=== PATIENT | female | born 1995 | race Caucasian/White ===

== ENCOUNTER 2024-04-12 11:44 | Observation (INO) | payer OTHER, SELFPAY ==
[2024-04-12 12:14] VITALS: BP 117/65; PULSE 80
[2024-04-12 12:32] VITALS: TEMP 36.6
[2024-04-12 13:05] VITALS: TEMP 36.2
[2024-04-12 13:08] LABS: Bilirubin Urine NEGATIVE (NEGATIVE); Blood Urine NEGATIVE (NEGATIVE); Clarity Urine SL CLOUDY (CLEAR); Color Urine YELLOW (YELLOW); Glucose Urine UA NEGATIVE (NEGATIVE); Ketones Urine NEGATIVE (NEGATIVE); Leukocyte Esterase Urine NEGATIVE (NEGATIVE); Nitrite Urine NEGATIVE (NEGATIVE); Protein Urine TRACE mg/dL (NEG/TRACE); Specific Gravity Urine 1.015 (1.005-1.025); Urobilinogen Urine >=8.0 EU/dL (0.2-1.0)
[2024-04-12 13:26] LABS: Urine Microscopic Indicated NO
== END 2024-04-12 14:30 | disposition home or self-care (01) ==
PROVIDERS: Admitting Provider Obstetrics & Gynecology Gynecology; Visit Provider Obstetrics & Gynecology Gynecology
DX: O36.8190 Decreased fetal movements, unspecified trimester, not applicable or unspecified (principal); Z3A.00 Weeks of gestation of pregnancy not specified; O99.891 Other specified diseases and conditions complicating pregnancy; R10.9 Unspecified abdominal pain
CPT/HCPCS: 59025; 81003; G0378; G0379

== ENCOUNTER 2024-04-16 00:46 | Emergency (ER) | payer OTHER, SELFPAY ==
[2024-04-16 00:50] VITALS: BP 104/69; PULSE 85; TEMP 37; O2SAT 99; BMI 30.9
--- OUTSIDE RECORDS SUMMARY | 2024-04-16 00:54 | XMS_ITS | CCD ---
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 medical benefits to weight loss. We can offer counselling, referral, and/or medical support in addressing this problem. Visit ChooseMyPlate.gov for useful information to help make better choices when eating. Your BMI and weight management will be followed at subsequent visits. 5. Over weight (E66.3: Overweight) See #4. 6. Smoker (F17.200: Nicotine dependence, unspecified, uncomplicated) Continue to work on smoking cessation. Follow-up With When Contact Information Ana Bynum CNP Only if needed Additional Instructions: Patient Education Tobacco Use Disorder BMI for Adults Migraine Headache Gastroesophageal Reflux Disease, Adult, Gogj-ds-[place] Managing Bipolar Disorder Problem List/Past Medical History Ongoing Acute low back pain Bipolar disorder BMI 29.0-29.9,adult Dizziness GERD (gastroesophageal reflux disease) Left hip pain Migraine without aura Over weight Smoker Historical Persistent headaches Medications Albuterol (Eqv-ProAir HFA) 90 mcg/inh inhalation aerosol, 2 puff(s), Inhalation, q4hr, PRN, Not taking aripiprazole 2 mg Tab clindamycin 300 mg oral cap, 300 mg= 1 cap(s), Oral, BID, Not taking Dulcolax Stool Softener escitalopram 5 mg oral tablet hydrOXYzine pamoate 25 mg Cap Naprosyn 500 mg Tab, 500 mg= 1 tab(s), Oral, BID, PRN, Not taking naproxen 500 mg Tab, 500 mg= 1 tab(s), Oral, BID, Not taking nicotine 14 mg/24 hr Transderm ER Film, 1 patch(es), Topical, Daily, Not taking omeprazole 40 mg Cap-DR, 40 mg= 1 cap(s), Oral, Daily, 2 refills Pepcid 20 mg Tab, 20 mg= 1 tab(s), Oral, Daily, Not taking Multivitamins, 1 tab(s), Oral, Daily, Not taking Zofran 4 mg Tab, 4 mg= 1 tab(s), Oral, q8hr, PRN, Not taking Zofran ODT 4 mg Tab-Dis, 4 mg= 1 tab(s), Oral, q6hr, Not taking Allergies Chantix Starter Pack (Hallucinations) SUMAtriptan (Numbness) penicillins (Rash) Social History Alcohol - Denies Alcohol Use, 08/07/2019 Employment/School - Not employed or in school, 08/07/2019 Substance Abuse - Denies Substance Abuse, 08/07/2019 Tobacco - High Risk, 08/07/2019 10 or more cigarettes (1/2 pack or more)/day in last 30 days Tobacco Use:. Never Smokeless Tobacco Use:. Cigarettes, Yes, 03/24/2022 Family History Diabetes mellitus type 2: Mother and Father. Primary malignant neoplasm of colon: Uncle. Immunizations Vaccine Date Status Comments influen (more content not included)... [facility] Comment on above: Result Comment: Elec tronically Signed By: Ana Bynum [email or web address]\Date and Time Signed: 03/24/22 12:08 EST Patient Educationon 03-24-19 Patient Education Gastroenterology Gastroesophageal Reflux Disease, Adult Gastroesophageal reflux (JO) happens when acid from the stomach flows up into the tube that connects the mouth and the stomach (esophagus). Normally, food travels down the esophagus and stays in the stomach to be digested. With JO, food and stomach acid sometimes move back up into the esophagus. You may have a disease called gastroesophageal reflux disease (GERD) if the reflux: ? Happens often. ? Causes frequent or very bad symptoms. ? Causes problems such as damage to the esophagus. When this happens, the esophagus becomes sore and swollen (inflamed). Over time, GERD can make small holes (ulcers) in the lining of the esophagus. What are the causes? This condition is caused by a problem with the muscle between the esophagus and the stomach. When this muscle is weak or not normal, it does not close properly to keep food and acid from coming back up from the stomach. The muscle can be weak because of: ? Tobacco use. ? . ? Having a certain type of hernia (hiatal hernia). ? Alcohol use. ? Certain foods and drinks, such as coffee, chocolate, onions, and peppermint. What increases the risk? You are more likely to develop this condition if you: ? Are overweight. ? Have a disease that affects your connective tissue. ? Use NSAID medicines. What are the signs or symptoms? Symptoms of this condition include: ? Heartburn. ? Difficult or painful swallowing. ? The feeling of having a lump in the throat. ? A bitter taste in the mouth. ? Bad breath. ? Having a lot of saliva. ? Having an upset or bloated stomach. ? Belching. ? Chest pain. Different conditions can cause chest pain. Make sure you see your doctor if you have chest pain. ? Shortness of breath or noisy breathing (wheezing). ? Ongoing (chronic) cough or a cough at night. ? Wearing away of the surface of teeth (tooth enamel). ? Weight loss. How is this treated? Treatment will depend on how bad your symptoms are. Your doctor may suggest: ? Changes to your diet. ? Medicine. ? Surgery. Follow these instructions at home: Eating and drinking ? Follow a diet as told by your doctor. You may need to avoid foods and drinks such as: ? Coffee and tea (with or without caffeine). ? Drinks that contain alcohol. ? Energy drinks and sports drinks. ? Bubbly (carbonated) drinks or sodas. ? Chocolate and cocoa. ? Peppermint and mint flavorings. ? Garlic and onions. ? Horseradish. ? Spicy and acidic foods. These include peppers, chili powder, winkler powder, vinegar, hot sauces, and BBQ sauce. ? [place] fruit juices and citrus fruits, such as oranges, keren, and limes. ? Tomato-based foods. These include red sauce, chili, salsa, and pizza with red sauce. ? Fried and fatty foods. These include donuts, martiniquais fries, potato chips, and high-fat dressings. ? High-fat meats. These include hot dogs, rib eye steak, sausage, ham, and cha. ? High-fat dairy items, such as whole milk, butter, and cream cheese. ? Eat small meals often. Avoid eating large meals. ? Avoid drinking large amounts of liquid with your meals. ? Avoid eating meals during the 2?3 hours before bedtime. ? Avoid lying down right after you eat. ? Do not exercise right after you eat. Lifestyle ? Do not use any products that contain nicotine or tobacco. These include cigarettes, e-cigarettes, and chewing tobacco. If you need help quitting, ask your doctor. ? Try to lower your stress. If you need help doing this, ask your doctor. ? If you are overweight, lose an amount of weight that is healthy for you. Ask your doctor about a safe weight loss goal. General instructions ? Pay attention to any changes in your symptoms. ? Take xdgl-bpl-wabnjev and prescription medicines only as told by your doctor. Do not take aspirin, ibuprofen, or other NSAIDs unless your doctor says it is okay. ? Wear loose clothes. Do not wear anything tight around your waist. ? Raise (elevate) the head of your bed about 6 inches (15 cm). ? Avoid bending over if this makes your symptoms worse. ? Keep all follow-up visits as told by your doctor. This is important. Contact a doctor if: ? You have new symptoms. ? You lose weight and you do not know why. ? You have trouble swallowing or it hurts to swallow. ? You have wheezing or a cough that keeps happening. ? Your symptoms do not get better with treatment. ? You have a hoarse voice. Get help right away if: ? You have pain in your arms, neck, jaw, teeth, or back. ? You feel sweaty, dizzy, or light-headed. ? You have chest pain or shortness of breath. ? You throw up (vomit) and your throw-up looks like blood or coffee grounds. ? You pass out (faint). ? Your poop (stool) is bloody or black. ? You cannot swallow, drink, or eat. Summary ? If a person has gastroesophag (more content not included)... [facility] Ambulatory Visit Summaryon 1 03-23-2021 Ambulatory Visit Summary JENI JANE :1995 Visit Date:01/20/2022 Ambulatory Visit Instructions Your Diagnosis GERD (gastroesophageal reflux disease) Dizziness Smoker BMI 29.0-29.9,adult Over weight Left hip pain Migraine without aura Your Care Team Attending Physician - Ana Bynum CNP Primary Care Physician - Ana Bynum CNP This Is Your Medications List sumatriptan (SUMAtriptan 100 mg Tab) Contact prescribing physician if questions or concerns albuterol (Albuterol (Eqv-ProAir HFA) 90 mcg/inh inhalation aerosol) clindamycin (clindamycin 300 mg oral cap) docusate (Dulcolax Stool Softener) famotidine (Pepcid 20 mg Tab) multivitamin, ( Multivitamins) naproxen (Naprosyn 500 mg Tab) naproxen (naproxen 500 mg Tab) nicotine (nicotine 14 mg/24 hr Transderm ER Film) omeprazole (omeprazole 40 mg Cap-DR) ondansetron (Zofran 4 mg Tab) ondansetron (Zofran ODT 4 mg Tab-Dis) Discharge Vitals Temperature (Oral) 36.7 ?C Heart Rate (Peripheral) 49 Blood Pressure 122/60 Height 162 cm Height 64 in Weight 77.2 kg Weight 169.84 lb BMI 29.42 What to do next You Need to Complete the Following XR Hip 2-3 Views Left, 01/20/22, Routine, Order for future visit, Transport Mode: Ambulatory, Reason: Hip pain, No, Left hip pain, pp_set_radiology_subspecialty , [facility] [place] XR Spine Scoliosis 1 view, 01/20/22, Routine, Order for future visit, Transport Mode: Ambulatory, Reason: Scoliosis, No, Scoliosis, pp_set_radiology_subspecialty , [facility] [place] Medications What How Much When Why Instructions New sumatriptan (SUMAtriptan 100 mg Tab) 1 Tablets By Mouth As Directed as needed for Migraine headache Migraine without aura may repeat dose in 2 hours if needed, max dose 2 tablets per day Pickup at [facility] Unchanged albuterol (Albuterol (Eqv-ProAir HFA) 90 mcg/ inh inhalation aerosol) 2 Puffs Inhalation Every 4 hours as needed for Cough and Congestion Contact prescribing physician if questions or concerns Unchanged clindamycin (clindamycin 300 mg oral cap) 1 Capsules By Mouth 2 times a day Contact prescribing physician if questions or concerns Unchanged docusate (Dulcolax Stool Softener) Contact prescribing physician if questions or concerns Unchanged famotidine (Pepcid 20 mg Tab) 1 Tablets By Mouth Every day Contact prescribing physician if questions or concerns Unchanged multivitamin, ( Multivitamins) 1 Tablets By Mouth Every day Contact prescribing physician if questions or concerns Unchanged naproxen (Naprosyn 500 mg Tab) 1 Tablets By Mouth 2 times a day as needed for for pain Contact prescribing physician if questions or concerns Unchanged naproxen (naproxen 500 mg Tab) 1 Tablets By Mouth 2 times a day with food Contact prescribing physician if questions or concerns Unchanged nicotine (nicotine 14 mg/ 24 hr Transderm ER Film) 1 Patches Topical Every day Smoker Step 2- apply daily for 2 weeks, then step down to 7 mg/ d. Contact prescribing physician if questions or concerns Unchanged omeprazole (omeprazole 40 mg Cap-DR) 1 Capsules By Mouth Every day GERD (gastroesophageal reflux disease) Contact prescribing physician if questions or concerns Unchanged ondansetron (Zofran 4 mg Tab) 1 Tablets By Mouth Every 8 hours as needed for Nausea/Vomiting Contact prescribing physician if questions or concerns Unchanged ondansetron (Zofran ODT 4 mg Tab-Dis) 1 Tablets By Mouth Every 6 hours Contact prescribing physician if questions or concerns Pharmacy Information [facility]: [address] [place], [place] [id number] [phone] Allergies penicillins (Rash) Problems Ongoing - Any problem that you are currently receiving treatment for. Acute low back pain BMI 29.0-29.9,adult Dizziness GERD (gastroesophageal reflux disease) Left hip pain Migraine without aura Over weight Persistent headaches Smoker Historical - Any problem that you are no longer receiving treatment for. [facility] Family Medicine Office/Clini c Noteon 01-20-2022 Family Medicine Office/Clinic Note Chief Complaint pt here for 1 month f/u. wants to go over labs. wants to talk about left hip, was told she had something wrong with it as a child. History of Present Illness Pt presents today for 1 month f/u. GERD- was started on Omeprazole 40 mg QD at last visit. Symptoms are gone. Laid off spicy foods and red sauce. Denies nausea or abd pain now. Dizziness- still has dizzy spells, when she stands up too fast. Not as often now. Associated with headaches. Headaches since she was in middle school- gets them almost daily. No auras. Frontal. Takes Tylenol for them. Cut Ibuprofen out because she was needing it more and more. Was taking 4 of them daily. Tylenol does help but still gets them daily. Leads to dizziness. Worse around her period. Smoker- was given nicotine patches last month. Tried using them for a few days, kept falling off. Was going through them quickly. Tried gum and did not like the taste of it. When she was little, she had a disease of her left hip, does not remember the name. Eroded the ball of her hip. Was told by a specialist it yunior have to grow back eventually. Has not had it checked up on. Hip bothers her on occ, when she is on her feet for too long. pops a lot as well. Denies paresthesia. Left hip pain radiates down into her ant thigh. Pain now 2/10. No limping. Always has lower back pain. No knee pain. When she sits crossed legged, her left hip only goes to far. Review of Systems PHQ Score Initial Depression Screen Score: 0 Constitutional: no fever, no chills, no sweats, no weakness, no fatigue, no body aches. Skin: no rash, no skin lesions, no petechiae. Eyes: no eye irritation, no eye drainage, no blurry vision, no double vision, no loss of vision, no foreign body sensation. Throat: no pain, no difficulty swallowing, no laryngitis, no hoarseness. Respiratory: no shortness of breath, no cough, no wheezing. Cardiovascular: no chest pain, no palpitations, no edema. Gastrointestinal: no nausea, no vomiting, no diarrhea, no bleeding, no abdominal pain. Genitourinary: no dysuria, no hematuria, no frequency, no urgency, no hesitancy. Musculoskeletal: reports low back pain, no neck pain, no shoulder pain, + left hip and thigh pain, no knee pain, no trauma/injury, no joint pain, no joint swelling, no muscle aches, no change in ROM. Neurovascular: no numbness, no tingling, reports headaches, no dizziness. Psychological: see depression screen. Physical Exam Vitals & Measurements T: 36.7 ?C(Oral) HR: 49(Peripheral) BP: 122/60 SpO2: 99% HT: 64 in HT: 162 cm WT: 77.2 kg WT: 169.84 lb BMI: 29.42 General: well developed, well groomed, well nourished, in no acute distress. Eyes: pupils equal, round, reactive to light. Conjunctivae normal and sclera clear. Extraocular movement not intact. Ears: bilateral external canals intact , no discharge. Hearing grossly normal to conversational speech. Neck: supple, no masses palpable. Trachea midline. Lungs: normal respiratory effort. Lungs clear and equal to auscultation throughout all nascimento anterior and posterior. Cardiovascular: S1 and S2 present, with regular rate and rhythm. No murmur. No peripheral edema. Abdomen: soft, non-distended, non-tender. Bowel sounds active throughout. Musculoskeletal: scoliosis noted. decreased range of motion with left hip. Point tenderness noted to left anterior upper thigh. Joints normal. No erythema, edema, effusion, crepitus, or ecchymosis. Gait steady without assistance. Neg trendelenberg. Neurologic: Cranial nerves II-XII grossly intact. Skin: [place], warm and dry. No rashes, ulcerations, or suspicious lesions noted on visible/exposed skin. Mental status: alert and oriented x 3. Normal mood and affect, normal behavior for age. Assessment/Plan 1. GERD (gastroesophageal reflux disease) (K21.9: Gastro-esophageal reflux disease without esophagitis) Stable, improved on PPI. Will continue for 8 weeks total. Work on lifestyle changes. 2. Dizziness (R42: Dizziness and giddiness) Need to improve headaches. 3. Smoker, (F17.200: Nicotine dependence, unspecified, uncomplicated) Will trial Chantix. Reviewed dosing. Smoker Ordered: varenicline, See Instructions, Step 1: Take 1 tablet daily for 3 days. then 1 tablet twice daily for 4 days. Start 1 week before planned quit date. Stop smoking 8-35 days after starting medicine if quit date unplanned., # 11 tab(s), Refills(s) 0, Pharmacy:... varenicline, 1 mg = 1 tab(s), Oral, BID, Start on day 8. Take 1 tablet twice daily. Take with food. If not quit date planned, stop smoking 8-35 days after starting drug is quit date unplanned. May continue additional 12 weeks if not successful., # 154 tab(s), Ref... 4. BMI 29.0-29.9,adult (Z68.29: Body mass index [BMI] 29.0-29.9, adult) The standard range for ages 18 and older is >=18.5 and < 25 kg/m2. Your BMI today was above this range, this falls in the overweight category and there are medical benefits to weight loss. We can offer counselling, re (more content not included)... [facility] Comment on above: Result Comment: Elec tronically Signed By: Ana Bynum CNP.memo\Date and Time Signed: 01/20/22 11:29 EST Patient Educationon 01-21-20 Patient Education Gastroenterology Gastroesophageal Reflux Disease, Adult Gastroesophageal reflux (JO) happens when acid from the stomach flows up into the tube that connects the mouth and the stomach (esophagus). Normally, food travels down the esophagus and stays in the stomach to be digested. However, when a person has JO, food and stomach acid sometimes move back up into the esophagus. If this becomes a more serious problem, the person may be diagnosed with a disease called gastroesophageal reflux disease (GERD). GERD occurs when the reflux: ? Happens often. ? Causes frequent or severe symptoms. ? Causes problems such as damage to the esophagus. When stomach acid comes in contact with the esophagus, the acid may cause soreness (inflammation) in the esophagus. Over time, GERD may create small holes (ulcers) in the lining of the esophagus. What are the causes? This condition is caused by a problem with the muscle between the esophagus and the stomach (lower esophageal sphincter, or LES). Normally, the LES muscle closes after food passes through the esophagus to the stomach. When the LES is weakened or abnormal, it does not close properly, and that allows food and stomach acid to go back up into the esophagus. The LES can be weakened by certain dietary substances, medicines, and medical conditions, including: ? Tobacco use. ? . ? Having a hiatal hernia. ? Alcohol use. ? Certain foods and beverages, such as coffee, chocolate, onions, and peppermint. What increases the risk? You are more likely to develop this condition if you: ? Have an increased body weight. ? Have a connective tissue disorder. ? Use NSAID medicines. What are the signs or symptoms? Symptoms of this condition include: ? Heartburn. ? Difficult or painful swallowing. ? The feeling of having a lump in the throat. ? A?bitter taste in the mouth. ? Bad breath. ? Having a large amount of saliva. ? Having an upset or bloated stomach. ? Belching. ? Chest pain. Different conditions can cause chest pain. Make sure you see your health care provider if you experience chest pain. ? Shortness of breath or wheezing. ? Ongoing (chronic) cough or a night-time cough. ? Wearing away of tooth enamel. ? Weight loss. How is this diagnosed? Your health care provider will take a medical history and perform a physical exam. To determine if you have mild or severe GERD, your health care provider may also monitor how you respond to treatment. You may also have tests, including: ? A test to examine your stomach and esophagus with a small camera (endoscopy). ? A test that?measures the acidity level in your esophagus. ? A test that?measures how much pressure is on your esophagus. ? A barium swallow or modified barium swallow test to show the shape, size, and functioning of your esophagus. How is this treated? The goal of treatment is to help relieve your symptoms and to prevent complications. Treatment for this condition may vary depending on how severe your symptoms are. Your health care provider may recommend: ? Changes to your diet. ? Medicine. ? Surgery. Follow these instructions at home: Eating and drinking ? Follow a diet as recommended by your health care provider. This may involve avoiding foods and drinks such as: ? Coffee and tea (with or without caffeine). ? Drinks that contain?alcohol. ? Energy drinks and sports drinks. ? Carbonated drinks or sodas. ? Chocolate and cocoa. ? Peppermint and mint flavorings. ? Garlic and onions. ? Horseradish. ? Spicy and acidic foods, including peppers, chili powder, winkler powder, vinegar, hot sauces, and barbecue sauce. ? [place] fruit juices and citrus fruits, such as oranges, keren, and limes. ? Tomato-based foods, such as red sauce, chili, salsa, and pizza with red sauce. ? Fried and fatty foods, such as donuts, martiniquais fries, potato chips, and high-fat dressings. ? High-fat meats, such as hot dogs and fatty cuts of red and white meats, such as rib eye steak, sausage, ham, and cha. ? High-fat dairy items, such as whole milk, butter, and cream cheese. ? Eat small, frequent meals instead of large meals. ? Avoid drinking large amounts of liquid with your meals. ? Avoid eating meals during the 2?3 hours before bedtime. ? Avoid lying down right after you eat. ? Do not exercise right after you eat. Lifestyle ? Do not use any products that contain nicotine or tobacco, such as cigarettes, e-cigarettes, and chewing tobacco. If you need help quitting, ask your health care provider. ? Try to reduce your stress by using methods such as yoga or meditation. If you need help reducing stress, ask your health care provider. ? If you are overweight, reduce your weight to an amount that is healthy for you. Ask your health care provider for guidance about a safe weight loss goal. General instruct (more content not included)... [facility] Coding Summary.on 01-04-2022 Coding Summary. CD:[id number]:[id number] Gh0bWw+PG hlYWQ+CF2KPIThD02ymVBbpY2KA1c GGQ0QROPXKNKAMX0IPL7qcKF9DXvb Q0PqazGv QykfzGGdAS23ZAh4HZU8kNeyWFofk H0xnTJxN0u3OiLhIU47zX30UPkqXG UpNeV6DdBetlazvZUl C8rgKvJrnRPqTkz+PHRhYmxlIHdpZ JQtWOarTRMlHbItaJfkWO7dAi7tTI VyLWNvbGxhcHNlOiBj k6ivFCLhEOjjUJ3cfDvsL6TzrQK2B BRei5m1Yp21uBP+VXTfUSD3qTldHG srd946ByOas3wuHBW5 zUCtTXnvHAO7H08kt5M6QFSoUMJzI BD5zOR2fO2knJjpizfhY5DxtZMoOl M1MPH5nYGnwR3jzWgf khnziZ4hTeq+E37QFA7JCCREWA5OK pu6L4BzFyaibMG+RH79KIIzEO18eE ZteIPsh0hjxSy2FuEk PGHnLOY5lWwcUTxdv8OpOYYbC43hg JUuv9W1BVJgbXkepCFnNpBqhTJ9zP 8wGLthuitmv1ijceql Vkhnz7fqnx10oM26Y42uNGmiTYKsT SJ8CXNsGHOreHntoa8snZ3oLd9+ID eiw7ltu2oqkYc1RvIk LVYqnkQafFgsHBE2s9XiYr16I0Wpw Zrsb5DdHot0oj87lEEce1J1iSJ3RD glTYBjdY1uRFchCeS8 KQDcHoAioS25pWByMExkXb1jsAssv MsgSN1wSQOvbjdvHLSowV8aKTUnfI CxwKifJL8yQIXtacjy c416BrOpJGO3JPCsxAUjD6NvwY3yN oCyFQLbRIZoF9EsqTUeNYxuC862ZN jrPaB6OQDgbsXpE8Wg NFDdsKqzXvL6p2U5Fe5Tj4QqojyuV JM9XAhpGXZqGkX4RqOcZcM2T1UrPh k6PIVstWdfPH3zR2Mq OIHfscaknmmtpYH2KAZnWJDrzX39f KMgUOpfQj7de3A2l281SGJrZFLrxA 92Vs7vpHwmMBMpcMBJ dM6ovwinw0rejsehCnZxICShQGs4R Il9XQWcfPrgDrTaRGI7QsL7VGM6aK GgfV2bvLrdpehsiD5n Oyc+N68qnT9iQGC1TTZ2mkpfQBAqt qVpOP28ZG45K4SvNitorNSrdCA+PG EbdlWfjFmkLF7yMoHw w6ciq0BaHZdvA3CoYECgDZrjVai9N KAtBIP1dVS5mL8cYRAiOZwfv1N6xP Y7M3DubpKsuo0vl0iz BYUyMWbyW78xvWZtx5M5BTXrvUJ7C NZpoZiaYqVjnL89Hhu+PGNvbGdyb3 OoYmynh0uuc9zhtNz6 TmSxYVTpkkSyjQzlRFJ3x0AtSp06E 29sIHdpZHRoPSIxNSUiIHZhbGlnbj 5yrV7wQk8+PGNvbCB3 dGG6rL5iJTWvMqJ4SIlvS783JpTha GTnEjdqg9lvs3chvSi6IxLjFFQhxb BvjPrdLUK3f5JhMh27 T50kJIekRHPlDWMaVHSgAMQxoMrlk n8kiY9hUj3+QQ1lw1xlgb72qF86lV I+OAHdFYP7dSgwYFtr UOBkfN8qSAzwXvJ2UDBuDeUswO69f PEyAQsxGx5feTtodBvnZX3yVTRhtc pxa593QnKko8jwEYIx dJIdNLteKWG2T36if2M7OZYlLCCmU EI0fYH1tI8lmFaqpsfhySDuqRelfd IrbNpqPRntBSdeP177 JFFikCxkZtLfzOnldzRrJxAeNZe3N 8ZtUrh7NRJtnCojYS8xgDChSFppEv 0xrQnxgFvtQM5nAEXb koqkt650TtSyz0qrWZChsVRkJVumT IQ3I68th5Z3QDZmDOJpBCD7xJC6zA 1hbGlnbjogbGVmdDsg ujQwyBztZOwqHNemD821YGFdrVexV gMcwvUrDQJpePF8GS31WN71kROwb7 H5lDA7G1RyEIIyffdi elydlSB2QCXnCATrfO24Qr9qvHqeN f4nTVXbDXF6FSXmyJZsF5AfiE0dNt GsFYMzMRUfS2YzuCBl FLcqI634BXmcNsX3HDEtiqFtD6DkF NUinOnwWiM8x5H9Fh3XX2A2QE54WR 56tKSew0C2uHJ1S6Ms LDMiauiobschcTV6RKSaVPWoaS42I l3ksShoNg5oXCVjAYF7YRKbwENbE5 GvyG7lPbUhWFQwQBVt T6YhqZOmYIbqT152CPrmCsJ2PSEgf rLeW9ItYYCwiObqGiD3d5F8Ly8HTP d5KY54MZ56rTXvl1Z3 oTA3J8RnUBKahmvfrmnekHV9XWPyG FSdcR82Xh1wwRybAw6nCTKvVLI0AU EhlGCiI1AebS3lUnAw VCHyKAAbF6EtrEEvTWceQ237HAknK kZ1OQKtgxOlH7ToGHQotYcgPuO0t6 Z8Vr3DQXRkDF05NLW7 uQU6YC46FJ33C5AoCcxzxYIjjUZ+P HRhYmxlIHdpZHRoPScxMDAlJyBzdH cyWU0zPv0lJGZeDRRd rWwwiUCnUoEka3fcBBXaGVhsWH9or GspV1XrfCO5HLPpi3c3Rf90W76vX1 JvdXA+LWMkzRW1fHM8 nW5cLbUsYgF6LZtxS013YsHheFUvH ormz3vwh2rpnOh8MhN7AVZmsqJofS hvKMH4u9DfYr77U26e DBtaDKTqICGbLZDfEBRfqDmgih6vw G9wIi8+PLSmvHF3gLI0nS1tWyLgHr T4BClpR107WmKfxOUf Xkswn9qvu4wuhDe8GwByZDDhgmXuo FllYLM8j1NsGd45H5RitKnku1JwWe u8rx22yPRuf4K3eGL7 P0ElSBGytzspsZJuaXudKX3zMRImi aeyLJYzpD6iEOFuR9w8YbCgLmS1XJ elU0SjamD4UOGmyIIi ZSlrKDK8U41xj6O5ASXiBSAcYYO7t LB7mY7jeHypeugccXStsBhifiQapK weOHomUOakN392PNCb oOspODPscQ8sAOLnpXUgqElmLD7aQ TBpbjsnPkFDUkVFLCBKRVdFTEwgUj wvdGQ+JVQhSLN3uGnt KHmvUYGjhC3rKTRaH1p8AuFpIqQ3P ItqT6TaCVJwfwstGo23vU9iWaRpDt A8HMufI4SfabR6DORr pJTnROaaMMO6D16ki6E0WKQvQDIvS XY0iMF0bP9njElptbmguHEvqYlvrb TgrAqzAOqnVEvzI298 LTSztCeqHpQfHgXdMmR3RBc3X2MmZ pp9PEOxgCebQZ2waKIvOAdkQp0mdF ggvPhiDH3hKRRpxmon GMKirN5bBEModUEhuZdyWU0zJHXsh qxpa643PjJwJZA4AQTclATeJ0ZqzT 3eRdIjPLVyPZTaX6So yFCsTHdrD247IPqbZoJ0TRPxysNdJ 2YrYBXbsKlzXxB5e2E1Vy5sNURHNC FyczwvdGQ+PHRkIHN0 zGryTNweDYCfmP4yJNHfL6e6JpAkJ zI4OIpiV7RuKPEvhkuaPl04xN8pOd TiJoX9GMieH8NovmF3 JHFjtHElSWxeJDH7M25gd8E8KJYzZ MKxXWB3wUD6wY2rrNoiruvqfQIagW sgdmVydGljYWwtYWxp W334REEpqMdnJiAxbHVnLDlrsMU+P YRiSDT7kDcrMYrfOZRgeJ0uGEWzY6 o7PoCkYoO9GLspB2Oi HOMjzlxyEs55bR6qUjXwIdO6EXjdZ 6QmllH2EBHvbZRkSGluJQI4I16zv4 J1SISkZRCtSNH2zRQ7 bU1euJrlgnrpmLRdwSpcwvYraAhgN BsnVYrzZ592CIKteEkzDt43xWAedZ pfbkK3D8UaAnmahKQ+ CU30RGUyWF00bFLghBLqh4rvjUe8M wAiSTDzZSE3fBgqJUitf4UdMORmP0 7ukKNww0X6YVUqoNwr kOSiVaOzlVZ5kW2aWSkiskcjk7eld aniKcbtj5xvrh63kR47M17lHZdvHE RoPSIzMCUiIHZhbGln kt2buY1jPv8+VACofSX5kVO9gA1vW qOuHzA6ZWeeX203XlYgwTGjFygou3 lzg0ptoPs0TsJnORYo oqAqtUqpSPF6k3TmSz01S07xCErzX WWvIDOlUIYiHYIfuSwrpw4mkM2nEu 8+VR5gw4nydo14sG40 dHI+JXDeDEH8tTtuOSswUREyxY2gP ScpEdJ1RXMjJzAdmI89mANtTBluTj 5zzBvntLjrRL6yBKUw qlkhh049IeQiz0jxUVBmzTMqLHsnJ CE1O44uq6Z5HRUjCJNrXAZ8kUW1nR 1hbGlnbjogbGVmdDsg eeCmzQbrYErbXZaiG777YHBgyWtzM mSjfTNqZ0ygnzSVNK1uWlelaAE+PH EtFDI1tIqtIBobFMTd mN1gPNTwI0d0UsCoBeR7YHhyA9Azt zI8RFKtuXDnGFUhbIOJiB1wptqbh7 xvcjogIzAwMDAwMDt0 NNy0EXXfrWquIfKcHAK7SdU3TPD4y YClcO6xpCejezbrnA4hZio+RklOOj wvdGQ+WNTyAAU4cPzn WTorEZOecE7pPIMnB4s4TxZuChZ1I NspA2ZeilC2KPBmiOKbRJPpkXBFqF 9nowpqe6dcqiyzHvJn OLPkUFp0FZd1OULgtRofJvLuIAY9G vP9WTQ2tVJbwT2znWpjkmnueU7oDs c+TVJOOjwvdGQ+PHRk HCJ7sVbxLXqvLSYriE4kTZVzH8p0B bJpKkP9HUjgY6HqlhD4RGBisNRrIK RvoDHMsI5mnoalg0ey frocMaIxVOBgECl3YVt9SPHzgYtzG iElUOB1VcI6JZI2xWLlxP2cdMndzn lkcI6oHxf+FWD7MTQ7 KR17MO45L7DjDeemlEMbtWG+PHRhY mxlIHdpZHRoPScxMDAlJyBzdHlsZT 3kWe2tUAEvHFSxbTpx cHNl (more content not included)... Normal [facility] Auto Diffon 12-29-2021 Basophils/100 WBC (Bld) 0.9 % Normal 0.0-2.0 [facility] Comment on above: Order Comment: Order Added by Discern Expert. Performed By: #### 1 [id number], 1560318, 2130855, 13070105, 6801834, 8235437 ####[address] [address] Basophils/Leukocyte s Auto (Bld) [Pure # fraction] 0.1 E9/L Normal 0.0-0.2 [facility] Comment on above: Order Comment: Order Added by Discern Expert. Performed By: #### 1 6269536, 2177956, 0204849, 71718031, 7729544, 1512869 ####[address] [place] [address] Eosinophils/100 WBC (Bld) 1.3 % Normal 0.0-8.0 [facility] Comment on above: Order Comment: Order Added by Discern Expert. Performed By: #### 1 9194625, 0709364, 6677971, 78050471, 9817754, 6300283 ####[facility] [address] [place] [address] Eosinophils/Leukocy shady Auto (Bld) [Pure # fraction] 0.2 E9/L Normal 0.0-0.5 [facility] Comment on above: Order Comment: Order Added by Discern Expert. Performed By: #### 1 3304830, 8911827, 9386365, 81789616, 4962165, 1922708 ####[facility] [address] [place] [address] Lymphocytes/100 WBC (Bld) 16.7 % Normal 14.0-50.0 [facility] Comment on above: Order Comment: Order Added by Discern Expert. Performed By: #### 1 6983618, 2895543, 0000679, 13810325, 5694270, 8366254 ####[address] [address] Lymphocytes/Leukocy shady Auto (Bld) [Pure # fraction] 2.1 E9/L Normal 1.0-4.0 [facility] Comment on above: Order Comment: Order Added by Discern Expert. Performed By: #### 1 7755578, 3948213, 7591974, 06192557, 5690650, 4824778 ####[address] [address] Monocytes/100 WBC (Bld) 6.7 % Normal 4.0-14.0 [facility] Comment on above: Order Comment: Order Added by Discern Expert. Performed By: #### 1 9546139, 1407470, 3189348, 03003103, 1379630, 3427748 ####[address] [address] Monocytes/Leukocyte s Auto (Bld) [Pure # fraction] 0.8 E9/L Normal 0.2-1.0 [facility] Comment on above: Order Comment: Order Added by Discern Expert. Performed By: #### 1 6414179, 9089191, 3894436, 03080415, 0170826, 1895779 ####[address] [address] Neutrophils/100 WBC (Bld) 74.4 % Normal 36.0-75.0 [facility] Comment on above: Order Comment: Order Added by Discern Expert. Performed By: #### 1 7542471, 0670399, 3182869, 82175128, 7950986, 5113814 ####[address] [address] Neutrophils/Leukocy shady Auto (Bld) [Pure # fraction] 9.3 E9/L High 2.0-7.5 [facility] Comment on above: Order Comment: Order Added by Discern Expert. Performed By: #### 1 6865298, 3432479, 7668194, 34279001, 4859747, 0382059 ####[facility] [address] [place] [address] CBC w/ Auto Diffon Erythrocyte distribution width (RBC) [Ratio] 12.9 % Normal 10.9-14.2 [facility] Comment on above: Performed By: #### 1 6934361, 2715133, 1710241, 61739988, 7235927, 2079131 ####[address] [place] [address] Hematocrit (Bld) [Volume fraction] 41.8 % Normal 34.0-46.0 [facility] Comment on above: Performed By: #### 1 1944595, 2880333, 7008643, 14116461, 9211763, 1645060 ####[facility] [address] [place] [address] Hemoglobin (Bld) [Mass/Vol] 14.5 g/dL Normal 12.0-16.0 [facility] Comment on above: Performed By: #### 1 9527919, 2313973, 6438687, 88048370, 8290497, 0752459 ####[address] [place] [address] MCH (RBC) [Entitic mass] 29.5 pg Normal 27.0-34.0 [facility] Comment on above: Performed By: #### 1 2762886, 9041282, 3688894, 07225151, 3863613, 6927555 ####[address] [place] [address] MCHC (RBC) [Mass/Vol] 34.7 g/dL Normal 31.4-36.0 [facility] Comment on above: Performed By: #### 1 8157751, 5956347, 3269804, 59015807, 5562092, 5811938 ####[facility] [address] [place] [address] MCV (RBC) [Entitic vol] 85.3 fL Normal 80.0-100.0 [facility] Comment on above: Performed By: #### 1 3735062, 3461660, 9930879, 41148422, 3837225, 3982045 ####[facility] [address] [place] [address] Platelet mean volume (Bld) [Entitic vol] 8.6 fL Normal 6.4-10.8 [facility] Comment on above: Performed By: #### 1 0904754, 8987557, 4638785, 34945415, 6256329, 0158414 ####[address] [place] [address] Platelets (Bld) [#/Vol] 342.0 E9/L Normal 150.0-500.0 [facility] Comment on above: Performed By: #### 1 3681966, 4553500, 0668320, 80722813, 8395839, 3679888 ####[address] [place] [address] RBC (Bld) [#/Vol] 4.9 E12/L Normal 4.3-5.9 [facility] Comment on above: Performed By: #### 1 1938242, 5676110, 0500116, 13232194, 1700548, 3466087 ####[facility] [address] [place] [address] WBC corrected for nucl RBC Auto (Bld) [#/Vol] 12.5 E9/L High 4.0-11.0 [facility] Comment on above: Result Comment: Slid e reviewed by ts. Performed By: #### 1 4558862, 3577103, 4204150, 42053948, 4225901, 6419538 ####[address] [place] [address] CMPon 12-29-2021 Albumin [Mass/Vol] 4.3 g/dL Normal 3.3-5.0 [facility] Comment on above: Performed By: #### 1 3468627, 9039868, 6807709, 29155599, 3969427, 8474304 ####[facility] [address] [place] [address] Albumin/Globulin (S) [Mass conc ratio] 1.0 Low 1.1-2.2 [facility] Comment on above: Performed By: #### 1 5956151, 4824220, 3310726, 93721666, 7037427, 4091459 ####[facility] [address] [place] [address] ALP [Catalytic activity/Vol] 76 Int._Unit/L Normal 21-98 [facility] Comment on above: Performed By: #### 1 6054224, 9438606, 7036092, 52948420, 8554219, 3131543 ####[facility] [address] [place] [address] ALT No additional P-5'-P [Catalytic activity/Vol] 13 Int._Unit/L Normal 6-46 [facility] Comment on above: Performed By: #### 1 6761492, 2145378, 0796186, 50657020, 9539235, 1294045 ####[facility] [address] [place] [address] Anion gap [Moles/Vol] 13 mmol/L Normal 6-16 [facility] Comment on above: Performed By: #### 1 6378891, 5763258, 2072381, 75856998, 1058394, 9382471 ####[facility] [address] [place] [address] AST [Catalytic activity/Vol] 15 Int._Unit/L Normal 5-43 [facility] Comment on above: Performed By: #### 1 4116436, 0075354, 2346379, 75339636, 1068965, 8247581 ####[facility] [address] [place] [address] Bilirubin [Mass/Vol] 0.6 mg/dL Normal 0.0-1.1 [facility] Comment on above: Performed By: #### 1 6822603, 5427779, 6565089, 60015068, 4961338, 9690882 ####[facility] [address] [place] [address] Calcium [Mass/Vol] 9.7 mg/dL Normal 8.9-11.1 [facility] Comment on above: Performed By: #### 1 5041982, 4956297, 8074899, 35485119, 8510670, 7466533 ####[facility] [address] [place] [address] Chloride [Moles/Vol] 105 mmol/L Normal 101-111 [facility] Comment on above: Performed By: #### 1 0222028, 6246805, 2189457, 77450530, 7066208, 0098116 ####[facility] [address] [place] [address] CO2 [Moles/Vol] 24 mmol/L Normal 21-31 [facility] Comment on above: Performed By: #### 1 1964366, 8943192, 3927668, 25941953, 5535237, 6376383 ####[facility] [address] [place] [address] Creatinine [Mass/Vol] 0.8 mg/dL Normal 0.5-1.3 [facility] Comment on above: Performed By: #### 1 7668436, 7134529, 3843710, 08647800, 7116399, 3113505 ####[facility] [address] [place] [address] Globulin (S) [Mass/Vol] 4.1 g/dL High 1.4-4.0 [facility] Comment on above: Performed By: #### 1 1168163, 9454963, 9046600, 91484339, 4801783, 8495608 ####[facility] [address] [place] [address] Glucose [Mass/Vol] 99 mg/dL Normal 55-199 [facility] Comment on above: Result Comment: If t his glucose result represents a fasting glucose, interpretation should refer to the following reference range: 55-99 mg/dL Performed By: #### 1 2292874, 5831770, 0942101, 76738554, 6360913, 6267077 ####[facility] [address] [place] [address] Potassium [Moles/Vol] 3.9 mmol/L Normal 3.5-5.3 [facility] Comment on above: Performed By: #### 1 7429941, 4313673, 8854443, 66085061, 3323623, 6831571 ####[facility] [address] [place] [address] Protein [Mass/Vol] 8.4 g/dL High 6.0-7.8 [facility] Comment on above: Performed By: #### 1 1394017, 7762006, 3717569, 27571402, 9754278, 0763427 ####[facility] [address] [place] [address] Sodium [Moles/Vol] 138 mmol/L Normal 135-145 [facility] Comment on above: Performed By: #### 1 7566953, 1479138, 2392461, 96007788, 4917574, 1574152 ####[facility] [address] [place] [address] Urea nitrogen [Mass/Vol] 9 mg/dL Normal 5-21 [facility] Comment on above: Performed By: #### 1 1762290, 4439443, 1033473, 99885623, 3030218, 9935474 ####[facility] [address] [place] [address] Urea nitrogen/Creatinine [Mass ratio] 11 No Units Normal 10-20 [facility] Comment on above: Performed By: #### 1 4121478, 4217222, 8506137, 66316590, 9468132, 3645843 ####[facility] [address] [place] [address] Consent for Treatmenton 11-0 Consent for Treatment [id number]:127 Normal [facility] Ferritinon 12-29-2021 Ferritin [Mass/Vol] 38 ng/mL Normal 11-307 [facility] Comment on above: Result Comment: NORM ALS MEN <30 YRS 16-132 ng/mL MEN >30 YRS 8-338 ng/mL WOMEN (PREMEN) 6-104 ng/mL WOMEN (POSTMEN) 12-210 ng/mL Performed By: #### 1 3352696, 4244763, 0469990, 96684452, 0764279, 3026785 ####[facility] [address] [place] [address] TSH With T4fr Reflexon 12-29 TSH Qn 1.59 m[IU]/L Normal 0.34-5.60 [facility] Comment on above: Performed By: #### 1 9753640, 3664723, 2244212, 34063535, 3479656, 2765197 ####[facility] [address] [place] [address] eGFRon 12-29-2021 GFR/1.73 sq M.predicted among blacks MDRD (S/P/Bld) [Vol rate/Area] mL/min/{1.73_m2} Normal >=59 [facility] Comment on above: Order Comment: Order added by Discern Expert. Result Comment: eGFR is race adjusted. AA=. Performed By: #### 1 5099078, 7740611, 8027997, 39888142, 3702454, 6375548 ####[facility] [address] [place] [address] GFR/1.73 sq M.predicted among non-blacks MDRD (S/P/Bld) [Vol rate/Area] mL/min/{1.73_m2} Normal >=59 [facility] Comment on above: Order Comment: Order added by Discern Expert. Result Comment: Instructional Design Manager ken kidney disease could be indicated at eGFR's of less than 60 mL/min/1.73m2. Kidney failure is indicated at less than 15 mL/min/1.73m2. Performed By: #### 1 5009388, 6997889, 8585108, 84818053, 2148534, 7906342 ####[facility] [address] [place] [address] Ambulatory Visit Summaryon 1 02-22-2021 Ambulatory Visit Summary JENI JANE :1995 Visit Date:12/23/2021 Ambulatory Visit Instructions Your Diagnosis GERD (gastroesophageal reflux disease) Dizziness Persistent headaches BMI 29.0-29.9,adult Over weight Smoker Your Care Team Attending Physician - Ana Bynum CNP Primary Care Physician - Ana Bynum CNP This Is Your Medications List albuterol (Albuterol (Eqv-ProAir HFA) 90 mcg/inh inhalation aerosol) clindamycin (clindamycin 300 mg oral cap) docusate (Dulcolax Stool Softener) famotidine (Pepcid 20 mg Tab) multivitamin, ( Multivitamins) naproxen (Naprosyn 500 mg Tab) naproxen (naproxen 500 mg Tab) omeprazole (omeprazole 40 mg Cap-DR) ondansetron (Zofran 4 mg Tab) ondansetron (Zofran ODT 4 mg Tab-Dis) Discharge Vitals Temperature (Oral) 36.6 ?C Heart Rate (Peripheral) 78 Blood Pressure 124/62 Height 162 cm Height 64 in Weight 76.6 kg Weight 168.52 lb BMI 29.19 What to do next You Need to Complete the Following CBC w/ Auto Diff, Blood, Routine collect, 12/23/21, Order for future visit, Lab Collect, Dizziness Invalid Interpretation Code Persistent headaches, Print Label By Order Location\.b r\ TSH With T4fr Reflex, Blood, Routine collect, 12/23/21, Order for future visit, Lab Collect, Dizziness [facility] Family Medicine Office/Clini c Noteon 12-23-2021 Family Medicine Office/Clinic Note Chief Complaint pt here to est care. concerns of stoamch pain, onset years. wants to talk about usgar levels. History of Present Illness Pt presents today to est care. Medical history includes: Abdominal issues- every Am she is really nauseous. Has issues eating breakfast, drinking coffee. Stomach is very upset. Has had issues with this since she was a teen. Never had any scopes done. She always just dealt with it. Has tried Zofran in the past which helps sometimes. Sometimes she will vomit. Hx constipation, takes stool softeners with relief. Is supposed to also be taking fiber but ran out. Has taken OTC Famotidine with some relief but never took it regularly. Alcohol on occasion. Smokes almost 1 ppd x 6 yrs. Used to use THC, but no longer dose. Used to eat a lot of spicy foods but cannot stomach it anymore. Can do red sauce is she puts sugar in it. Denies chocolate. She feels dizzy and lightheaded when she stands up; started a few months ago. Óscar down does not. The other day she had to grab her knees and close her eyes. She tried checking her blood sugar on her moms meter and her BS read 91. Headaches since she was in middle school- gets them almost daily. No auras. Frontal. Takes Tylenol for them. Cut Ibuprofen out because she was needing it more and more. Was taking 4 of them daily. Tylenol does help. Review of Systems PHQ Score Initial Depression Screen Score: 0 Constitutional: no fever, no chills, no body aches. Skin: no rash, no lesions, no excessive bruising. Ears: no ear pain, no itching, no tinnitus, no muffled hearing. Eyes: no eye pain, changes in vision, spots before the eyes. Nose: no bloody noses, no nasal congestion, no rhinorrhea. Mouth/Throat: no sore throat, no difficulty chewing, no difficulty swallowing. Respiratory: no shortness of breath, no cough, no wheezing. Cardiovascular: no chest pain, no palpitations, no edema. Gastrointestinal: + nausea, no vomiting, no diarrhea, + constipation, no blood in the stools. Genitourinary: no dysuria, no hematuria, no frequency. Neurologic: + headache, + dizziness, no numbness, no weakness. Psychiatric: see depression screen. Heme/Lymph: no bleeding tendency, no bruising tendency, no swelling. MSK: no painful joints, no swelling of joints. Physical Exam Vitals & Measurements T: 36.6 ?C(Oral) HR: 78(Peripheral) BP: 124/62 SpO2: 97% HT: 64 in HT: 162 cm WT: 76.6 kg WT: 168.52 lb BMI: 29.19 General: well developed, well groomed, well nourished, in no acute distress. Eyes: pupils equal, round, reactive to light. Conjunctivae normal and sclera clear. Ears: bilateral external canals intact , no discharge. Bilateral tympanic membrane pearly ramirez and intact, light reflex present. No pain with manipulation of tragus and pinna bilaterally. Hearing grossly normal to conversational speech. Nose: no congestion, no erythema; pink & moist turbinates; no rhinorrhea. Mouth: mucous membranes pink, moist and intact. Union posterior oropharynx, no palatal inflammation, uvula midline, no cobble-stoning. Neck: supple, no masses palpable. Trachea midline. No palpable cervical adenopathy. Thyroid without nodules/masses. Lungs: normal respiratory effort. Lungs clear and equal to auscultation throughout all nascimetno anterior and posterior. Cardiovascular: S1 and S2 present, with regular rate and rhythm. No murmur. Abdomen: soft, non-distended, non-tender. No organomegaly. No guarding or rigidity. Bowel sounds active throughout. Musculoskeletal: Joints normal. No erythema, edema, effusion, crepitus, or ecchymosis. Gait steady without assistance. Neurologic: Cranial nerves II-XII grossly intact. Skin: Union, warm and dry. No rashes, ulcerations, or suspicious lesions noted on visible/exposed skin. Mental status: alert and oriented x 3. Normal mood and affect, normal behavior for age. Assessment/Plan 1. GERD (gastroesophageal reflux disease) (K21.9: Gastro-esophageal reflux disease without esophagitis) Will start on Omeprazole 40 mg Qd. Will trial on this for about 8 weeks then wean down to H2 madalyn. Encouraged to avoid large/late meals, hot/spicy foods, tight fitting clothing, excessive caffeine consumption and use of tobacco products. Weight reduction may also be beneficial. Reviewed potential side effects of long-term use of PPIs including electrolyte imbalances, osteoporosis and C. difficile. If not improved on PPI, will refer to GI. Ordered: omeprazole, 40 mg = 1 cap(s), Oral, Daily, # 30 cap(s), Refills(s) 2, Pharmacy: [facility], 162, cm, 12/23/21 13:01:00 EDT, Height/Length Dosing, 76.6, kg, 12/23/21 13:01:00 EDT, Weight Dosing 2. Dizziness (R42: Dizziness and giddiness) Labs ordered. Will call with results. Stay hydrated. Ordered: CBC w/ Auto Diff Comprehensive Metabolic Panel Ferritin TSH With T4fr Reflex 3. Persistent headaches (R51.9: Headache, unspecified) See #2. Avoid known triggers. Will continue to monitor headaches and trial on Imitrex (more content not included)... [facility] Comment on above: Result Comment: Elec tronically Signed By: Fletcher DALE, Ana Hdz\.memo\Date and Time Signed: 12/23/21 13:36 EDT [facility] 12-23-2021 Forms [id number] [facility] Patient Educationon 12-24-19 Patient Education Gastroenterology Gastroesophageal Reflux Disease, Adult Gastroesophageal reflux (JO) happens when acid from the stomach flows up into the tube that connects the mouth and the stomach (esophagus). Normally, food travels down the esophagus and stays in the stomach to be digested. However, when a person has JO, food and stomach acid sometimes move back up into the esophagus. If this becomes a more serious problem, the person may be diagnosed with a disease called gastroesophageal reflux disease (GERD). GERD occurs when the reflux: ? Happens often. ? Causes frequent or severe symptoms. ? Causes problems such as damage to the esophagus. When stomach acid comes in contact with the esophagus, the acid may cause soreness (inflammation) in the esophagus. Over time, GERD may create small holes (ulcers) in the lining of the esophagus. What are the causes? This condition is caused by a problem with the muscle between the esophagus and the stomach (lower esophageal sphincter, or LES). Normally, the LES muscle closes after food passes through the esophagus to the stomach. When the LES is weakened or abnormal, it does not close properly, and that allows food and stomach acid to go back up into the esophagus. The LES can be weakened by certain dietary substances, medicines, and medical conditions, including: ? Tobacco use. ? . ? Having a hiatal hernia. ? Alcohol use. ? Certain foods and beverages, such as coffee, chocolate, onions, and peppermint. What increases the risk? You are more likely to develop this condition if you: ? Have an increased body weight. ? Have a connective tissue disorder. ? Use NSAID medicines. What are the signs or symptoms? Symptoms of this condition include: ? Heartburn. ? Difficult or painful swallowing. ? The feeling of having a lump in the throat. ? A?bitter taste in the mouth. ? Bad breath. ? Having a large amount of saliva. ? Having an upset or bloated stomach. ? Belching. ? Chest pain. Different conditions can cause chest pain. Make sure you see your health care provider if you experience chest pain. ? Shortness of breath or wheezing. ? Ongoing (chronic) cough or a night-time cough. ? Wearing away of tooth enamel. ? Weight loss. How is this diagnosed? Your health care provider will take a medical history and perform a physical exam. To determine if you have mild or severe GERD, your health care provider may also monitor how you respond to treatment. You may also have tests, including: ? A test to examine your stomach and esophagus with a small camera (endoscopy). ? A test that?measures the acidity level in your esophagus. ? A test that?measures how much pressure is on your esophagus. ? A barium swallow or modified barium swallow test to show the shape, size, and functioning of your esophagus. How is this treated? The goal of treatment is to help relieve your symptoms and to prevent complications. Treatment for this condition may vary depending on how severe your symptoms are. Your health care provider may recommend: ? Changes to your diet. ? Medicine. ? Surgery. Follow these instructions at home: Eating and drinking ? Follow a diet as recommended by your health care provider. This may involve avoiding foods and drinks such as: ? Coffee and tea (with or without caffeine). ? Drinks that contain?alcohol. ? Energy drinks and sports drinks. ? Carbonated drinks or sodas. ? Chocolate and cocoa. ? Peppermint and mint flavorings. ? Garlic and onions. ? Horseradish. ? Spicy and acidic foods, including peppers, chili powder, winkler powder, vinegar, hot sauces, and barbecue sauce. ? [place] fruit juices and citrus fruits, such as oranges, keren, and limes. ? Tomato-based foods, such as red sauce, chili, salsa, and pizza with red sauce. ? Fried and fatty foods, such as donuts, martiniquais fries, potato chips, and high-fat dressings. ? High-fat meats, such as hot dogs and fatty cuts of red and white meats, such as rib eye steak, sausage, ham, and cha. ? High-fat dairy items, such as whole milk, butter, and cream cheese. ? Eat small, frequent meals instead of large meals. ? Avoid drinking large amounts of liquid with your meals. ? Avoid eating meals during the 2?3 hours before bedtime. ? Avoid lying down right after you eat. ? Do not exercise right after you eat. Lifestyle ? Do not use any products that contain nicotine or tobacco, such as cigarettes, e-cigarettes, and chewing tobacco. If you need help quitting, ask your health care provider. ? Try to reduce your stress by using methods such as yoga or meditation. If you need help reducing stress, ask your health care provider. ? If you are overweight, reduce your weight to an amount that is healthy for you. Ask your health care provider for guidance about a safe weight loss goal. General instruct (more content not included)... [facility] Coding Summary.on 10-26-2021 Coding Summary. [id number] Gh0bWw+PG hlYWQ+OC3TFLIfA67dbWJxvS7QF2v YQR5UMYPUFYXLFJ8KQD4woVG2VVmq Y1JsopFt OuoujZTtXW79GGb2AHW2yBnbTVruu X2voVVcU8i6UvXhIF83nQ55TYlzJC ZvLhJ4PpPjsumhgJMe Y1mvWmHvqRIkKsh+PHRhYmxlIHdpZ CToHKepGNSmSeJiyGwtQC5gRg3gKA VyLWNvbGxhcHNlOiBj l0dzCOOdMGmfKS9rtIbsM9KiwDY7V NBlp1n4Xu69aYK+TRFiIQU7jDitIE gsa773GbUry2prEID4 qZAtCUqdWLP6L99ms3I5IQQuAZYkQ QX2oTJ2lY9mqHpjxuhuT4XkxBLhYi F9RBD8zZTrpR3taEao cjnftF7yOxm+X22TXZ2AQAPCJU9KE ln0G0RnHyzmaIR+QH96RQXtHP83hF WklCYwb0ousSq9KiWp MBXpPPQ2iHntOYaee4RmKRCrK66xn PIio3O1RABqrVerfRUuWdHhcWY4pB 0hRRfjyjbji5fqqqco Gzjgb3xrcb19uT69L98oBDylVVMoC UN4KOKmRAKncWwkvc0kyT9oXj0+ID ffm1ghq7kadLa9LpSj SPUcgjWntGcfLZU4l0IuPu81L6Kzj Qcdg6BrTty1nn96iIXtw2H8tXU5CQ hiXWQfvC3jJQoaSfC7 DYJqIdOhbN47pJOlJYakTr8doAnft DxhSC7pHAKblglxMFEkuA0uGLRiwU TxpGtsAD4lKPKwgnnh m443XsBuIUO0PGTpeKHmQ4IcwG7sS vVjYEJcUUCkH3YfvBKoBSpdV404GI snRbB0PXUsbhSpH0Ct QQNswRtkAyX0k4K9Rz8Pw9YvwkveD GM2FGctCOD1ZaQ6FwLxBlT5J8YgGi e1HQIzoJbjFS6uA8Jx DJWsmsjywdwqbMB2STWvZXZhbP80p XOkDLkyTs4nr5O8s244MLJcETRfnV 20Bu1lrFtiLAElbHSU hT6qbzroa3primenQmQbQXRpBDk7J Mr9FWWcqXwtYjOaOYV5NfF8TNX5pV PrqR4fgOyoxcwdwM8v Oyc+U31clV8sMOA1XOM2sidcHFApp eBdLT37CV69K8WjRiftaYGdoVI+PG RvcbXanPwqNK8cCeWa e3lhn7BmKFddB9LnIPGjLCtmRji7C DPuFWY7vWY5vP0dNXCnXUfag3L9xH B4P0RdiiJjid6uw7yl YBOfLTotG57ehOOsu6V8MKZeeXQ4J NHdvEqbHtQkhD85Gez+PGNvbGdyb3 GmBollu1yug5rmtQs3 XoLiPEPbyyCaqThkNFF2m2BzNa83I 29sIHdpZHRoPSIxNSUiIHZhbGlnbj 3ciO0tGt8+PGNvbCB3 kXS0tD6yHUEaNqE2YDmxW999TgFbo FRjMyaxm7glq0mniWc9NdHoHCOgru QxnPecXPM0w7WfYp95 Q35zIEspCYGiBIKrFNGhEGUduZjnr x2naF7yYh9+MB7ka2extl08qP31hJ I+GANrPCW3sOhxIKnp IGRjxL5pJLrbMcU3ZGHtIuXyqN29p RYcZGyrMq3trExfyElxBJ1cBTXovh zrp809YwPdq0grHLUr lURyDAtlPOY6V04mj4Z0RMQfAQXaL TT0aXZ7eN2qqLndrtkjsGEmrBzedq CjwXraJYryDRegC552 FFXfxMrtEsGofZztyoFyUmKiYVu6D 7XdSjb6IZColHjfTW8rqUMmKItnZn 5kxAvtvTdbJI3aMOHq fjwyt767EvNog2yxQAAibBMpTXxdX HA3H45fj3G2SEHwXOCxFVW5fRS4tU 1hbGlnbjogbGVmdDsg nnDbdUlyIVwyOThhI759TGIwkQhsN yUvdvYqUFRqaGW0IK46TD78rLOtk2 N6xDX4N6EvWNJptuev nvllxXH7JZSrNSGcqZ27Vh9keKwgU f7lGOHvIYP7BIAvoOVkK8XjqP7iUt JeFOErFZQfV4DjnNIl AWliP104IZnwRqA2QLBstuCsD0HwE JDasUhzUsL5g3N1Yp9SQ6C2DV39ZA 78yXFxb8L3tBM5W2Uv IZMleuxngnnzkZM7BDQgFBQrdO38T e0ntElbIw3bWFMbQUR8MSWkpOApH1 LmgJ5dXgDnPAQyIXBz K5EziUHhECdiB842FXxlXgR1QLWcr pTfQ5CcSOIusZaqXuH4l4L9Uk0JIW l3TL72SI65zGZlx6N6 jEI5B3StYERwvifgkyrurJQ3ESAcH EFziM43Yp2ryQyzGc7hKNGfDFM3CH PlsOYsX5RsxL3rSvNp ELFnJZJoL4MuxAQhAMczO116YBphS cY8QEAxueUlA3GvDZYhuItpQlD2z4 J0Xi4KROCqVJ24PDZ4 cIE4HH59NU22U1GfFvlgyWTeeMA+P HRhYmxlIHdpZHRoPScxMDAlJyBzdH jxUS7ePt1oZSVyWLFl iSwtcKYyVvNva5kqOZXnUKduZD3pa PhzD7WzvNC2YLBul7y2Mt62V69tE8 JvdXA+KSRvcIS2lNY0 uO0kIrUcYtW5KEfvQ726DxDdwISiT eavh4ypn6lpqWv8KkR4SNJkvoEpvZ rbCPG1a0ZuPj16Q60w YAwnDQFpUQWtSHKwMRPhyTcgmn2oc G9wIi8+UPLauWD4eHE2uG8bAhWmVv I1DHueV356GvTktEJc Momvm0dft1pehDz6JmFkSDIqqoKmt ZtqPOY1o7EkKj52H2DyuKtvl6SkGo c4ut85bDDfp5I8bGQ3 M7CrDOMmtahrqBYlpSqbTJ7yTGTmn mtiOBMtnA0kYTZzS9p6ReUtAwZ3CY svA7WujkK2XBEhlDVt QEpbQTB8P01ln6F8YTGsUQJnDUU9v FZ2tW8fbGwgkxnogOXtsFirwbAkvH nyBOevSTclG204CZEy wNgoRFTwnZ4bWKQwkBGmxUsyKE4xO TBpbjsnPkFDUkVFLCBKRVdFTEwgUj wvdGQ+SEJtVGN6uJeh FTxbAYNcoS6zVNRoX1x9BkJyCaB3Z SzsF3WhMAGvobscHd52bO2xXoEzEd W6HGvlY8FgilO6DVUn qIUgEEyqUMA0Z37jq2Y5VDVsNKJoX YG0aYP0dG3hoTxswlgsqMXijVdsnw NbmHqxXWzoELjnL052 WPRntUpoCjQmNlWjTjF3OMq4D2ZhK gb4SKOqmUhiEG9wdFHdZDuuRg8lxP zyiLuvTB4lFLNmlsdk URRrcK5mVXRooVJldLmzYT5lVCZsj nujc546AzOoCEW1WBZirXBhY7RmwN 9rBrEcKMKdRBYwL7Lt tAIfQZyyB939BCyoGlF0SCUdzfLaS 2JrFJHjjWbdLaG9u3U9Vi2jVSLDNM FyczwvdGQ+PHRkIHN0 rYzmFRnqNFBkbK6iINDpB2q5YhMqR aM0SXhpO9QxFSNcyegiBu72qY7tTb TgAbJ0CLsxW1KwrsR2 HTFibTJzOCbzSDP4S77jx9V6JHAqW HTlWFU5sRF1wH2crMpbiexpxDMtlB sgdmVydGljYWwtYWxp P852ZBFmzOrcMlGzlYSwLBvidQM+P GLzGQQ5uWhqGZqeDFZnqW1fBXIlX9 s2AgNhWgS2KFbqJ3Wi QDJsvunjMf41cT3jCcXkYbB8OUeqT 6ZchmM3NFHayESmHXfrIZW0T52oi3 V0DENvTNGhKXQ8hEY7 cY4apJqoxonxjAKqfKamcaXdfOgtY QnjOXtnN768DZFpcCmoQtWqFYQhUO 5jeTwvdGQ+PL29bw76 C9RsCuwwZeq1HKSpCNV6xSL0qI9gD WLtNTnnr4Y4bIS0Z6CihjWnqz5ny9 mmCGNgZZdnH80cvEUz z0K0VRKfxXL1QOOzgYkbZhUojH21Q yc+RAIlyXaxg4QhEodwm3ops2urfP a1FiLuAAChxgThvAvd LNY4z3CaOu28T61kTKjkFZJuOFCgZ OTjKHUkqItesw1nlG2qLp4+PGNvbC G7yKQ1cN6vWxBxHjG3 ZRqgW854TdLooFXkXkebd9xuz1ahv Wi1QyYhBBMxxcTvqJtsSWT7r8MnMp 77D0XbnLqpt3GyBzx0 dr86qZWde0B0oIJ1P5KwEGFsvznbw DLtpCbkMC2nILVgjmvbRDPgxK2eUQ YyV2v9AjTnMqH7KRxd T9GhwcR9VKYmkBNnFEAleIVAkZ6av yigm3ofprxoTmSyAEAwQKm9HEt9FK XngUxuZaIlAYN9TeW9 BUA2yLTfaH3fnCvshyakzK7jCqt+U Se8n9mcsQFbPK7mfFD9UH86GD87mX Mhi2K8aNI1K3SxMIZa fxljjboiiEZ2DNAkWOCehX38Uq8mq UnoEh5pZONcAEU6YUMkyAMpV9KbeB 9dZaOpYMPfWDFeS9Iu hOChNCgkE740ELuyZeW7SAQzluRwX 0CwNPZxrXkuJhX5j5V8Fn3FHM27ZX 43LV69iYDjm3M8dJH2 Y2GwEFXqmbiacousjQR2KHXeIEZtw F69Jd8reAdmWy1oPAAvBHG9JRBzoS VyN8HyuL7iRjDlBSKk KUHgH9DwdSWzQStdA921DCdfTeM7V FWxwvFcU9MeHWDulQxaJwR3q1B0Rf 0AIj91IK87LA23mVZl e8J1fKT6O4JeTCRvkimayvujjXQ2V UKjGKGpiF58Wa9elYfjFs1aGAYsVH L4FESrbBZhF9EyfH0m HkYfTBHzVPEmO5YzpCNvWVtbV104J EydIeI9ZWTjhaFgN2OgGBGaqVrkXo M1q0H8Cj3XGYhzjof6 C7LsPpwktNC+VT41UGBcSV47rOMou TXtg6erwKv5YsAiFVAgJWA4nFyjNJ uvs5AlGLMbY84veDEe c2U6 (more content not included)... [facility] Consent for Treatmenton Consent for Treatment [id number]:127 [facility] Discharge Instructionson Discharge Instructions [id number]:127 [facility] ED Clinical Summaryon 2021 ED Clinical Summary (Inserted Image. Gena ble to display) [address] [address] ED Clinical Summary Person Information Name: JENI JANE[place] Age: 25 Years : 1995 Sex: Female Language: Ukrainian PCP: Bella Wise MD Marital Status: Phone: [phone] Visit Id: Visit Reason: Allergic reaction - minor; Rash; ALLERGIC REACTION TO PEN. Speciality: Acuity: 4 Enc Type: Emergency Med Service: Emergency Arrival: 10/24/2021 11:55:48 Discharge: 10/24/2021 12:37:20 LOS: 000 00:42 Checkin: 10/24/2021 11:55:48 Checkout: 10/24/2021 12:37:20 Dispo Type: Home (Routine DC) EVENTS: Event Name Event Status Request Date/Time Start Date/Time Complete Date/Time Arrive Complete 10/24/2021 11:55:48 10/24/2021 11:55:48 10/24/2021 11:55:48 Document Home Meds Request 10/24/2021 11:55:48 Triage Complete 10/24/2021 11:55:48 10/24/2021 12:00:03 10/24/2021 12:00:03 No Visitors Request 10/24/2021 11:56:57 Bed Assign Complete 10/24/2021 11:57:29 10/24/2021 11:57:29 10/24/2021 11:57:29 Dr Exam Complete 10/24/2021 11:57:29 10/24/2021 11:59:13 10/24/2021 11:59:13 RN Exam Complete 10/24/2021 11:57:29 10/24/2021 12:01:12 10/24/2021 12:01:12 Registration Complete 10/24/2021 11:59:13 10/24/2021 11:59:19 10/24/2021 11:59:19 Reg Complete Request 10/24/2021 11:59:19 Reg Bed Request Complete 10/24/2021 11:59:19 10/24/2021 11:59:19 10/24/2021 11:59:19 Dr Exam Complete 10/24/2021 12:04:02 10/24/2021 12:04:02 10/24/2021 12:04:02 Registration Request 10/24/2021 12:04:02 Discharge Complete 10/24/2021 12:34:46 10/24/2021 12:37:25 10/24/2021 12:37:25 Transfer Complete 10/24/2021 12:37:25 10/24/2021 12:37:25 10/24/2021 12:37:25 ADDRESS: [address] [place] [phone] PHYS DOC NOTES: MEDICAL INFORMATION: Prescriptions Given: New Medications [facility] 1985, [address] [place], [place] [id number], [phone] clindamycin (clindamycin 300 mg oral cap) 1 Capsules By Mouth 2 times a day. Refills: 0. Medications to Continue with No Changes Other Medications albuterol (Albuterol (Eqv-ProAir HFA) 90 mcg/inh inhalation aerosol) 2 Puffs Inhalation every 4 hours as needed Cough and Congestion. Refills: 0. famotidine (Pepcid 20 mg Tab) 1 Tablets By Mouth every day. Refills: 0. multivitamin, ( Multivitamins) 1 Tablets By Mouth every day. naproxen (Naprosyn 500 mg Tab) 1 Tablets By Mouth 2 times a day as needed for pain. Refills: 0. naproxen (naproxen 500 mg Tab) 1 Tablets By Mouth 2 times a day. with food. Refills: 0. ondansetron (Zofran 4 mg Tab) 1 Tablets By Mouth every 8 hours as needed Nausea/Vomiting. Refills: 0. ondansetron (Zofran ODT 4 mg Tab-Dis) 1 Tablets By Mouth every 6 hours. Refills: 0. PATIENT EDUCATION INFORMATION: Instructions: Drug Allergy, Mdev-dw-Alpv Follow up: With: Address: When: Dental: [facility] [phone] In 3 days 10/27/2021 With: Address: When: Dental: [employer] [phone] In 3 days 10/27/2021 With: Address: When: Dental: [facility] [phone] In 3 days 10/27/2021 With: Address: When: [facility] Dept: [phone] In 3 days 10/27/2021 With: Address: When: [place] [address] Business (1) In 3 days DIAGNOSIS: 1:Adverse drug reaction [facility] ED Note-Physicianon 10-25-19 ED Note-Physician Basic Information Time Seen: Helen Chance PA-C 10/24/2021 11:59 Chief Complaint pt reports rash after taking pcn. denies taking any benadryl History of Present Illness This patient presents emergency department chief complaint of concern for allergy to penicillin. The patient states she has been on penicillin a few days. The day after she started it, she had a lot of GI complaints. She came here to the emergency department and they gave her medications for that. She states now over the last 24 hours she has developed a rash over her entire body that is itching. The patient is on antibiotics due to a dental infection. Review of Systems Constitutional: Denies weight loss, fevers, chills, sweats, malaise Eyes: Denies visual changes, eye pain, double vision, scotomas, floaters ENT: Denies runny nose, epistaxis, sinus pain, ear pain, ringing in ears, tooth ache, sore throat, pain with swallowing Cardiovascular: Denies chest pain, shortness of breath, orthopnea, edema, palpitations, loss of consciousness, claudication Respiratory: Denies cough, sputum production, wheezing, hemoptysis, shortness of breath, dyspnea on exertion Gastrointestinal: Denies abdominal pain, unintentional weight loss, difficulty swallowing, indigestion, bloating, cramping, loss of appetite, nausea, vomiting, diarrhea, constipation, hematochezia, melena Genitourinary: Denies any incontinence of urine, dysuria, hematuria, nocturia, polyuria, hesitancy, frequency, urgency, burning Musculoskeletal: Denies joint pain, morning stiffness, joint swelling, decreased range of motion, crepitus Integumentary: Denies any pruritus, lesions, wounds, petechiae. + Itchy rash on arms, legs, anterior and posterior thorax Neurologic: Denies any changes in sight, smell, hearing, taste, seizures, headache, paresthesia, numbness, weakness, balance disturbance Psychiatric denies any depression, change in sleep patterns, anxiety, difficulty concentrating, paranoia, anhedonia, lack of energy, federico Hematologic/lymphatic: Denies any purpura, petechiae, excessive bleeding, bruising Physical Exam Vitals & Measurements T: 36.7 ?C(Oral) HR: 104(Peripheral) RR: 18 BP: 134/82 SpO2: 100% HT: 162.0 cm HT: 162 cm WT: 80.0 kg WT: 80 kg BMI: 30.48 Vital Signs reviewed and noted. General: Alert, no acute distress, patient resting comfortably Skin: warm, intact, no pallor noted . + Urticaria noted on the extremities, anterior and posterior thorax Head: Normocephalic, atraumatic Eye: Normal conjunctiva Cardiac: Normal peripheral perfusion Respiratory: No acute distress Musculoskeletal: No deformity, full ROM. Neurological: alert and oriented, normal sensory and motor observed. Psychiatric: Cooperative Medical Decision Making Acute allergic reaction secondary to penicillin Assessment/Plan 1. Adverse drug reaction (T50.905A: Adverse effect of unspecified drugs, medicaments and biological substances, initial encounter) Orders: clindamycin, 300 mg = 1 cap(s), Oral, BID, # 20 cap(s), Refills(s) 0, Pharmacy: [facility] 1984, 162, cm, 10/24/21 12:00:00 EDT, Height/Length Dosing, 80, kg, 10/24/21 12:00:00 EDT, Weight Dosing Patient was interviewed and examined. I discussed the discharge diagnosis, plan of care, and for her to discontinue the penicillin and discard the remainder of the prescription. I did discuss with the patient that we will replace that with clindamycin. The patient states that she can control her symptoms of the reaction with the use of calamine lotion and Benadryl. Patient will be discharged home in stable condition. She is to follow-up with a dentist and primary care provider. She is to return to the emergency department for any further problems or concerns. Disposition Plan Patient Discharge Condition Stable Discharge Disposition Home Discharge Prescription List Prescriptions clindamycin 300 mg oral cap, 300 mg= 1 cap(s), Oral, BID Follow-up With When Contact Information Dental: [facility] [phone] In 3 days 10/27/2021 EDT Additional Instructions: Dental: [facility] [phone] In 3 days 10/27/2021 EDT Additional Instructions: Dental: [facility] [phone] In 3 days 10/27/2021 EDT [phone] 10/27/2021 EDT Additional Instructions: Bella Wise In 3 days [address] [place] [id number] [place] (1) Additional Instructions: Patient Education Drug Allergy, Brko-cn-Isio Problem List/Past Medical History Ongoing Acute low back pain BMI 31.0-31.9,adult Obesity due to excess calories Smoker Tobacco user Historical Medications Inpatient No active inpatient medications Home Albuterol (Eqv-ProAir HFA) 90 mcg/inh inhalation aerosol, 2 puff(s), Inhalation, q4hr, PRN clindamycin 300 mg oral cap, 300 mg= 1 cap(s), Oral, BID Naprosyn 500 mg Tab, 500 mg= 1 tab(s), Oral, BID, PRN napro (more content not included)... [facility] Comment on above: Result Comment: Elec tronically Signed By: Helen Chance PA-C\.br\Date and Time Signed: 10/24/21 16:06 EDT\.br\Electronically Co-Signed By: Richard Rosas DO\.br\Date and Time Co-Signed: 10/24/21 21:41 EDT ED Patient Education Noteon 10-24-2021 ED Patient Education Note Pharmacology Drug Allergy A drug allergy is when your body reacts in a bad way to a medicine. The reaction may be mild or very bad. In some cases, it can be life-threatening. If you have an allergic reaction, get help right away. You should get help even if the reaction seems mild. What are the causes? This condition is caused by a reaction in your body's defense system (immune system). The system sees a medicine as being harmful when it is not. What are the signs or symptoms? Symptoms of a mild reaction ? A stuffy nose (nasal congestion). ? Tingling in your mouth. ? An itchy, red rash. Symptoms of a very bad reaction ? Swelling of your eyes, lips, face, or tongue. ? Swelling of the back of your mouth and your throat. ? Breathing loudly (wheezing). ? A hoarse voice. ? Itchy, red, swollen areas of skin (hives). ? Feeling dizzy or light-headed. ? Passing out (fainting). ? Feeling worried or nervous (anxiety). ? Feeling mixed up (confused). ? Pain in your belly (abdomen). ? Trouble with breathing, talking, or swallowing. ? A tight feeling in your chest. ? Fast or uneven heartbeats (palpitations). ? Throwing up (vomiting). ? Watery poop (diarrhea). How is this treated? There is no cure for allergies. An allergic reaction can be treated with: ? Medicines to help your symptoms. ? Medicines that you breathe into your lungs (respiratory inhalers). ? An allergy shot (epinephrine injection). For a very bad reaction, you may need to stay in the hospital. Your doctor may teach you how to use an allergy kit (anaphylaxis kit) and how to give yourself an allergy shot. You can give yourself an allergy shot with what is called an auto-injector pen. Follow these instructions at home: If you have a very bad allergy: ? Always keep an auto-injector pen or your allergy kit with you. These could save your life. Use them as told by your doctor. ? Make sure that you, the people who live with you, and your employer know: ? How to use your allergy kit. ? How to use an auto-injector pen to give you an allergy shot. ? If you used your auto-injector pen: ? Get more medicine for it right away. This is important in case you have another reaction. ? Get help right away. ? Wear a medical alert bracelet or necklace that says you have an allergy, if your doctor tells you to do this. General instructions ? Avoid medicines that you are allergic to. ? Take gdkk-oii-widxsqz and prescription medicines only as told by your doctor. ? Do not drive until your doctor says it is safe. ? If you have itchy, red, swollen areas of skin or a rash: ? Use an vjjk-aud-msxxnps medicine (antihistamine) as told by your doctor. ? Put cold, wet cloths (cold compresses) on your skin. ? Take baths or showers in cool water. Avoid hot water. ? If you had tests done, it is up to you to get your test results. Ask your doctor when your results will be ready. ? Tell any doctors who care for you that you have a drug allergy. ? Keep all follow-up visits as told by your doctor. This is important. Contact a doctor if: ? You think that you are having a mild allergic reaction. ? You have symptoms that last more than 2 days after your reaction. ? Your symptoms get worse. ? You get new symptoms. Get help right away if: ? You had to use your auto-injector pen. You must go to the emergency room, even if the medicine seems to be working. ? You have symptoms of a very bad allergic reaction. These symptoms may be an emergency. Do not wait to see if the symptoms will go away. Use your auto-injector pen or allergy kit as you have been told. Get medical help right away. Call your local emergency services (911 in the [place] Do not drive yourself to the hospital. Summary ? A drug allergy is when your body reacts in a bad way to a medicine. ? Take medicines only as told by your doctor. ? Tell any doctors who care for you that you have a drug allergy. ? Always keep an auto-injector pen or your allergy kit with you if you have a very bad allergy. This information is not intended to replace advice given to you by your health care provider. Make sure you discuss any questions you have with your health care provider. Document Released: 03/16/2005 Document Revised: 08/22/2018 Document Reviewed: 08/22/2018 Elsevier Patient Education ? 2019 [id number] [facility] ED Patient Summaryon 022 ED Patient Summary (Inserted Image. Gena ble to display) [place] [id number] Patient Discharge Instructions Person Information Name: JENI JANE Age: 25 Years Arrival Date: 10/24/2021 11:55:48 Discharge Diagnosis: 1:Adverse drug reaction Primary Care Physician: Bella Wise MD Provider Information Primary Provider: Richard Rosas DO Advanced Equipment Service Engineer:None The exam and treatment you received in the Emergency Department were for an urgent problem and are not intended as complete care. It is important that you follow up with a doctor, nurse practitioner, or physician?s baking assistant for ongoing care. If your symptoms become worse or you do not improve as expected and you are unable to reach your usual health care provider, you should return to the Emergency Department. We are available 24 hours a day. JENI JANE has been given the following list of patient education materials, prescriptions and follow-up instructions: Follow-up Instructions: With: Address: When: Dental: [facility] [phone] In 3 days 10/27/2021 With: Address: [facility]: [facility] [phone] In 3 days 10/27/2021 With: Address: When: Dental: [facility] [phone] In 3 days 10/27/2021 With: Address: When: [facility] Dept: [phone] In 3 days 10/27/2021 With: Address: When: Bella Wise [address] [place] [id number] Business (1) In 3 days In the event that this physician does not participate in your insurance network, please consult with your insurance company to find a nearby participating provider. Patient Education Materials: Drug Allergy, [id number] A MESSAGE TO ALL PATIENTS REGARDING OPIOIDS PRESCRIPTION OPIOIDS: WHAT YOU NEED TO KNOW Prescription opioids can be used to help relieve [id number] pain and are often prescribed following a surgery or injury, or for certain health conditions. These medications can be an important part of the treatment but also come with serious risks. It is important to work with your healthcare provider to make sure you are getting the safest, most effective care. WHAT ARE THE RISKS AND SIDE EFFECTS OF OPIOID USE? Prescription opioids carry serious risks of addiction and overdose, especially with prolonged use. An opioid overdose, often marked by slowed breathing, can cause sudden . The use of prescription opioids can have a number of side effects as well, even when taken as directed: ? Tolerance?meaning you might need to take more of the medication for the same pain relief ? Physical dependence?meaning you have symptoms of withdrawal when a medication is stopped ? Increased sensitivity to pain ? Constipation ? Nausea, vomiting, and dry mouth ? Sleepiness and dizziness ? Confusion ? Depression ? Low levels of testosterone that can result in lower sex drive, energy, and strength ? Itching and sweating RISKS ARE GREATER WITH: ? History of drug misuse, substance use disorder, or overdose ? Mental health conditions (such as depression or anxiety) ? Sleep apnea ? Older age (65 years and older) ? Avoid alcohol while taking prescription opioids. Also, unless specifically advised by your health care provider, medications to avoid include: ? Benzodiazepines (such as Xanax or Valium) ? Muscle relaxants (such as Soma or Flexeril) ? Hypnotics (such as Ambien or Lunesta) ? Other prescription opioids KNOW YOUR OPTIONS Talk to your health care provider about ways to manage your pain that don?t involve prescription opioids. Some of these options may actually work better and have fewer risks and side effects. Options may include: ? Pain relievers such as acetaminophen, ibuprofen, and naproxen ? Some medication that are also used for depression or seizures ? Physical therapy and exercise ? Cognitive behavioral therapy, a psychological, goal-directed approach, in which patients learn how to modify physical, behavioral, and emotional triggers of pain and stress. IF YOU ARE PRESCRIBED OPIOIDS FOR PAIN: ? Never take opioids in greater amounts or more often than prescribed. ? Follow up with your primary health care provider. o Work together to create a plan on how to manage your pain. o Talk about ways to help manage your pain that don?t involve prescription opioids. o Talk about any and all concerns and side effects. ? Help prevent misuse and abuse o Never sell or share prescription opioids. o Never use another person?s prescription opioids. ? Store prescription opioids in a secure place and out of reach of others (this may include visitors, children, friends, and family). ? Safely dispose of unused prescription opioids: Find your community drug take-back program or your pharmacy mail-back program, or flush them down the toilet, following guidance from the Food and Drug Administration (w (more content not included)... Normal [facility] Auto Diffon 10-22-2021 Basophils/100 WBC (Bld) 0.6 % Normal 0.0-2.0 [facility] Comment on above: Order Comment: Order Added by Discern Expert. Performed By: #### 2 616267, 4467576, 7208425, 39556683, 2131699, 3949520 ####[address] [place] [address] Basophils/Leukocyte s Auto (Bld) [Pure # fraction] 0.1 E9/L Normal 0.0-0.2 [facility] Comment on above: Order Comment: Order Added by Discern Expert. Performed By: #### 2 579452, 4349613, 2106837, 66762543, 9275776, 3929404 ####[address] [address] Eosinophils/100 WBC (Bld) 1.2 % Normal 0.0-8.0 [facility] Comment on above: Order Comment: Order Added by Discern Expert. Performed By: #### 2 728913, 1793070, 9917854, 76209066, 4315790, 5625201 ####[address] [address] Eosinophils/Leukocy shady Auto (Bld) [Pure # fraction] 0.1 E9/L Normal 0.0-0.5 [facility] Comment on above: Order Comment: Order Added by Discern Expert. Performed By: #### 2 707556, 6935080, 7685126, 78639656, 9336905, 0892896 ####[address] [place] [address] Lymphocytes/100 WBC (Bld) 28.7 % Normal 14.0-50.0 [facility] Comment on above: Order Comment: Order Added by Discern Expert. Performed By: #### 2 575627, 0740674, 5021482, 62814321, 0314131, 7487624 ####[address] [address] Lymphocytes/Leukocy shady Auto (Bld) [Pure # fraction] 3.4 E9/L Normal 1.0-4.0 [facility] Comment on above: Order Comment: Order Added by Discern Expert. Performed By: #### 2 595404, 9825592, 7195798, 03512639, 2942289, 1721827 ####[facility] [address] [place] [address] Monocytes/100 WBC (Bld) 7.9 % Normal 4.0-14.0 [facility] Comment on above: Order Comment: Order Added by Discern Expert. Performed By: #### 2 225847, 1967553, 6234793, 69496564, 6212140, 7954470 ####[facility] [address] [place] [address] Monocytes/Leukocyte s Auto (Bld) [Pure # fraction] 0.9 E9/L Normal 0.2-1.0 [facility] Comment on above: Order Comment: Order Added by Fatoumata Expert. Performed By: #### 2 911765, 8251697, 1781578, 56996353, 1252061, 6633787 ####[facility] [address] [place] [address] Neutrophils/100 WBC (Bld) 61.6 % Normal 36.0-75.0 [facility] Comment on above: Order Comment: Order Added by Discern Expert. Performed By: #### 2 720715, 7240175, 8767018, 59226653, 5682887, 4574262 ####[facility] [address] [place] [address] Neutrophils/Leukocy shady Auto (Bld) [Pure # fraction] 7.3 E9/L Normal 2.0-7.5 [facility] Comment on above: Order Comment: Order Added by Fatoumata Expert. Performed By: #### 2 652542, 7627440, 3994318, 24146416, 8933438, 2593419 ####[facility] [address] [place] [address] BMPon 10-22-2021 Creatinine [Mass/Vol] 0.5 mg/dL Normal 0.5-1.3 [facility] Comment on above: Performed By: #### 2 385251, 0221785, 7307365, 07764151, 1523992, 4831759 ####[facility] [address] [place] [address] Urea nitrogen [Mass/Vol] 18 mg/dL Normal 5-21 [facility] Comment on above: Performed By: #### 2 399557, 4528037, 8261037, 66239097, 8304763, 2982062 ####[facility] [address] [place] [address] Urea nitrogen/Creatinine [Mass ratio] 36 No Units High 10-20 [facility] Comment on above: Performed By: #### 2 888958, 9595650, 8723494, 05682987, 6080529, 8009130 ####[facility] [address] [place] [address] Anion gap [Moles/Vol] 9 mmol/L Normal 6-16 [facility] Comment on above: Performed By: #### 2 264313, 8371122, 5166940, 98533906, 0020061, 4892532 ####[facility] [address] [place] [address] Calcium [Mass/Vol] 9.9 mg/dL Normal 8.9-11.1 [facility] Comment on above: Performed By: #### 2 509755, 1239648, 8868107, 18398075, 1752231, 1915170 ####[facility] [address] [place] [address] Chloride [Moles/Vol] 107 mmol/L Normal 101-111 [facility] Comment on above: Performed By: #### 2 411392, 2001101, 0171278, 76717013, 7526076, 3642080 ####[facility] [address] [place] [address] CO2 [Moles/Vol] 20 mmol/L Low 21-31 [facility] Comment on above: Performed By: #### 2 350150, 9735455, 5325959, 90259357, 6687526, 6434884 ####[facility] [address] [place] [address] Glucose [Mass/Vol] 92 mg/dL Normal 55-199 [facility] Comment on above: Result Comment: If t his glucose result represents a fasting glucose, interpretation should refer to the following reference range: 55-99 mg/dL Performed By: #### 2 426715, 5107546, 6840197, 94217742, 9743429, 6283899 ####[facility] [address] [place] [address] Potassium [Moles/Vol] 3.9 mmol/L Normal 3.5-5.3 [facility] Comment on above: Performed By: #### 2 283288, 2901854, 7602767, 06478824, 9002682, 9993878 ####[facility] [address] [place] [address] Sodium [Moles/Vol] 132 mmol/L Low 135-145 [facility] Comment on above: Performed By: #### 2 474955, 5734917, 1763519, 76955337, 6565514, 0711365 ####[facility] [address] [place] [address] BhCG Quanton 10-22-2021 HCG.beta subunit Qn m[IU]/mL Normal 1-3 [facility] Comment on above: Result Comment: GEST ATIONAL AGE HCG RANGE (mIU/mL) NON- <1-3 0.2-1 WEEKS 5-50 1-2 WEEKS 50-500 2-3 WEEKS 100-5,000 3-4 WEEKS 500-10,000 4-5 WEEKS 1,000-50,000 5-6 WEEKS 10,000-100,000 6-8 WEEKS 15,000-200,000 8-12 WEEKS 10,000-100,000 Performed By: #### 2 304365 ####[facility] [address] [place] [address] CBC w/ Auto Diffon Erythrocyte distribution width (RBC) [Ratio] 13.5 % Normal 10.9-14.2 [facility] Comment on above: Performed By: #### 2 585672, 7667348, 9791270, 44609311, 5701699, 6970744 ####[address] [place] [address] Hematocrit (Bld) [Volume fraction] 39.3 % Normal 34.0-46.0 [facility] Comment on above: Performed By: #### 2 712822, 3292242, 8905439, 52516743, 7536506, 4987116 ####[address] [place] [address] Hemoglobin (Bld) [Mass/Vol] 13.3 g/dL Normal 12.0-16.0 [facility] Comment on above: Performed By: #### 2 237620, 2494212, 0542285, 56140040, 8491785, 3790558 ####[address] [address] MCH (RBC) [Entitic mass] 29.2 pg Normal 27.0-34.0 [facility] Comment on above: Performed By: #### 2 901804, 0184234, 7782102, 43946071, 6944732, 4644500 ####[address] [address] MCHC (RBC) [Mass/Vol] 33.7 g/dL Normal 31.4-36.0 [facility] Comment on above: Performed By: #### 2 281256, 6946793, 4490336, 33870020, 7226338, 7818352 ####[address] [address] MCV (RBC) [Entitic vol] 86.5 fL Normal 80.0-100.0 [facility] Comment on above: Performed By: #### 2 325866, 8310308, 9864480, 30239833, 6888726, 7637623 ####[address] [place] [address] Platelet mean volume (Bld) [Entitic vol] 9.3 fL Normal 6.4-10.8 [facility] Comment on above: Performed By: #### 2 475111, 3514919, 9386967, 37216152, 1969143, 9129673 ####[address] [address] Platelets (Bld) [#/Vol] 280.0 E9/L Normal 150.0-500.0 [facility] Comment on above: Performed By: #### 2 403498, 8104052, 5929216, 19780767, 5723374, 8406625 ####[address] [address] RBC (Bld) [#/Vol] 4.5 E12/L Normal 4.3-5.9 [facility] Comment on above: Performed By: #### 2 661236, 6283158, 5630370, 27797634, 3176867, 8343347 ####[address] [address] WBC corrected for nucl RBC Auto (Bld) [#/Vol] 11.8 E9/L High 4.0-11.0 [facility] Comment on above: Performed By: #### 2 186792, 9174393, 5924391, 94083068, 6340593, 0864875 ####[address] [address] Coding Summary.on 10-22-2021 Coding Summary. CD:[id number] Gh0bWw+PG hlYWQ+PL5EFUNjR64kvVOqvA8FA1e ISJ8JLNKTTEGLGL8SYG3doOF1ZYhv J2StumTm VdecmHIjSX86SGa9LOQ6nKceQXcec L7sgUCiD8m3CyUuRO70nH66BZbrOI IkCtM9OrZubplmdKYp N6hbReTeqOLlFbt+PHRhYmxlIHdpZ XCeZZibBYVdTnTrfWiyNG1gDv2pJI VyLWNvbGxhcHNlOiBj a0meWHXgFAshXJ6goFbmB1EhpHR4R GDls0m3Rf38oNM+CBYvXBB3qVupCY kvu617RmSnl2egFVG9 uABrLGzzGAF5K94cr9K8EOTtFMSdI KL1kUH7rY0zqXmdhhzuZ8VuzNIhTv O1BTV5fOEhrH5tkClg xykxfV2aDlc+E70BDO2XPEGTJW3DM pt2A4WvKlhloSG+BI35ZJGqJF41dA EavGUrc3aagNa7HqLw CWSdAVS7xMpnXSjxi3OdDOCzR57sw OWmu5W6CXYznIqhgTZhZoYiaYS9fV 8hHVfasvblz1mmjxwx Ffymk5rjel35dN04T05cZKohDIGsD LP7OBHiVQLofMzzpy5phL3pKc0+ID wks0knf5sgeFz9AeEr SLMfmlIioIabTOJ2d4XgGx15L7Ute Snkp3EkNiu3qq73uVUjc2B7sLT6TG jyJOEwmG1xKGujEhM4 NMRqSmImoA44iJBcLZdlLp2uqJvyu WdlAX6sTJSyrlvkKHYksE0gWHMgdI QhySqxGP8xXBApewfw d389ItJuVAP0OELfzLYoV6CroD4bL pAsXUQeOQPmF9HusZAsAKqwH674AW rrLsI9DWGahsGsB7Rm YLDbgYgsAzN4g4A1Xq3Mu1BpnrapE KL1OUioLWM1GfNfMmZuUxH7I1TtEl o9LYZywRehFD6fK4Yp TEMuwfciftkfmRB1MJXoVYGifN65f KWnEBuvZt8eg4J2g824MUPgPBItnE 74Nl1psYlnTJVbbNAF fS2cglcra8huowbiJzGoNVCtHWq3F Ly2MAYakMweUvCeIND5ErM5NOI4hL CpjG4ebEypqbpfdQ8j Oyc+H30lnK5tZHG6DDI6qjulEMPyw nZiCE18EM46D8JzGlycpJXcwTW+PG GsjmUngRrcMO0mCaLq d9ikm0ZaCKvsN7OlXMCnXEjlLkc7J NXdURL6vIB8mB8sQJShOPcds9N6xO G0V9KqoyTows0ja0bg RHCvOXlfW30qeOAih4T0ODMabHU1P UThpXjhVoPecT97Dre+PGNvbGdyb3 DeOgvxd4zsu6urrSf5 IuGcMDDrznSxzMdvCPS5l5JiGn08F 29sIHdpZHRoPSIxNSUiIHZhbGlnbj 7otT1kQa3+PGNvbCB3 hSU8oG7nTFWaEyD0CPuhV179UoUcb CHvCzovf0qjh7hmmAy9YaEnFTToxi NjtIsqEZA5r5TlWc46 B37pHBhbYJLgKCEvUDNmGSZiiYjoc u3tnU1pBc3+GU7wh3scck81jR42bR I+CAMrOAX3iVdcGJiu HSUdgZ7cFLevFgC8ASBcNbPstE35t AXzZHfgBf5pvRdxtCnqJQ6jVIUfiu stc903UbRxy0raNUVa gHOeWWoaVBO2F42qq4H0IGQvTPRhL RT7xOF5lO6pbPuwrsshhZCdaJbveb IitEwkJYxaQQrhI088 TSVjjDtvOqRsyZoxdhAiZvZvXKm7L 9HfKat3CEEegXtmBJ6pvGOqHUtxSs 1wgZhbmLjtMY4kNAHg idylb954OaMja1wxMRUpcGRlLAosY DB2T83gj0O0DWWdJVDaTWE7uGM4bL 1hbGlnbjogbGVmdDsg peDooNuxWGrfDNmmM851ZACsmAycA uFgmoUgBICwpFE6IO98OV09cTOnx5 S5dJY4S4IuOAAzeusg dfnljPN4OPFqMVRztA54Mr5siKxvV u5tPNNwZWL9ZERwrRXqF5FpoY7cLf UxHZJhHVKmB1MvtTKd CZzcZ582UEdaTxD1WUKrvgRdD1ZcP WFdaQxuTbR0i6P5Tb1ZG7P0CE92FK 71nGMoq7Q7aHP9X0Mr RNLkrgsjpyhwxUE1SCEfFYIsdA87R i9yaUzcHk3aIQMmWJT0AMFjpSZoG9 LufY4tAtHaAHMyQYBe S6VufFCsGJssX710JIuvSoX1ZSUll yInM0FvGSOxkGzvYrH1t9O4Lk1ONH d9WP92CM28qUGbf5D0 jIP1O0GzMZLjvpibslxqaMF8KGIiX XUccH73Or0vlXldIf9jWTFtKKY4WD IikVQeK1DeeN9wEqFu XVMuDXWbW7RixUJyHIfwW496GCkeF jS6RPDsgnHvN4AaZJSmmJlmSmA2r7 Y9Kn3UVODbHS88HVQ5 dKT5RB07LX57R9IcMetayZKhuMU+P HRhYmxlIHdpZHRoPScxMDAlJyBzdH dlHA4hCw2yZDXlYJWn xEldtVQbFlHey2sfBWVxFHkcIZ0vh HveD7JvqBH7SMMim4b4Gi94N70jL6 JvdXA+BTYbgJK3cSM0 iY8jQgGiUcJ9MCbcE506QkTfyVRsX wvan2eeq4gyaNh8GtD6PSJuvdMpzA voNHK8l9PsCp06D81u FKunDYYsVIHsUNXpHYJqcLlqha4ux G9wIi8+LNOmtXC4mDA8kN9sUgJwKf S3UGfzD044BnJcpNBg Hwwhd2baz7cnxXp4NpUwPCDeatXyt ZwrKZR4e6IpYk28K8SxdZpnf0AeAi f9qf36vEYya0Z2jXF2 Z1JoMPVpstfwvQYpzZdgWF1tUXAfl cqjKASilS0xWGDrD4v9IiKzFcP4YW peZ4BelnR8UGGhhFVk VCkbNCX5J05ag1G5IQJyPLMtIBC4r CW6wB5ocVsvkjoxqEKihGheooGecR xyETrdJZzhU070OHZd dRqnYJBikZ9bODKtcHPoiEehTO0fW TBpbjsnPkFDUkVFLCBKRVdFTEwgUj wvdGQ+ULPrXZB4gYba KLdiBMJzfE4gAXRlX5b5LeOkWlK8M QuwD1TeVQGevsvqBe24nX4bTgMkAk V7NYlxT5TtmfL2GKNd qIWrVHlyKEY6N48rq4F5EOEeKWSaI YE5vNK2tO4cqQovdwgeoQKslMvdpw KsnVlfLXegNAjoK841 DFPjqTojBuIgMiQsWuT7GFf1D9WkI vc9NGFybSynTK9jgPJnOObrDc7czM agiWjqPW4pXZRmiqto VSCdzW3iXQWlfEVgzUoaBZ4qMOXco aqyg158GnOhWNG8SIVmuTTbW4FtcJ 1zKcTjEWNqZRDrO6Xc yPMxKUfpE072BDgeShU3LJQortNzT 6HmJKNjyXcpSrK4z6Z3Xg9mOXENBI FyczwvdGQ+PHRkIHN0 qNfxJMsaTOMlvG8kTWQyF4b9IrWtC rZ7VGtyI2VkDDZsxtakVi55qG0dSk UnYmX1XZlfA3CvvzV5 BEGliQWuSWiyEOS8W70kl9D1RJVjQ KGqBHH0yDG9cN0wwUgbuydrlEOypS sgdmVydGljYWwtYWxp K381JXOtpZvjIkIvjSRcPDokpLL+P IIaWIK5iGfySEqaYULisG1cKQOjS1 e2MmPbWuV5BUkhV3Tu STTyqfgqZv66zY9jSrMdRiG8JQdjB 1CgjtK0OZSryZFwIAneHTF2S47bx0 S9KQKkIVSxQBP0cQD1 aQ1yxMmdozzfyDMsuOhuxhNreLpmR ZnmTMweM874XIBysAwaPqLaUVCyMM 5jeTwvdGQ+GD28hi20 I7ZkOdhbIpw3HVGiDNK9xVV8fR1bR ZBzWIpkw0E2rHK8B8LqlmRlfw2mu9 owGQQdMPmkU60nsRCb u9J1MAVsjYT2MGMpaZabKrMftR79S yc+QNZekGbjs7KwFiefa5qlo1tatK h8PqZlOOEncxPjiGro KRP3q5HeKe08G42sYLeiIEDsMKDoT KBkNPYlhAbmba1aiG6qRc4+PGNvbC D1eSJ9fJ4yKnBjHtT0 JEopO146XyEqyXLkVvgug0jwu5xxl Mu9YcSaOGFrqlFjhPajSBU1j9UbWg 04C5ZikBkju4WmVri6 vy24xGIrm1P3eEY3Z0IsLMGukyvfq PMikSyqML9jIEHwzpwrTBHwqP5bYV KeD4y5KoQjKvZ1CYmy M9MypwO4QJEwfLCbCTYznRBGoF9aw pamp8mllcaePyJyKFJgCUg6IOr6OJ SneRpvIoFhICX3GgL5 KKU7wHLslA4gxCslpggopD0eTog+U Gv4f6ikvCQtUF4zmIB6BI22ON62wN Czy1J7sOF1E8HfODFh tihdywcwpBU6IFZpDMIupW29Gv7ae FtpSx1qFBPjLKG6RSHptVOcM8ReqO 6vSeXeKRWhPEWgA2Pe uPEmJFkfO153NIcaFwO9BTJowlZfZ 8IsZOUutYgtUkD7h7S9Fv3JRL41PP 42OC30sFMuo7I3bLM3 P4NhVWRguhsixydvvOS0ENAtIBCfw D64Zx5syNliMw5cBSKtPJE6EKJzlZ GbB5ApsV1kVfOfFBQc NWLtS8NacWLwZUzuT942WLqiTtE1C BXuflPrS3DqPTCefXkkPrE3j2I6Xg 6XKk50JA50RU02gHQy o7H4tXF8L7AxYTTvfxydeghqvIG0I VAbMZAnmH72Ln2vnIvlCv5kKRHmPT V2IRYtqQVdU1AlhZ5o SzSyHSCrVDYqB3GjbDTyIFouS714W QefIaV0RDKpsqNbN8YeISKvmKscNb V4g2G4Sf2ONBwgupz0 T9ReEvvxmQP+KP25ONLtMW94mMAxb FWmp7leuFq3QtXgLASzKDB8vCueCV qkm0OeTFRgO45yfSEw c2U6 (more content not included)... Normal [facility] Discharge Instructionson Discharge Instructions [id number] Normal [facility] ED Clinical Summaryon 2021 ED Clinical Summary (Inserted Image. Gena ble to display) [address] [address] ED Clinical Summary Person Information Name: JENI JANE/[place] Age: 25 Years : 1995 Sex: Female Language: Ukrainian PCP: Vania SIEGEL MD Marital Status: Phone: [phone] Visit Id: Visit Reason: Vomiting; Nausea; Abdominal pain; N/ABD PAIN W/ HEARTBURN Speciality: Acuity: 3 Enc Type: Emergency Med Service: Emergency Arrival: 10/21/2021 21:49:41 Discharge: 10/21/2021 23:55:10 LOS: 000 02:06 Checkin: 10/21/2021 21:49:41 Checkout: 10/21/2021 23:55:10 Dispo Type: Home (Routine DC) EVENTS: Event Name Event Status Request Date/Time Start Date/Time Complete Date/Time Arrive Complete 10/21/2021 21:49:41 10/21/2021 21:49:41 10/21/2021 21:49:41 Document Home Meds Request 10/21/2021 21:49:41 Triage Complete 10/21/2021 21:49:41 10/21/2021 22:00:54 10/21/2021 22:00:54 Bed Assign Complete 10/21/2021 22:03:20 10/21/2021 22:03:20 10/21/2021 22:03:20 Dr Exam Complete 10/21/2021 22:03:20 10/21/2021 22:03:55 10/21/2021 22:03:55 RN Exam Complete 10/21/2021 22:03:20 10/21/2021 22:45:44 10/21/2021 22:45:44 Registration Complete 10/21/2021 22:03:55 10/21/2021 22:21:41 10/21/2021 22:21:41 Meds Admin Complete 10/21/2021 22:15:40 10/21/2021 22:38:40 Pending Labs Complete 10/21/2021 22:15:40 10/21/2021 22:55:29 10/21/2021 23:06:12 Lab Complete 10/21/2021 22:15:40 10/21/2021 22:55:29 10/21/2021 23:06:12 Urine Collect Complete 10/21/2021 22:15:40 10/21/2021 23:05:07 Reg Complete Request 10/21/2021 22:21:41 Reg Bed Request Complete 10/21/2021 22:21:41 10/21/2021 22:21:41 10/21/2021 22:21:41 Pending Labs Complete 10/21/2021 22:38:33 10/21/2021 22:38:33 10/21/2021 22:58:58 Lab Complete 10/21/2021 22:38:33 10/21/2021 22:38:33 10/21/2021 22:58:58 Pending Labs Complete 10/21/2021 22:46:59 10/21/2021 22:46:59 10/21/2021 22:47:07 Lab Complete 10/21/2021 22:46:59 10/21/2021 22:46:59 10/21/2021 22:47:07 Discharge Complete 10/21/2021 23:25:14 10/21/2021 23:55:18 10/21/2021 23:55:18 Transfer Complete 10/21/2021 23:55:18 10/21/2021 23:55:18 10/21/2021 23:55:18 ADDRESS: [address] [place] [phone] PHYS DOC NOTES: MEDICAL INFORMATION: Prescriptions Given: New Medications Printed Prescriptions famotidine (Pepcid 20 mg Tab) 1 Tablets By Mouth every day. Refills: 0. Medications to Continue Taking That Have Changed Printed Prescriptions START: ondansetron (Zofran 4 mg Tab) 1 Tablets By Mouth every 8 hours as needed Nausea/Vomiting. Refills: 0. Other Medications START: ondansetron (Zofran ODT 4 mg Tab-Dis) 1 Tablets By Mouth every 6 hours. Refills: 0. Medications to Continue with No Changes Other Medications albuterol (Albuterol (Eqv-ProAir HFA) 90 mcg/inh inhalation aerosol) 2 Puffs Inhalation every 4 hours as needed Cough and Congestion. Refills: 0. multivitamin, ( Multivitamins) 1 Tablets By Mouth every day. naproxen (Naprosyn 500 mg Tab) 1 Tablets By Mouth 2 times a day as needed for pain. Refills: 0. naproxen (naproxen 500 mg Tab) 1 Tablets By Mouth 2 times a day. with food. Refills: 0. penicillin V potassium (penicillin V potassium 500 mg Tab) 1 Tablets By Mouth 3 times a day for 10 Days. Take one tab by mouth 3 times a day. # 30. Refills: 0. PATIENT EDUCATION INFORMATION: Instructions: Nausea and Vomiting, Adult, Tpmc-qd-Ztrn; Gastritis, Adult, Ckhw-gk-Ivus Follow up: With: Address: When: Vania SIEGEL [address] [place], [place] [id number] [facility] (1) In 3 days 10/24/2021 Comments: Take the Pepcid once a day for the next 2 weeks, you can use the Zofran every 6 hours as needed for nausea and vomiting. Please follow-up with your primary care doctor in the next 2 to 3 days. Please return the ED for any new or worsening symptoms. DIAGNOSIS: Acute gastritis; N&V (nausea and vomiting) Normal [facility] ED Note-Physicianon 10-23-19 ED Note-Physician Basic Information Time Seen: Jannie Mendez DO 10/21/2021 22:03 Chief Complaint Pt states abdominal pain on LLQ and states nausea and vomiting on and off since Monday. Took a test, but negative, but thinks could be early. History of Present Illness Patient is a 25-year-old female with no past medical history presenting to the ED for evaluation of epigastric pain in addition to nausea and vomiting. Patient states she had these symptoms on Monday, they resolved and started again today. Multiple episodes of vomiting. Patient states pain is predominantly in the epigastrium however is not having intermittent left lower quadrant pain is unsure if she is , took a test at home which was negative. Denies any fevers or chills. Review of Systems General: Denied fever, chills, weight loss HEENT: Denied Congestion, rhinorrhea, sore throat Cardiac: Denied Chest pain, palpitations, dizziness/lightheadedness Respiratory: Denied Dyspnea, cough Abdominal: +abdominal pain, nausea, vomiting, denied diarrhea, constipation : Denied dysuria, hematuria Extremities: Denied leg swelling, leg pain, calf tenderness Neuro: Denied Focal neurologic deficits, vision changes, difficulty with speech Integumentary: Denied rashes or lesions Physical Exam Vitals & Measurements T: 36.9 ?C(Oral) HR: 72(Peripheral) RR: 16 BP: 109/66 SpO2: 100% HT: 162.0 cm HT: 162 cm WT: 80.0 kg WT: 80 kg BMI: 30.48 General: Well developed, non toxic appearing, no acute distress HEENT: Head atraumatic, Mucosa moist, hearing grossly normal Neck: No JVD, tracheal deviation Cardiac: Regular rate, rhythm, no murmurs, or gallops, 2+ radial pulses Respiratory: Lungs clear to auscultation B/L, normal respiratory effort Abdomen: Soft, palpation in the epigastrium, mild left lower quadrant tenderness, no rebound or guarding, no rebound or guarding, no peritoneal signs Extremities: No edema noted in the LE B/L, no tenderness to palpation Neurologic: Alert and oriented, speech clear Skin: No rashes or lesions Psych: Appropriate mood and behavior Medical Decision Making Patient is a 25-year-old female presenting to the ED for evaluation of abdominal pain, nausea vomiting. Patient has tenderness palpation in the epigastrium but is otherwise unremarkable. Laboratory evaluation is obtained shows mild leukocytosis and sodium is low at 132 but is otherwise negative. Patient is given GI cocktail, Pepcid, IV fluids with improvement of her symptoms. She is discharged home prescription for Pepcid, Zofran. She is to follow-up with her primary care doctor in the next 2 to 3 days. She is to return to the ED for any new or worsening symptoms. Assessment/Plan Acute gastritis (K29.00: Acute gastritis without bleeding) N&V (nausea and vomiting) (R11.2: Nausea with vomiting, unspecified) Orders: Al hydroxide/Mg hydroxide/simethicone, 30 mL, Susp-Oral, Oral, Once, Stop date 10/21/21 22:15:00 EDT, STAT, Start date 10/21/21 22:15:00 EDT atropine/hyoscyamine/PB/scopo jr, 10 mL, Elixir, Oral, Once, Stop date 10/21/21 22:15:00 EDT, STAT, Start date 10/21/21 22:15:00 EDT famotidine, 20 mg = 2 mL, Soln-IV, IV Push, Once, Stop date 10/21/21 22:15:00 EDT, STAT, Start date 10/21/21 22:15:00 EDT, 10/21/21 22:15:00 EDT famotidine, 20 mg = 1 tab(s), Oral, Daily, # 14 tab(s), Refills(s) 0 lidocaine topical, 200 mg, 10 mL, Soln-Oral, Oral, Once, Stop date 10/21/21 22:15:00 EDT, STAT, Start date 10/21/21 22:15:00 EDT ondansetron, 4 mg = 1 tab(s), Oral, q8hr, PRN Nausea/Vomiting, # 12 tab(s), Refills(s) 0 ondansetron, 4 mg = 2 mL, Injection, IV Push, Once, Stop date 10/21/21 22:15:00 EDT, STAT, Start date 10/21/21 22:15:00 EDT, 10/21/21 22:15:00 EDT Sodium Chloride 0.9% intravenous solution, Soln-IV, Misc, Once, Stop date 10/21/21 22:33:04 EDT, Physician Stop, 10/21/21 22:33:04 EDT Sodium Chloride 0.9% intravenous solution, 1,000 mL, Soln-IV, IV, Once, Stop date 10/21/21 22:15:00 EDT, STAT, Start date 10/21/21 22:15:00 EDT, Infuse over 61, minute(s) Automated Diff Basic Metabolic Panel Beta hCG Quantitative CBC w/ Auto Diff eGFR Hepatic Function Panel Lipase Level UA With Cult Reflex Medications Administered Given Al hydroxide/Mg hydroxide/simethicone 200 mg-200 mg-20 mg/5 mL oral suspension, 30 mL, Oral Elixir, 10 mL, Oral famotidine 10 mg/mL IV Blanca, 20 mg, IV Push lidocaine Viscous Top 2% Blanca 15 mL, 200 mg, Oral NS 1000 ml Bolus, 1000 mL, IV ondansetron 4 mg/2 mL Inj, 4 mg, IV Push Disposition Plan Discharge Prescription List Prescriptions Pepcid 20 mg Tab, 20 mg= 1 tab(s), Oral, Daily Zofran 4 mg Tab, 4 mg= 1 tab(s), Oral, q8hr, PRN Follow-up With When Contact Information Vaniacarlos SIEGEL In 3 days 10/24/[address] [place] [address] Business (1) Additional Instructions: Take the Pepcid once a day for the next 2 weeks, you can use the Zofran every 6 hours as nee (more content not included)... Normal [facility] Comment on above: Result Comment: Elec tronically Signed By: Jannie Mendez DO\.br\Date and Time Signed: 10/21/21 23:32 EDT ED Patient Education Noteon 10-22-2021 ED Patient Education Note Gastroenterology Nausea and Vomiting, Adult Nausea is feeling sick to your stomach or feeling that you are about to throw up (vomit). Vomiting is when food in your stomach is thrown up and out of the mouth. Throwing up can make you feel weak. It can also make you lose too much water in your body (get dehydrated). If you lose too much water in your body, you may: ? Feel tired. ? Feel thirsty. ? Have a dry mouth. ? Have cracked lips. ? Go pee (urinate) less often. Older adults and people with other diseases or a weak body defense system (immune system) are at higher risk for losing too much water in the body. If you feel sick to your stomach and you throw up, it is important to follow instructions from your doctor about how to take care of yourself. Follow these instructions at home: Watch your symptoms for any changes. Tell your doctor about them. Follow these instructions to care for yourself at home. Eating and drinking ? Take an ORS (oral rehydration solution). This is a drink that is sold at pharmacies and stores. ? Drink clear fluids in small amounts as you are able, such as: ? Water. ? Ice chips. ? Fruit juice that has water added (diluted fruit juice). ? Low-calorie sports drinks. ? Eat bland, pamc-ea-ltzfzq foods in small amounts as you are able, such as: ? Bananas. ? Applesauce. ? Rice. ? Low-fat (lean) meats. ? [place]. ? Crackers. ? Avoid drinking fluids that have a lot of sugar or caffeine in them. This includes energy drinks, sports drinks, and soda. ? Avoid alcohol. ? Avoid spicy or fatty foods. General instructions ? Take whyj-uod-pqddufk and prescription medicines only as told by your doctor. ? Drink enough fluid to keep your pee (urine) pale yellow. ? Wash your hands often with soap and water. If you cannot use soap and water, use hand rn hospice. ? Make sure that all people in your home wash their hands well and often. ? Rest at home while you get better. ? Watch your condition for any changes. ? Take slow and deep breaths when you feel sick to your stomach. ? Keep all follow-up visits as told by your doctor. This is important. Contact a doctor if: ? Your symptoms get worse. ? You have new symptoms. ? You have a fever. ? You cannot drink fluids without throwing up. ? You feel sick to your stomach for more than 2 days. ? You feel light-headed or dizzy. ? You have a headache. ? You have muscle cramps. ? You have a rash. ? You have pain while peeing. Get help right away if: ? You have pain in your chest, neck, arm, or jaw. ? You feel very weak or you pass out (faint). ? You throw up again and again. ? You have throw up that is bright red or looks like black coffee grounds. ? You have bloody or black poop (stools) or poop that looks like tar. ? You have a very bad headache, a stiff neck, or both. ? You have very bad pain, cramping, or bloating in your belly (abdomen). ? You have trouble breathing. ? You are breathing very quickly. ? Your heart is beating very quickly. ? Your skin feels cold and clammy. ? You feel confused. ? You have signs of losing too much water in your body, such as: ? Dark pee, very little pee, or no pee. ? Cracked lips. ? Dry mouth. ? Sunken eyes. ? Sleepiness. ? Weakness. These symptoms may be an emergency. Do not wait to see if the symptoms will go away. Get medical help right away. Call your local emergency services (911 in the [place] Do not drive yourself to the hospital. Summary ? Nausea is feeling sick to your stomach or feeling that you are about to throw up (vomit). Vomiting is when food in your stomach is thrown up and out of the mouth. ? Follow instructions from your doctor about eating and drinking to keep from losing too much water in your body. ? Take kepf-ucg-jpkcibu and prescription medicines only as told by your doctor. ? Contact your doctor if your symptoms get worse or you have new symptoms. ? Keep all follow-up visits as told by your doctor. This is important. This information is not intended to replace advice given to you by your health care provider. Make sure you discuss any questions you have with your health care provider. Document Released: 07/25/2008 Document Revised: 05/31/2019 Document Reviewed: 07/17/2018 [id number] Patient Education ? 2019 [employer]. Gastritis, Adult Gastritis is swelling (inflammation) of the stomach. Gastritis can develop quickly (acute). It can also develop slowly over time (chronic). It is important to get help for this condition. If you do not get help, your stomach can bleed, and you can get sores (ulcers) in your stomach. What are the causes? This condition may be caused by: ? Germs that get to your stomach. ? Drinking too much alcohol. ? Medicines you are taking. ? Too much acid in the stomach. ? A disease of the intestines or stomach. ? St (more content not included)... Normal [facility] ED Patient Summaryon 022 ED Patient Summary (Inserted Image. Gena ble to display) [place] [id number] Patient Discharge Instructions Person Information Name: JENI JANE Age: 25 Years [facility]: [id number] Arrival Date: 10/21/2021 21:49:41 Discharge Diagnosis: Acute gastritis; N&V (nausea and vomiting) Primary Care Physician: Vania SIEGEL MD Provider Information Primary Provider: Jannie Mendez DO Advanced Equipment Service Engineer:None The exam and treatment you received in the Emergency Department were for an urgent problem and are not intended as complete care. It is important that you follow up with a doctor, nurse practitioner, or physician?s baking assistant for ongoing care. If your symptoms become worse or you do not improve as expected and you are unable to reach your usual health care provider, you should return to the Emergency Department. We are available 24 hours a day. JENI JANE Andreina has been given the following list of patient education materials, prescriptions and follow-up instructions: Follow-up Instructions: With: Address: When: Vania SIEGEL [address] [place], [place] [id number] Business (1) In 3 days 10/24/2021 Comments: Take the Pepcid once a day for the next 2 weeks, you can use the Zofran every 6 hours as needed for nausea and vomiting. Please follow-up with your primary care doctor in the next 2 to 3 days. Please return the ED for any new or worsening symptoms. In the event that this physician does not participate in your insurance network, please consult with your insurance company to find a nearby participating provider. Patient Education Materials: Nausea and Vomiting, Adult, Rndx-vy-Szap; Gastritis, Adult, Uwzd-oc-Vpew A MESSAGE TO ALL PATIENTS REGARDING OPIOIDS PRESCRIPTION OPIOIDS: WHAT YOU NEED TO KNOW Prescription opioids can be used to help relieve mogupcku-pu-jseove pain and are often prescribed following a surgery or injury, or for certain health conditions. These medications can be an important part of the treatment but also come with serious risks. It is important to work with your healthcare provider to make sure you are getting the safest, most effective care. WHAT ARE THE RISKS AND SIDE EFFECTS OF OPIOID USE? Prescription opioids carry serious risks of addiction and overdose, especially with prolonged use. An opioid overdose, often marked by slowed breathing, can cause sudden . The use of prescription opioids can have a number of side effects as well, even when taken as directed: ? Tolerance?meaning you might need to take more of the medication for the same pain relief ? Physical dependence?meaning you have symptoms of withdrawal when a medication is stopped ? Increased sensitivity to pain ? Constipation ? Nausea, vomiting, and dry mouth ? Sleepiness and dizziness ? Confusion ? Depression ? Low levels of testosterone that can result in lower sex drive, energy, and strength ? Itching and sweating RISKS ARE GREATER WITH: ? History of drug misuse, substance use disorder, or overdose ? Mental health conditions (such as depression or anxiety) ? Sleep apnea ? Older age (65 years and older) ? Avoid alcohol while taking prescription opioids. Also, unless specifically advised by your health care provider, medications to avoid include: ? Benzodiazepines (such as Xanax or Valium) ? Muscle relaxants (such as Soma or Flexeril) ? Hypnotics (such as Ambien or Lunesta) ? Other prescription opioids KNOW YOUR OPTIONS Talk to your health care provider about ways to manage your pain that don?t involve prescription opioids. Some of these options may actually work better and have fewer risks and side effects. Options may include: ? Pain relievers such as acetaminophen, ibuprofen, and naproxen ? Some medication that are also used for depression or seizures ? Physical therapy and exercise ? Cognitive behavioral therapy, a psychological, goal-directed approach, in which patients learn how to modify physical, behavioral, and emotional triggers of pain and stress. IF YOU ARE PRESCRIBED OPIOIDS FOR PAIN: ? Never take opioids in greater amounts or more often than prescribed. ? Follow up with your primary health care provider. o Work together to create a plan on how to manage your pain. o Talk about ways to help manage your pain that don?t involve prescription opioids. o Talk about any and all concerns and side effects. ? Help prevent misuse and abuse o Never sell or share prescription opioids. o Never use another person?s prescription opioids. ? Store prescription opioids in a secure place and out of reach of others (this may include visitors, children, friends, and family). ? Safely dispose of unused prescription opioids: Find your community drug take-back program or your pharmacy mail-back program, or flush them down the toilet, following nando (more content not included)... Normal [facility] Hep Fun Panelon 10-22-2021 Bilirubin.indirect [Mass or moles/Vol] UTC Abnormal 0.1-0.9 [facility] Comment on above: Result Comment: Resu lt verified by Discern Rule. Performed result UTC (Unable to Calculate) was sent as an Alpha code due the inability to calculate a valid numeric value. Performed By: #### 2 723563, 2485471, 4232515, 40599244, 3984679, 7122716 ####[place] [address] [place] [address] Albumin [Mass/Vol] 4.0 g/dL Normal 3.3-5.0 [facility] Comment on above: Performed By: #### 2 018206, 4857286, 6839339, 04439104, 0249215, 6479610 ####[place] [place] [address] Albumin/Globulin (S) [Mass conc ratio] 1.3 Normal 1.1-2.2 [facility] Comment on above: Performed By: #### 2 379718, 0188465, 5737237, 08782233, 0356101, 1289970 ####[address] [address] ALP [Catalytic activity/Vol] 65 Int._Unit/L Normal 21-98 [facility] Comment on above: Performed By: #### 2 129730, 9005638, 1631830, 60111422, 5274315, 1196876 ####[address] [address] ALT No additional P-5'-P [Catalytic activity/Vol] 13 Int._Unit/L Normal 6-46 [facility] Comment on above: Performed By: #### 2 788998, 6040126, 3810628, 56814017, 2774778, 6986849 ####[place] [address] [place] [address] AST [Catalytic activity/Vol] 15 Int._Unit/L Normal 5-43 [facility] Comment on above: Performed By: #### 2 662437, 6736346, 7853610, 43924475, 5537375, 3042560 ####[facility] [address] [place] [address] Bilirubin [Mass/Vol] 0.3 mg/dL Normal 0.0-1.1 [facility] Comment on above: Performed By: #### 2 866693, 1731660, 4596188, 77635238, 7684460, 7117403 ####[address] [place] [address] Bilirubin.direct [Mass/Vol] mg/dL Normal 0.1-0.4 [facility] Comment on above: Performed By: #### 2 750904, 1211893, 3701309, 72637032, 7858375, 0543985 ####[address] [address] Globulin (S) [Mass/Vol] 3.0 g/dL Normal 1.4-4.0 [facility] Comment on above: Performed By: #### 2 741075, 0969089, 1054034, 10925105, 0967425, 6356082 ####[address] [address] Protein [Mass/Vol] 7.0 g/dL Normal 6.0-7.8 [facility] Comment on above: Performed By: #### 2 655328, 3350790, 4098754, 72425676, 4281139, 3718273 ####[facility] [address] [place] [address] Lipase Levelon 10-22-2021 Lipase [Catalytic activity/Vol] 27 U/L Normal 13-58 [facility] Comment on above: Performed By: #### 2 497308, 1052028, 4041971, 08601831, 2373306, 2711493 ####[facility] [address] [place] [address] UA With Cult Reflexon 2021 Bacteria LM Ql (Urine sed) TRACE Normal Trace [facility] Comment on above: Performed By: #### 1 [id number] #### [facility] [address] [place] [address] Bilirubin Ql (U) Negative Normal Negative [facility] Comment on above: Performed By: #### 1 9561618 #### [facility] [address] [place] [address] Clarity (U) CLEAR Normal Clear [facility] Comment on above: Performed By: #### 1 [id number] #### [facility] [address] [place] [address] Color (U) YELLOW Normal Yellow [facility] Comment on above: Performed By: #### 1 [id number] #### [facility] [address] [place] [address] Epithelial cells.squamous LM.HPF (Urine sed) [#/Area] 0-2 Normal 0-2 [facility] Comment on above: Performed By: #### 1 4041109 #### [facility] [address] [place] [address] Glucose Test strip (U) [Mass/Vol] Negative Normal Negative [facility] Comment on above: Performed By: #### 1 4588770 #### [facility] [address] [place] [address] Hemoglobin Ql (U) 1+ Abnormal Negative [facility] Comment on above: Performed By: #### 1 7805815 #### [facility] [address] [place] [address] Ketones (U) [Mass/Vol] Negative Normal Negative [facility] Comment on above: Performed By: #### 1 8403668 #### [facility] [address] [place] [address] [place].plasma/Lith ium.RBC (Bld) [Mass ratio] 0-3 Normal 0-3 [facility] Comment on above: Performed By: #### 1 2016928 #### [facility] [address] [place] [address] Nitrite Ql (U) Negative Normal Negative [facility] Comment on above: Performed By: #### 1 2791116 #### [facility] [address] [place] [address] pH (U) 5.5 [pH] Invalid Interpretation Code 5.0-9.0 [facility] Comment on above: Performed By: #### 1 3645820 #### [facility] [address] [place] [address] Protein (U) [Mass/Vol] Negative Normal Negative [facility] Comment on above: Performed By: #### 1 6644582 #### [facility] [address] [place] [address] Specific gravity (U) [Rel density] 1.015 Invalid Interpretation Code 1.005-1.030 [facility] Comment on above: Performed By: #### 1 6947189 #### [facility] [address] [place] [address] Type of Urine collection method Clean Catch Normal [facility] Comment on above: Performed By: #### 1 3635600 #### [facility] [address] [place] [address] Urobilinogen Qn (U) 0.2 {Deanna'U}/dL Normal 0.0-1.0 [facility] Comment on above: Performed By: #### 1 2217770 #### [facility] [address] [place] [address] WBC Auto Ql (U) TRACE Abnormal Negative [facility] Comment on above: Performed By: #### 1 9754233 #### [facility] [address] [place] [address] WBC LM.HPF (Urine sed) [#/Area] 0-5 Normal 0-5 [facility] Comment on above: Performed By: #### 1 9652884 #### [facility] [address] [place] [address] eGFRon 10-22-2021 GFR/1.73 sq M.predicted among blacks MDRD (S/P/Bld) [Vol rate/Area] mL/min/{1.73_m2} Normal >=59 [facility] Comment on above: Order Comment: Order added by Discern Expert. Result Comment: eGFR is race adjusted. AA=. Performed By: #### 2 767147, 9874536, 7684385, 94455287, 1607701, 7269577 ####[facility] [address] [place] [address] GFR/1.73 sq M.predicted among non-blacks MDRD (S/P/Bld) [Vol rate/Area] mL/min/{1.73_m2} Normal >=59 [facility] Comment on above: Order Comment: Order added by Discern Expert. Result Comment: Instructional Design Manager ken kidney disease could be indicated at eGFR's of less than 60 mL/min/1.73m2. Kidney failure is indicated at less than 15 mL/min/1.73m2. Performed By: #### 2 855530, 8487565, 0000977, 05749986, 6397104, 6458903 ####[facility] [address] [place] [address] CHEMISTRYOrdered By: SYSTEM SYSTEM on 10-21-2021 Albumin [Mass/Vol] 4.0 g/dL Normal 3.3 - 5.0 gm/dL [facility] Albumin/Globulin [Mass ratio] 1.3 {ratio} Normal 1.1 - 2.2 [facility] ALP [Catalytic activity/Vol] 65 [iU]/d Normal 21 - 98 Int._Unit/L [facility] ALT No additional P-5'-P [Catalytic activity/Vol] 13 [iU]/d Normal 6 - 46 Int._Unit/L [facility] Anion gap [Moles/Vol] 9 mmol/L Normal 6 - 16 mEq/L [facility] AST [Catalytic activity/Vol] 15 [iU]/d Normal 5 - 43 Int._Unit/L [facility] Bilirubin [Mass/Vol] 0.3 mg/dL Normal 0.0 - 1.1 mg/dL [facility] Bilirubin.direct [Mass/Vol] mg/dL Normal 0.1 - 0.4 mg/dL [facility] Bilirubin.indirect [Mass or moles/Vol] Unable to Calculate mg/dL Invalid Interpretation Code 0.1 - 0.9 mg/dL [facility] Calcium [Mass/Vol] 9.9 mg/dL Normal 8.9 - 11. 1 mg/dL [facility] Chloride [Moles/Vol] 107 mmol/L Normal 101 - 111 mmol/L [facility] CO2 [Moles/Vol] 20 mmol/L Low 21 - 31 mmol/L [facility] Creatinine [Mass/Vol] 0.5 mg/dL Normal 0.5 - 1.3 mg/dL [facility] GFR/1.73 sq M.predicted among blacks MDRD (S/P/Bld) [Vol rate/Area] mL/min/1.73 m2 Normal >=59mL/min/ 1.73 m2 [facility] S GFR/1.73 sq M.predicted among non-blacks MDRD (S/P/Bld) [Vol rate/Area] mL/min/1.73 m2 Normal >=59mL/min/ 1.73 m2 [facility] S Globulin (S) [Mass/Vol] 3.0 g/dL Normal 1.4 - 4.0 gm/dL [facility] Glucose [Mass/Vol] 92 mg/dL Normal 55 - 199 mg/dL [facility] HCG.beta subunit Qn mIU/mL Normal 1 - 3 mIU/mL [facility] Lipase [Catalytic activity/Vol] 27 U/L Normal 13 - 58 unit/L [facility] Potassium [Moles/Vol] 3.9 mmol/L Normal 3.5 - 5.3 mmol/L [facility] Protein [Mass/Vol] 7.0 g/dL Normal 6.0 - 7.8 gm/dL [facility] Sodium [Moles/Vol] 132 mmol/L Low 135 - 145 mmol/L [facility] Urea nitrogen [Mass/Vol] 18 mg/dL Normal 5 - 21 mg/dL [facility] Urea nitrogen/Creatinine [Mass ratio] 36 mg/mg High 10 - 20 [facility] Consent for Treatmenton Consent for Treatment [id number] Normal [facility] HEMATOLOGYOrdered By: SYSTEM SYSTEM on 10-21-2021 Basophils/100 WBC (Bld) 0.6 % Normal 0.0 - 2.0 % [facility] Basophils/Leukocyte s Auto (Bld) [Pure # fraction] 0.1 E9/L Normal 0.0 - 0.2 E9/L [facility] Eosinophils/100 WBC (Bld) 1.2 % Normal 0.0 - 8.0 % [facility] Eosinophils/Leukocy shady Auto (Bld) [Pure # fraction] 0.1 E9/L Normal 0.0 - 0.5 E9/L [facility] Lymphocytes/100 WBC (Bld) 28.7 % Normal 14.0 - 50.0 % [facility] Lymphocytes/Leukocy shady Auto (Bld) [Pure # fraction] 3.4 E9/L Normal 1.0 - 4.0 E9/L [facility] Monocytes/100 WBC (Bld) 7.9 % Normal 4.0 - 14.0 % [facility] Monocytes/Leukocyte s Auto (Bld) [Pure # fraction] 0.9 E9/L Normal 0.2 - 1.0 E9/L [facility] Neutrophils/100 WBC (Bld) 61.6 % Normal 36.0 - 75.0 % [facility] Neutrophils/Leukocy shady Auto (Bld) [Pure # fraction] 7.3 E9/L Normal 2.0 - 7.5 E9/L [facility] HEMATOLOGYOrdered By: Alejandro Cota on 10-21-2021 Erythrocyte distribution width (RBC) [Ratio] 13.5 % Normal 10.9 - 14.2 % [facility] Hematocrit (Bld) [Volume fraction] 39.3 % Normal 34.0 - 46.0 % [facility] Hemoglobin (Bld) [Mass/Vol] 13.3 g/dL Normal 12.0 - 16.0 gm/dL [facility] MCH (RBC) [Entitic mass] 29.2 pg Normal 27.0 - 34.0 pg [facility] MCHC (RBC) [Mass/Vol] 33.7 g/dL Normal 31.4 - 36.0 gm/dL [facility] MCV (RBC) [Entitic vol] 86.5 fL Normal 80.0 - 100.0 fL [facility] Platelet mean volume (Bld) [Entitic vol] 9.3 fL Normal 6.4 - 10.8 fL [facility] Platelets (Bld) [#/Vol] 280.0 E9/L Normal 150.0 - 500.0 E9/L [facility] RBC (Bld) [#/Vol] 4.5 E12/L Normal 4.3 - 5.9 E12/L [facility] WBC corrected for nucl RBC Auto (Bld) [#/Vol] 11.8 E9/L High 4.0 - 11.0 E9/L [facility] URINALYSISOrdered By: Alejandro Cota on 10-21-2021 Bacteria LM Ql (Urine sed) Trace /HPF Normal Trace/HPF [facility] Bilirubin Ql (U) Negative (10/21/21 10:55 PM) Normal Negative [facility]A [facility] SS Clarity (U) Clear (10/21/21 10:55 PM) Normal Clear [facility]A [facility] SS Color (U) Yellow (10/21/21 10:55 PM) Normal Yellow [facility]A Auto SS Epithelial cells.squamous LM.HPF (Urine sed) [#/Area] 0-2 /HPF Normal 0-2/HPF [facility] Glucose Test strip (U) [Mass/Vol] Negative (10/21/21 10:55 PM) Normal Negative [facility] Hemoglobin Ql (U) 1+ *ABN* (10/21/21 10:55 PM) Invalid Interpretation Code Negative [facility]A [facility] Ketones (U) [Mass/Vol] Negative (10/21/21 10:55 PM) Normal Negative [facility] UA Auto SS [place].plasma/Lith ium.RBC (Bld) [Mass ratio] 0-3 /HPF Normal 0-3/HPF [facility]A [facility] SS Nitrite Ql (U) Negative (10/21/21 10:55 PM) Normal Negative [facility] SS pH (U) 5.5 *NA* (10/21/21 10:55 PM) Invalid Interpretation Code 5.0 - 9.0 [facility]A [facility] SS Protein (U) [Mass/Vol] Negative (10/21/21 10:55 PM) Normal Negative [facility]A Auto SS Specific gravity (U) [Rel density] 1.015 *NA* (10/21/21 10:55 PM) Invalid Interpretation Code 1.005 - 1.030 [facility]A [facility] SS UA Spec Desc Clean Catch (10/21/21 10:55 PM) Normal [facility]A Auto SS Urobilinogen Qn (U) 0.6792853 {Deanna'U}/dL Normal 0.0 - 1.0 EU/dL [facility]A Auto SS WBC Auto Ql (U) Trace *ABN* (10/21/21 10:55 PM) Invalid Interpretation Code Negative [facility] UA Auto SS WBC LM.HPF (Urine sed) [#/Area] 0-5 /HPF Normal 0-5/HPF [facility] UA Auto SS Coding Summary.on 10-13-2021 Coding Summary. CD:[id number] Gh0bWw+PG hlYWQ+NH7EYISvM56biMUeqJ2VM7w EXT0QZIBAUQRRRE8GGV2gkAW8ZSwz Z4HohiMw HuyywPBvNV76ZTp5EKS6nSsgVXzei L6rhTMzA6d9LzExIC34vI90PSmfAZ HgDfK9KtTujktcwXPy B4mwPgUeuXKlDyz+PHRhYmxlIHdpZ LTkMJamRVClGwSrjYpbIV6zFh6wWB VyLWNvbGxhcHNlOiBj q2hnGPFcSMclLT2vmKmeI0EctIZ2M HKzk7n0Vi99bKH+KROoUYM8jZdbON bpx337VtGre2bcROG9 xREzOFrgACH1D91zp3J3UNXkRKYfS FL7wUJ6kM2xaRrabuokJ8DyuSXdEe H6ZAF6dREbqR9uaYev unkyjQ8yWxn+M04KQM4EXSMWCS4ZC wv2L9XkHjvgcZK+VY05GWWyJX20dU XxmNAtr4wscCs0WaTl KZCiYPU9wRqqNCstm9BmBKImC34ia PKzm4Y1IZDaeVgorRCfEhWsgPZ1eA 3zDHbtemlwj3oyclzh Qyvwo6kiey24dZ80W68jIUagXIGxP ZL5CQOfVRNnaGhgww2ryY7bXg5+ID lmg2uep0whtWq4NuDl BTAywyVhmBhfOII7a0ZdSo29X4Xvr Onep1AoXaa9qp41lKPyt0N3vEU6QZ uwLXEshO6qKRodIwY0 WMZvDvYrvI02rFTnLJtpYs9twKuvn YbrSU6mGVHrkajxMHPxpG2nFDEfyS DcfPkuSB2uTBKfbqbj m642JvLxEDB8MJKipLTtQ3EsjG4yM wHaTQXzYEKsN1ZxhIPxVJxzT437QC ihVmE5BYTndgJiS8Rp XFMhyTyjNdP5r4M5Iw9Xo2LhyzxhF DG0GLcjYSM1OvX4WyRoXhX4M7VnGj o6XGFejTicMW7eA1Nv IEChpseoxgwlwZF8JONwKBOdiS57b CRvREvyWu2vi5Q9t726VVAbBQJzbD 49Vv8xoWwjIPDgvXRT vW1swmhqr5ijpcgrZlDfHUCmBVg5W Pw9MZAwfGelLoXyOPB0BfW5VDM3tJ RowA0ktAijfmyljY0w Oyc+I47yeP1vEHJ1JJS4cosmCYLcy iSfQT28TS68H6SuWmkmmCVruGQ+PG ChwqUloRogDY2aYiAn c5mke7XgKVhoG4EbSZNkWEzlHqs8U XXoELB3yZX9jS5wSYMzPJpqg4B6vP I3G2NxfsOist7ai6te JEUzCTycM41fkMGub5E1UHCxjGI2P PLhjQmjTyOhgI14Aaw+PGNvbGdyb3 TkFvnms6azd2mvgVs8 QbPsEXLrupUhnOajVEM2f7QlMg11C 29sIHdpZHRoPSIxNSUiIHZhbGlnbj 2cwR1aJn3+PGNvbCB3 bXH9jE3jLKNpUvT4PAvgY191EiSru VHeTberz0pyl8sopVr7LkYqKJMipa FwlJksHPQ1s7WoQo90 J82bPHkmOUAvPUAwUDGtYIBzsTiwl e0fnZ6mGp1+FL2mh4qzpx33nO03tM I+MTRqLEQ0pUopXXjd UDKauK1zLYppVwX4ETQbVxLfyJ31l ZHrUZldBy8irFjuwEgoIO1vYJZlxk tql104ApTag2xpNYIe hGVhEAmyWVP9Z44sp3N4LUScBOCbW NC1hZY6lE2cvNacjjkvlHVmpCklgf YyaMzsKPqdPNgdI180 QBFkzRhcLcRgmVffzqJiRuLxOMb6M 1EfOoy2BAXctPkvBO0hnXQfNThsSj 2ujEvvgIiuSO6qHIVe civog819AjRvd0cbITYpfFSkRSxfK NF1S36gb0C1FTQwZOJkFSO0mXH2cE 1hbGlnbjogbGVmdDsg eoTdkLbcMPeiHYybQ686XJMfxBqpT tKablSqYKPaoIQ8GO64KC64jSZgp1 Y5mVR1V7EeMDOhnhwv hianyQV0IGYwTTQuaD84Hg8saYypV u9gJUTeODH8MUNhyZDhI3JsqQ2mUw YaWCVtJXGtU9EujWNp RQrfH119UGrsZkG1ULXbzxJvS7EhU ZVvcMdqCfM3p3K3Xz6TE4D0YB25RX 37iQVlx0C5wQB9O4Fw BYDkiiltissqaSP9MKKvHXZbiM36P m7stJapRf6aEYEeICU2OMIxuJKrQ8 LyjT3gUbJcUDJrMBKo M8NewZUsUXbjT591REkxZeK8KMCev zBuA4GrULGkdKwnRvH0x5P0Sj5SPV d3LG44TS56oQZbe9F5 uMS4V3VmIZJclqblvkbvfLV8SOQsO VJzcH34Un2cxYnuLn7lHSCuTMQ6RH FpgBJiU4VbhD0mQkJv MTMnQFNgO1XsqURnPLckZ620HCxkT qT2MCKpoeDdI0ZxCUPztIafEuO3l5 X0Ri2RFVOaBP00FAV6 uEY8WW18FB17J3AmGevyvYIzaYX+P HRhYmxlIHdpZHRoPScxMDAlJyBzdH ywDI1vNf9wMAFxSNHm pGzfaXNqVxEcd9lvQLYrTHmsNR3dq MpxT4YviNS7TLNqt0t4Kp28R50hG1 JvdXA+QVHvbMP5hAN1 vI1cGzYnUeO2RMjtJ176IiMvcJNrH rfon2xsx3nopEu0UnO3BXVnrrImfI bvYSQ1p8RjVm00P42c DBlcCPLvLIUbEZKiHMPyrWkuzs3uu G9wIi8+UXTcsXX7vRH9eY4tWyYeKn Q6ZUxdF403RgGjkHJm Gnkux8pif1ftuZs2TiYpGXHkceLxx TbcHCP3v3FsMl15A2ZmkUylc4YiYj e9lt99oUVyb4N4gKA8 M3JtZWBvxkzwpATcsMadTG9kCUOxn gmgRPTwqQ9wODQkS0v5CnHfRuV0DW thH5QeprE2WZEswAQk ZQmgSLJ8R10ab0L4FMStGBAvBSE4l JM1sX6zbNxzhlwxyRQwmSowieVqlV vcWBhrFLxwG655SREh mJwpIXZniY3xAYAtuGCroMqkMR9pW TBpbjsnPkFDUkVFLCBKRVdFTEwgUj wvdGQ+CQBaDYV6lLnn KTebQVGpgK1cEHYiB4g4NwWiTdH7D PxsX5IiMJRbhgapEv13aG0fRrQzYo W4GBtiX9KpfuA2LBWe aRLvAUjtKYB3O86mw0E1BTUoQLVvS UF1jFG8zT8bsFprryvxhFWihYofcy InlDheDGhmPObbE957 OAQtlMdzDgUfWhSmOaK4CTh8D3StS ye7KZBnbJdcOU1aqLFhQVclGg3yfA toeNvuCX5bASWdnegw LYTugR8vUKZxzEFdpStoTW2iOZSes natp600XeWbSXV8AVImzYFzG0KibC 5lBpLlLOAmWSCeT6Qk wHRtJGftR431PBgiMiU1ZDZvthSsG 7KfOVZpsIogGpQ3g0R8Yy6qBNUIVF FyczwvdGQ+PHRkIHN0 mOllBJbgZOKtnO8tZGTsW1e8MtJxQ tM0YFvtN0TqJARmfqwkKm66uK0jAu FuRrX3NIalS2OvnhR4 HXTlgLFeCTktYUS8F27db8U2JMYwJ HZnSLI9aAN0aB4waJptbypfyVUwsR sgdmVydGljYWwtYWxp F182ATUqcAxrRrZkxHNqWVqxnNL+P SZzNOF8nLibGScfLVXfaZ7dSFIwB7 m4KeLpPfM2TSojO2Wa HSIggmzzGx17nT3pSoDpGvD6ODvrS 9PmidQ5APCemNDoMKmbHAS4T90qb3 H1FVBdWODiQIB6pBU7 oC6qeNrsqkztnDCtgMvmgyEnuYilC ZjxKUzmK933FKQrdWkfWrMlAYLwOW 5jeTwvdGQ+DS97xg46 B9DqTokhVwx1EMSgMYO7bFT0rM3uD DQpPGsqv9Y7gSV8V8PugzVfoo0ar1 jkZKHrPKfgL00akLNq w4W3VJXosXX4XEPogJsyHpJecR72I yc+NCBmwYcbf9KmNikqt4rzn8byuN s5EhAvLZLfczSapCqv JQS2a2IrVc14P03uNLgxVOExNTZdE PGcGTIscVlmbd5bzQ1tXy9+PGNvbC M9qLB1zW7rQhYgPoO6 JYceC351TxDozSBaRduak5hcr0qyf Si1YwUuPOSjpxPpmElzBJN0z8JtSz 17T4CrnVdhv4KnPci4 rq59sYWge1E0bPT1L3QzEZPkatqlh OIjgQcoME7aDJHqrvwdWPIpdK9zIK BvO5d8UiKfRzV3FCaa M9XgliC8RCOupTDvDAIbvAZPtN0ih geqt7fashaaAiRpEEXoEPq8CWc1UC OtxBzgSnIpGDW6UcW5 PVR4wPTwtH9vcGmlygcfnX7jLzj+U Rk0b0opwMRkBN6qlQZ6IL68UQ63vZ Lzp5O4fXB9E3WiUMNr wdqyxtbdlCC0INEtVPGcbT08Es9po BosUu1bUBXuLGV0CYNllCClL4OqgM 6mErCcTRKcEGAfR9Ll nYBzUWxvR639ANdkGaP4RMWkuaCcP 6DhGJAnsPjmAlN5z6L3Gs1ADW60MV 43NQ29gLRos3H1tCI0 Y8ToVTIvqrzgwauhgLF0UFIxLVVhz F19Cf0pgHgwNh0dMQZfBAY9YANmaR SeS6BnzZ6xTnShULKp UHQlR3NdlBCbPVovW198KYocMbK8F UOfsmHiB9KdLFDjbFhxKwT1f5M4Ed 2HOf50FK36LT33lLBo w6R3cLY3M4CbZXJctxmsuncsaYU8S KPqQTDqpD91Ez3ehFtcOc7oRQFhER U4JRJhhEJrB0KnwN6u YsEkAICuDYRzP0JrsHCyXFvjE106Y XinPuF5LNEazhQpC0RkJKXpaXbpEq S8c9Z5Wv5PJXvmafc7 N5UzSvguxNR+VM94XJYpDZ73zADof UXei5dkzQa2EcPvPNBqENW1sEdcTZ hac5KcEPCuX66jkTXz c2U6 (more content not included)... [facility] Consent for Treatmenton 09-21 Consent for Treatment [id number]:127 [facility] Discharge Instructionson Discharge Instructions [id number]:127 [facility] ED Clinical Summaryon 2021 ED Clinical Summary (Inserted Image. Gena ble to display) [place] [id number] ED Clinical Summary Person Information Name: JENI JANE/[facility] Age: 25 Years : 1995 Sex: Female Language: Ukrainian PCP: Vania SIEGEL MD Marital Status: Phone: [phone] Visit Id: Visit Reason: Dental pain; TOOTH PAIN Speciality: Acuity: 5 Enc Type: Emergency Med Service: Emergency Arrival: 10/12/2021 12:27:46 Discharge: 10/12/2021 12:42:15 LOS: 000 00:15 Checkin: 10/12/2021 12:27:46 Checkout: 10/12/2021 12:42:15 Dispo Type: Home (Routine DC) EVENTS: Event Name Event Status Request Date/Time Start Date/Time Complete Date/Time Arrive Complete 10/12/2021 12:27:46 10/12/2021 12:27:46 10/12/2021 12:27:46 Document Home Meds Request 10/12/2021 12:27:46 Triage Complete 10/12/2021 12:27:46 10/12/2021 12:34:00 10/12/2021 12:34:00 Bed Assign Complete 10/12/2021 12:31:07 10/12/2021 12:31:07 10/12/2021 12:31:07 Dr Exam Complete 10/12/2021 12:31:07 10/12/2021 12:34:30 10/12/2021 12:34:30 RN Exam Complete 10/12/2021 12:31:07 10/12/2021 12:35:54 10/12/2021 12:35:54 Registration Request 10/12/2021 12:34:30 Dr Exam Complete 10/12/2021 12:35:09 10/12/2021 12:35:09 10/12/2021 12:35:09 Discharge Complete 10/12/2021 12:39:15 10/12/2021 12:42:21 10/12/2021 12:42:21 Transfer Complete 10/12/2021 12:42:21 10/12/2021 12:42:21 10/12/2021 12:42:21 ADDR[address]: [address] [facility] [address] [facility] [id number] [facility] DOC NOTES: MEDICAL INFORMATION: Prescriptions Given: New Medications [facility], [address] [place], [place] [id number], [phone] penicillin V potassium (penicillin V potassium 500 mg Tab) 1 Tablets By Mouth 3 times a day for 10 Days. Take one tab by mouth 3 times a day. # 30. Refills: 0. Medications to Continue Taking That Have Changed [facility], [address], [place] [id number], [phone] START: naproxen (Naprosyn 500 mg Tab) 1 Tablets By Mouth 2 times a day as needed for pain. Refills: 0. Other Medications START: naproxen (naproxen 500 mg Tab) 1 Tablets By Mouth 2 times a day. with food. Refills: 0. Medications to Continue with No Changes Other Medications albuterol (Albuterol (Eqv-ProAir HFA) 90 mcg/inh inhalation aerosol) 2 Puffs Inhalation every 4 hours as needed Cough and Congestion. Refills: 0. multivitamin, ( Multivitamins) 1 Tablets By Mouth every day. ondansetron (Zofran ODT 4 mg Tab-Dis) 1 Tablets By Mouth every 6 hours. Refills: 0. PATIENT EDUCATION INFORMATION: Instructions: Dental Pain Follow up: With: Address: When: Dental: [facility] [phone] In 3 days 10/15/2021 With: Address: When: Dental: [facility] [phone] In 3 days 10/15/2021 With: Address: When: Dental: [facility] [phone] In 3 days 10/15/2021 DIAGNOSIS: Odontalgia [facility] ED Note-Physicianon 10-13-19 ED Note-Physician Basic Information Time Seen: Mario June PA-C 10/12/2021 12:34 Chief Complaint pt reports three days of right lower dental pain. History of Present Illness 25-year-old female comes to the ED for evaluation of dental pain. For the last 3 days she has had pain to the right mandibular region. No fever, chills, nausea or vomiting. Bleeding or drainage from the area. No difficulty with speaking or swallowing. No prior treatments. No concern for . Review of Systems A 10 point review of systems is negative except as noted above. Medical and Surgical History: Reviewed and noted Social history: Lives at home Tobacco: Denies Physical Exam Vitals & Measurements T: 36.9 ?C(Oral) HR: 80(Peripheral) RR: 18 BP: 107/70 SpO2: 98% HT: 160.0 cm HT: 160 cm WT: 80.0 kg WT: 80 kg BMI: 31.25 Nurses notes and vital signs reviewed and patient is not hypoxic. General: The patient appears well, no acute distress. Skin: Warm, dry. Head: Atraumatic. Neck: No soft tissue swelling. Eye: Normal conjunctiva. Ears, Nose, Mouth, and Throat: Tenderness around the #30 tooth with malrotation and impaction. No gingival erythema. No swelling. No evidence of abscess formation. No dental instability or bleeding. No tonsillar hypertrophy or exudates. Uvula is midline. No associated stridor, trismus or drooling. Cardiovascular: Strong distal pulses. Chest wall: Respiratory: Respirations are nonlabored. Back: Normal range of motion. Musculoskeletal: Normal ROM with no gross deformity. Gastrointestinal: Urological: Neurological: Awake and alert. No focal deficits. Follows commands. Psychiatric: Cooperative. Medical Decision Making No evidence of acute fractures. No trismus, stridor or drooling. 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 No evidence of abscess formation requiring incision and drainage. No fever or chills. No airway compromise. Patient treated with pain medications and antibiotics. Given dentistry follow-up. Patient was encouraged to return to the ED if symptoms worsen or change. Assessment/Plan Odontalgia (K08.89: Other specified disorders of teeth and supporting structures) Orders: naproxen, 500 mg = 1 tab(s), Oral, BID, PRN for pain, # 20 tab(s), Refills(s) 0, [facility], 160, cm, 10/12/21 12:34:00 EDT, Height/Length Dosing, 80, kg, 10/12/21 12:34:00 EDT, Weight Dosing penicillin V potassium, 500 mg = 1 tab(s), Oral, TID, Take one tab by mouth 3 times a day. # 30, X 10 day(s), # 30 tab(s), Refills(s) 0, [facility], 160, cm, 10/12/21 12:34:00 EDT, Height/Length Dosing, 80, kg, 10/12/21 12:34:00 EDT, Weight Dosing Disposition Plan Patient Discharge Condition Disposition: Discharged home Condition: Improved and stable Counseled: Patient and/or family were counseled to workup, results, treatment plan and follow-up recommendations Discharge Prescription List Prescriptions Naprosyn 500 mg Tab, 500 mg= 1 tab(s), Oral, BID, PRN penicillin V potassium 500 mg Tab, 500 mg= 1 tab(s), Oral, TID Follow-up With When Contact Information Dental: [facility] [phone] In 3 days 10/15/2021 EDT Additional Instructions: Dental: [facility] [phone] In 3 days 10/15/2021 EDT Additional Instructions: Dental: [facility] [phone] In 3 days 10/15/2021 EDT Additional Instructions: Patient Education Dental Pain Attestation Patient seen and evaluated by the physician baking assistant. Attending physician was present in the emergency department and supervised care. This visit was performed by both the physician and an APC. I performed all aspects of the MDM as documented. This report was transcribed using voice recognition software. Every effort was made to ensure accuracy, however, inadvertently computerized air traffic controller mistakes may be present. Appropriate healthcare PPE was used in evaluating this patient. The patient was placed in a mask. The healthcare provider was wearing mask, gloves, and utilizing proper hand hygiene. All equipment was properly cleansed. Problem List/Past Medical History Ongoing Acute low back pain BMI 31.0-31.9,adult Obesity due to excess calories Smoker Tobacco user Historical Medications Inpatient No active inpatient medications Home Albuterol (Eqv-ProAir HFA) 90 mcg/inh inhalation aerosol, 2 puff(s), Inhalation, q4hr, PRN Naprosyn 500 mg Tab, 500 mg= 1 tab(s), Oral, BID, PRN naproxen 500 mg Tab, 500 mg= 1 tab(s), Oral, BID penicillin V potassium 500 mg Tab, 500 mg= 1 tab(s), Oral, TID Multivitamins, 1 tab(s), Oral, Daily Zofran ODT 4 mg Tab-Dis, 4 mg= 1 tab(s), Oral, q6hr Allergies No Known Allergies No Known Medication Allergies Social History Alcohol - Denies Alcohol Use, 08/07/2019 Employment/School - Not employed or in school, 08/07/2019 Substance Abuse - Denies Substance Abuse, 08/07/2019 Tobacco - High Risk, 08/07/2019 10 or more cigaret (more content not included)... [facility] Comment on above: Result Comment: Elec tronically Signed By: ShayleeMario sales PA-C\.br\Date and Time Signed: 10/12/21 12:42 EDT\.br\Electronically Co-Signed By: Sheldon Canas DO\.br\Date and Time Co-Signed: 10/12/21 14:10 EDT ED Patient Education Noteon 10-12-2021 ED Patient Education Note Dentistry Dental Pain Dental pain may be caused by many things, including: ? Tooth decay (cavities or caries). Cavities expose the nerve of your tooth to air and to hot or cold temperatures. This can cause pain or discomfort. ? Abscess or infection. A dental abscess is a collection of pus from a bacterial infection in the inner part of the tooth (pulp). It usually occurs at the end of the root of a tooth. ? Injury. ? An unknown reason (idiopathic). Your pain may be mild or severe. It may occur when you are: ? Chewing. ? Exposed to hot or cold temperatures. ? Eating or drinking sugary foods or beverages, such as soda or candy. Your pain may be constant, or it may come and go without cause. Follow these instructions at home: Watch your dental pain for any changes. The following actions may help to lessen any discomfort that you are feeling: Medicines ? Take cury-wjl-vsdhaiu and prescription medicines only as told by your health care provider. ? If you were prescribed an antibiotic medicine, take it as told by your health care provider. Do not stop taking the antibiotic even if you start to feel better. Eating and drinking ? Avoid foods or drinks that cause you pain, such as: ? Very hot or very cold foods or drinks. ? Sweet or sugary foods or drinks. Managing pain and swelling ? Apply ice to the painful area of your face: ? Put ice in a plastic bag. ? Place a towel between your skin and the bag. ? Leave the ice on for 20 minutes, 2?3 times a day. Brushing your teeth ? To keep your mouth and gums healthy, use fluoride toothpaste to brush your teeth twice a day. Floss once a day. ? Use a toothpaste made for sensitive teeth if directed by your health care provider. ? Sycamore your teeth with a soft-bristled toothbrush. General instructions ? Do not apply heat to the outside of your face. ? Gargle with a salt-water mixture 3?4 times a day or as needed. To make a salt-water mixture, completely dissolve ??1 tsp of salt in 1 cup of warm water. ? Keep all follow-up visits as told by your health care provider. This is important. ? Apply ice to the outside of your jaw if there is swelling. Do not put ice directly on the skin. Contact a health care provider if: ? Your pain is not controlled with medicines. ? Your symptoms get worse. ? You have new symptoms. Get help right away if you: ? Are unable to open your mouth. ? Are having trouble breathing or swallowing. ? Have a fever. ? Notice that your face, neck, or jaw is swollen. Summary ? Dental pain may be caused by many things, including tooth decay and infection. ? Your pain may be mild or severe. ? Take pmnh-kys-mnmsygr and prescription medicines only as told by your health care provider. ? Watch your dental pain for any changes. Let your health care provider know if symptoms get worse. This information is not intended to replace advice given to you by your health care provider. Make sure you discuss any questions you have with your health care provider. Document Released: 02/06/2006 Document Revised: 06/04/2019 Document Reviewed: 12/28/2017 [id number] Patient Education ? 2019 [id number] [facility] ED Patient Summaryon 022 ED Patient Summary (Inserted Image. Gena ble to display) [place] [id number] Patient Discharge Instructions Person Information Name: JENI JANE Age: 25 Years Arrival Date: 10/12/2021 12:27:46 Discharge Diagnosis: Odontalgia Primary Care Physician: Vania SIEGEL MD Provider Information Primary Provider: Sheldon Canas DO Advanced Equipment Service Engineer:Mario June PA-C The exam and treatment you received in the Emergency Department were for an urgent problem and are not intended as complete care. It is important that you follow up with a doctor, nurse practitioner, or physician?s baking assistant for ongoing care. If your symptoms become worse or you do not improve as expected and you are unable to reach your usual health care provider, you should return to the Emergency Department. We are available 24 hours a day. CLARENCEJENI Andreina has been given the following list of patient education materials, prescriptions and follow-up instructions: Follow-up Instructions: With: Address: When: Dental: [facility] [phone] In 3 days 10/15/2021 With: Address: When: Dental: [facility] [phone] In 3 days 10/15/2021 With: Address: When: Dental: [facility] [phone] In 3 days 10/15/2021 In the event that this physician does not participate in your insurance network, please consult with your insurance company to find a nearby participating provider. Patient Education Materials: Dental Pain A MESSAGE TO ALL PATIENTS REGARDING OPIOIDS PRESCRIPTION OPIOIDS: WHAT YOU NEED TO KNOW Prescription opioids can be used to help relieve pwssemyf-hi-ysplkp pain and are often prescribed following a surgery or injury, or for certain health conditions. These medications can be an important part of the treatment but also come with serious risks. It is important to work with your healthcare provider to make sure you are getting the safest, most effective care. WHAT ARE THE RISKS AND SIDE EFFECTS OF OPIOID USE? Prescription opioids carry serious risks of addiction and overdose, especially with prolonged use. An opioid overdose, often marked by slowed breathing, can cause sudden . The use of prescription opioids can have a number of side effects as well, even when taken as directed: ? Tolerance?meaning you might need to take more of the medication for the same pain relief ? Physical dependence?meaning you have symptoms of withdrawal when a medication is stopped ? Increased sensitivity to pain ? Constipation ? Nausea, vomiting, and dry mouth ? Sleepiness and dizziness ? Confusion ? Depression ? Low levels of testosterone that can result in lower sex drive, energy, and strength ? Itching and sweating RISKS ARE GREATER WITH: ? History of drug misuse, substance use disorder, or overdose ? Mental health conditions (such as depression or anxiety) ? Sleep apnea ? Older age (65 years and older) ? Avoid alcohol while taking prescription opioids. Also, unless specifically advised by your health care provider, medications to avoid include: ? Benzodiazepines (such as Xanax or Valium) ? Muscle relaxants (such as Soma or Flexeril) ? Hypnotics (such as Ambien or Lunesta) ? Other prescription opioids KNOW YOUR OPTIONS Talk to your health care provider about ways to manage your pain that don?t involve prescription opioids. Some of these options may actually work better and have fewer risks and side effects. Options may include: ? Pain relievers such as acetaminophen, ibuprofen, and naproxen ? Some medication that are also used for depression or seizures ? Physical therapy and exercise ? Cognitive behavioral therapy, a psychological, goal-directed approach, in which patients learn how to modify physical, behavioral, and emotional triggers of pain and stress. IF YOU ARE PRESCRIBED OPIOIDS FOR PAIN: ? Never take opioids in greater amounts or more often than prescribed. ? Follow up with your primary health care provider. o Work together to create a plan on how to manage your pain. o Talk about ways to help manage your pain that don?t involve prescription opioids. o Talk about any and all concerns and side effects. ? Help prevent misuse and abuse o Never sell or share prescription opioids. o Never use another person?s prescription opioids. ? Store prescription opioids in a secure place and out of reach of others (this may include visitors, children, friends, and family). ? Safely dispose of unused prescription opioids: Find your community drug take-back program or your pharmacy mail-back program, or flush them down the toilet, following guidance from the Food and Drug Administration (www.fda.gov/Drugs/ResourcesF orYou). ? Visit www.cdc.gov/drugoverdose to learn about the risks of opioids abuse and overdose. ? If you believe you may be struggling with addiction, tell your health ca (more content not included)... [facility] COVID-19 ([facility]on 09-23-2021 SARS-CoV-2 (COVID-19) RNA MELO+probe Ql (Resp) Not detected Normal Not Detected [facility] Comment on above: Result Comment: This test result should be correlated with clinical presentations and medical history by a healthcare provider to determine its clinical significance. This assay was performed by a reverse transcriptase real-time polymerase chain reaction (rt PCR) method on the [employer] system. This test has been authorized only for the detection of nucleic acid from SARS-CoV-2, not for any other viruses or pathogens. This test has not been FDA cleared or approved. This test has been authorized by FDA under an Emergency Use Authorization (EUA). This test is only authorized for the duration of time the declaration on that circumstances exist justifying the authorization emergency use of in vitro diagnostic tests for detection and/or diagnosis of COVID-19 infection under section 564 (b) (1) of the Act, 21 U.S.C. 360 bbb-3 (b) (1), unless authorization is terminated or revoked sooner. Performed By: #### 2 [id number] #### [facility] [address] [place] [address] SARS-CoV-2 (COVID-19) RNA MELO+probe Ql (Unsp spec) Pass Normal Pass [facility] Comment on above: Performed By: #### 2 [id number] #### [facility] [address] [place] [address] Specimen source Nom (Unsp spec) Nasal [facility] Comment on above: Performed By: #### 2 [id number] #### [facility] [address] [place] [address] Coding Summary.on 09-23-2021 Coding Summary. CD:[id number] Gh0bWw+PG hlYWQ+GX1FNLZkC02crPCbhU4SC1b FKT9ZEAIMEXDZTL3MJO3nmZY6MVgk B7CyouQo AiypuNWgNR42MWq4FQQ9cCtuJVmtk Z5mfMTpE8k9ZnNyHY20bP13UErbHB XqOeF3FaXjjjzwlLJg A4htHrOvoDUpZuz+PHRhYmxlIHdpZ GXaIPuuIGZcWjPgdFuaCH1hLy1yKJ VyLWNvbGxhcHNlOiBj e2rtWKPvEWgcEO9npLqvB9QabWN3B SNyq7g7Vd51vOJ+IPFyPZD5vAcrLP ayq305WhUeq1bnBLO1 lQViHAbuVBV4B65md6C4XMVcVXOhD OL4kPU8yI2hwBgajymkB9VjiFHtUe R3JSD4sVQttO9qcQwl suksqV3xTvz+Y38VUA7AQNMQKC0PZ dd0H4ObWvdqiDF+EB39VUSmEU48zK BcaXLdf8wraYe1GlDi SHJlMZM8dGttZFdal9WbSVUkE79bp MEyx4O5VCMcqDqqgJAhAvPfaTU0qK 0jQVofnmmec1wesfon Gesdj0fugb56iO76W99dNAgqSOFoI XS4PXKkOLXkqLjvhz4hfN4mZz7+ID kqm9rji5wmmYt9WqMf EUBdchEaqLprDFL4s2UiDh55C2Xou Knqx5GvOyj2zo13gFMpu0D7iHS2GB iiWYRkgS0kJMnlLrM3 ADMpWkIakT34hZLhFUgaCn3hrUcnz GtsUY1uQSFrkyhbCJDrhD3aEVEoeM GkpUfzHW3mZULmhkka g081IvOsFPW6MBFkkLXfW9IwnF3wL uKwVSWsUAVwR4KgrCKuWXdeD245LB jdVuQ1JXTazfZjP7Oq EMEzoLyePgI0x6J8Ru3Xj0EqhrguV IY7DKryVMR9DhF8DyRqYqY3F3OuKt d9QBInxNtfIK8nB3Vu BFNgecstryzdmKW7GPRqELKpgK78v CDyUPgkEg6kq9C3b595ILUzSPIzzY 47Lx9bbGtzCROvfMUF aS8boztfn6slmzjhTlLgIPTtICc9D Zb4JAFcoAgrHcIdFRZ4YiI3URE8pM XyzB5wbEdspmpurJ9m Oyc+R98gkF3vEWG4TXZ2rbcpWICbk iGgGU11PX54E2GbDteegTDqbTP+PG HnhqCmxRxuDH8xHlEz j3nvn1SuFXtmM2RcBPRoFByqHmx2F TNvLEI0uTV7dX5iJVHyKEewx7G3tK E3M2LeplTshb8ed2xf JUOqSRiqP99eqSHcn7U3HGXelDM6J IBgjTvgMxOsrW88Trt+PGNvbGdyb3 TxSdumv6wlr9qupXt5 DlAqXDFjhsFboPhgWMJ9w6QmDf14J 29sIHdpZHRoPSIxNSUiIHZhbGlnbj 4wbA7bRb0+PGNvbCB3 tWO0cU0gCALeClV0KTneQ015MbHdh TUlCfsph3vwp2ekiWx0IfKiOCYcdh HecIxqGCZ8m3EiFw47 E11vUHnrLBFsDDLjJFKxGSKanDdgv q6xjS6nLz0+HF9xb3yand78dH34lQ I+JHQjOPD4pCjcQKcv ETQrlA6kVGrjJwN4KTGaTcBedC96y LNrBNknVa8pfUwtmBjhRC0jJQAlkl vvp991VaGdb6xrKLWh sMLdAQlkZKD2Q95mt8K2ZEDxCPNdQ GA9rQR6eP9bwFawddswvLFmeCpnce VjbAhrSJouSNhmY813 MYPtvVyhWcKvpAozyqVfGbAfWBq9V 0KtGdr2XIPmaTwhBX4teTAgEBbyZo 8tqIelwKkdFI1xJRKx tmksb368EnRrl7raLQMgcBVcJPggK WD6L33ws7X1MVMmRLYrCKO6zRY8zM 1hbGlnbjogbGVmdDsg eeMnyKkaYUxdJTgyF635VLCivLkwE iVzxfMeBAGuxQX8ML71BB06dWIxo3 D3xPQ6M1IaAPWaruyc ocivePJ5NGUzUGNzfD65Fp8ckNneA a7fWEKtKSU5SZNxlARqH5ZsoB2hHv LdJHNjPVUzO8IetINy JHgcO944OFckDbW9JOYoccWoH8HdM SXlmLwpZhB9v8A8Oo3AA4V3IX87TW 32pYXol5H6bXM7A9Wj XKPvlxjyaijliVK4ZWJxBQMxjP56F y2xpZzsUl4hMAUvKZN3NNClhWAsK9 OacZ4rQrDvMLXgTSVa X5VgoIUfNFycD918GHkbTnH8DTSws fVhM9OsQAIxiWitVtF1h4I0Pl9ICW f0KM59OE46oASuj2M8 eBH0Q9KsOOVywslpnfgxoRC1UYDnH AXdrV19Uh8cwSyfTk4oIXJmRDO0YT MriOKsM0VodD5gZlEu UIBdAJQcW5MwuDPjZCzqG141FYjgN dQ1SOObllByG8YdLOFrlIyxXcH3m1 Y5Yk6LOMZsSV01OGE0 rQR3DT97OU23I1MeRnbpmSTlfGD+P HRhYmxlIHdpZHRoPScxMDAlJyBzdH szTR4tLu2iECVoZKLs mDzriDOkIqHgk8ikZFEtTWkrIM5cg XnkL2FpcMI9VFAie2l5Zj38J66zC1 JvdXA+VQYwyPG0bAT3 nT8xJvJwNoJ5PAhcA272LdVbhTNqM ahrf2knx4nxkVj3GrW6DBRhtuLpeY bqZHH7f9ZkGa88H03i NDixZSOnGTTcQRUfRXHfyDkfgu7jd G9wIi8+IGFoqWB3vVQ4wE4zIxNqFr D7ZFtuU867GaPqrSJr Qospp0jwv2wovCu9WyGaTIWuicZah UwzBYX7a1ZlCp90N3SewOxmk2CgWb t8rd99xGLfy3Y0wCK8 E1XjPFDgaxzqmTRtfDgqFO3vTSKib gksNZJkrO6sPFOjB6r4TySiQvT9AG zcO6VgbnM7IPYmnLLc TEdkAGS8F68jt5Q2SMWuYBRaMQI0x RJ4kU6yaXgwnlydbRXdrMpicdPgoM qsENkzDJlpQ431SYNr xPqiCWSlrV0mPVFezOVgzXbuGA7iM TBpbjsnPkFDUkVFLCBKRVdFTEwgUj wvdGQ+BNVcLJS7pYap ZLpoIRIapR7eNGXgE9x2SvYjKbK2V GmuG4FlEYTtdrovSe89bO9jFjXhQn S4NJeeM8FttqN1FABg hCPxZBmrZKB4H82vl7P4QCNpBQIdF XU7mQI6tN2btDppwpsggUCugKpnvz RqfNtpLZiwEUokH408 DAJbpOgiKqFmPuUoNzM7JYw7R2KqJ qt5PKNrnRgqLW7ogEZkZLcrHl8ouC rvhIcdAZ5iGTEypikd HTHtdY7gMBIesMUoqNxtLN0hVTEpr ztud284VrWxPWF3ZOQywZTsH7TiyW 2fMfTlXRRuRCNpX3Oy nMPuPZorZ043QTpvXrL1MTDvilYhV 4OhWGUxxDwiMdH4e3Z9Rk4sZTFPGQ FyczwvdGQ+PHRkIHN0 yHqiDMswRJVpbM6yRLMeH4m8ShWzG cY2BLncD9FdNNOfunarWp17oZ1vWs IeEzU9WMxcS1TcrjQ0 SZCnqCAgSUolBDS1A62gq9P4SLNdR ZDzFAO9zPF2zB7lrWniwlrrzFBikK sgdmVydGljYWwtYWxp O616YLMctGgkLgZeoJZvOLvqzBA+P TCeMLC9lEepKLdfSNRemY4vNKXgD5 w6DsUcHiQ8SDhfT0Rh JEYnihlnMi44yN3hWdXcJxN9JOkmP 5SdgoZ2ORMseGLeDLsfPCC2L06wo2 B2NZGxUNDgENS2vGT6 sN5jmJxmkfaynOAmtMjibmWvxQpjM DmgIPruQ553AMOjjVsaQcJsNTQbOG 5jeTwvdGQ+WB00ot43 T9SgYuzqIbd8DYXeMXU8cON2sN1eJ KVzTMnao0R4mAH8X9HfcxQxpq3pa4 znTGQwLSxcZ77veSHy s3F8LDPvyIZ4VAXglEkkUrQhhG15K yc+TQJypCtve1SuFvxmh1cym3fkaV o3YmKwISKybgRbfElh IXM4k1QgLd48O07lIXijWTAwPIRgT KWyWPWubMxaxl0xbQ5rUq0+PGNvbC R0oEE8gF7fRtDpMbX8 LAwkD152BiKskAIyCbepf2ksg0cii Xr4GlMkPVGzwaGseRbxXXL9k5DfTe 81X7QuxYjfr3YjYnf1 ss93cUFwf8C0pDL3S7FuYQQlypjpo SZfcObsNK7nBRHxoeqgPNVgsS9xQO PvS4s5WqEhQsW7XNmo Y4CcsjL1SFLbjYZsTZRimWVTwZ4jp mryd9sqwuexXcIpWLCtKRe4XFm5FH CenGdsLnElICQ3DaZ0 IJF1tMUhoO0ggAkoczotgP4gGqt+U Nh7a6mkvFJtZC2dmGL6OE72XI13fL Hlx3O2dXC5L0PkTQRg yakrclwxeRX5PDTdEQYlvK27Wy7pq ZcmQt4jGYEiLEK4PTDjuTNkB8JgyA 5fCtBaRCSrCLDhW1Oy aWPlSRqxY028GJrzApD3NHHkgbAfR 2KeVKAcyNeyKuV0q9I2Su0PAA75TQ 61XV22mVEyq5K6cED2 O0PjQBOwytnrhlvivMO1VXXyREUrp G30Da8aoKkeGd9hVAGfEFB0ALJsiB JtB0YfjY7fGwAtBVLz CPViY0NwmWFwSCkmT068JSddPrE4Q VXyadKoI9WcUJXqvIlnUqR5b6T2Bq 7EPq62HU28YF57tQUv o0D8iQM6I3OaOJDwcrrealxfqRF3L MYmKAOiqE68Mv9tqGklEb5pHZApTK [id number] OyZeMIIeHTTjX2BcfFPdXNdiB458Q WtiRvT1ZWPtlyVlA4MgRZStoRkbNa D2e5Y9Mi1ADYqmzkq1 I6KtKrqmkXM+JV58CMPdUM15gNGye OHas5vbmWt6NiYaBZDyGZS6yAbdBZ ppu2YbVWTyT73lkRBa c2U6 (more content not included)... [facility] COVID-19 [place]on 09-22-2021 ADMITTED TO INTENSIVE CARE UNIT FOR CONDITION OF INTEREST:FIND:PT: NO [facility] Comment on above: Performed By: #### 2 [id number] #### [facility] [address] [id number] EMPLOYED IN A HEALTHCARE SETTING:FIND:PT: NO [facility] Comment on above: Performed By: #### 2 [id number] #### [facility] [address] [place] [address] FIRST TEST FOR CONDITION OF INTEREST:FIND:PT: NO [facility] Comment on above: Performed By: #### 2 [id number] #### [facility] [address] [place] [address] HAS SYMPTOMS RELATED TO CONDITION OF INTEREST:FIND:PT: YES [facility] Comment on above: Performed By: #### 2 [id number] #### [facility] [address] [place] [address] HOSPITALIZED FOR CONDITION OF INTEREST:FIND:PT: NO [facility] Comment on above: Performed By: #### 2 [id number] #### [facility] [address] [place] [address] STATUS:FIND:PT: NO [facility] Comment on above: Performed By: #### 2 [id number] #### [facility] [address] [place] [address] RESIDES IN A CONGREGATE CARE SETTING:FIND:PT: NO [facility] Comment on above: Performed By: #### 2 [id number] #### [facility] [address] [place] [address] Consent for Treatmenton Consent for Treatment [id number]:127 [facility] Discharge Instructionson Discharge Instructions [id number]:127 [facility] ED Clinical Summaryon 2021 ED Clinical Summary (Inserted Image. Gena ble to display) [place] [address] ED Clinical Summary Person Information Name: JENI JANE/[facility] Age: 25 Years : 1995 Sex: Female Language: Ukrainian PCP: Vania SIEGEL MD Marital Status: Phone: [phone] Visit Id: Visit Reason: Throat pain - Adult; Nasal drainage; Cough; COUGH, RUNNY NOSE, HEADACHE Speciality: Acuity: 4 Enc Type: Emergency Med Service: Emergency Arrival: 09/22/2021 18:10:52 Discharge: 09/22/2021 18:47:27 LOS: 000 00:37 Checkin: 09/22/2021 18:10:52 Checkout: 09/22/2021 18:47:27 Dispo Type: Home (Routine DC) EVENTS: Event Name Event Status Request Date/Time Start Date/Time Complete Date/Time Arrive Complete 09/22/2021 18:10:52 09/22/2021 18:10:52 09/22/2021 18:10:52 Document Home Meds Request 09/22/2021 18:10:52 Triage Complete 09/22/2021 18:10:52 09/22/2021 18:17:25 09/22/2021 18:17:25 Bed Assign Complete 09/22/2021 18:17:52 09/22/2021 18:17:52 09/22/2021 18:17:52 Dr Exam Complete 09/22/2021 18:17:52 09/22/2021 18:18:58 09/22/2021 18:18:58 RN Exam Complete 09/22/2021 18:17:52 09/22/2021 18:53:51 09/22/2021 18:53:51 Registration Complete 09/22/2021 18:18:58 09/22/2021 18:33:02 09/22/2021 18:33:02 Pending Labs Request 09/22/2021 18:23:22 Lab Request 09/22/2021 18:23:22 Discharge Complete 09/22/2021 18:27:29 09/22/2021 18:55:39 09/22/2021 18:55:39 Reg Complete Request 09/22/2021 18:33:02 Reg Bed Request Complete 09/22/2021 18:33:02 09/22/2021 18:33:02 09/22/2021 18:33:02 Transfer Complete 09/22/2021 18:55:39 09/22/2021 18:55:39 09/22/2021 18:55:39 ADDRESS: [address] [place] [id number] PHYS DOC NOTES: MEDICAL INFORMATION: Prescriptions Given: New Medications [facility] 1985, [address] [facility] [place], [place] [id number], [phone] albuterol (Albuterol (Eqv-ProAir HFA) 90 mcg/inh inhalation aerosol) 2 Puffs Inhalation every 4 hours as needed Cough and Congestion. Refills: 0. predniSONE (predniSONE 20 mg Tab) 3 Tablets By Mouth every day for 5 Days. Refills: 0. Medications to Continue with No Changes Other Medications multivitamin, ( Multivitamins) 1 Tablets By Mouth every day. naproxen (naproxen 500 mg Tab) 1 Tablets By Mouth 2 times a day. with food. Refills: 0. ondansetron (Zofran ODT 4 mg Tab-Dis) 1 Tablets By Mouth every 6 hours. Refills: 0. PATIENT EDUCATION INFORMATION: Instructions: Acute Bronchitis, Adult Follow up: With: Address: When: Lacho Link Susie Dunham, [facility] [address] [place] [address] Business (1) In 3 days 09/25/2021 Comments: Call the office of your primary care doctor to arrange for follow-up within the above-stated timeframe. Follow-up with your primary care doctor about this ED visit. You should review your labs, imaging, and diagnoses from this ED visit with your primary care physician. If you were prescribed medications you should discuss possible side-effects and drug interactions with your pharmacist. Call 911 or go to the nearest Emergency Department if you develop any new or worsening symptoms. Seek immediate medical attention if you develop: worsening shortness of breath, difficulty breathing, chest pain, nausea, vomiting, weakness, numbness, tingling, excessive sweating, loss of motion in your arms or legs, or any new or worsening symptoms. DIAGNOSIS: Acute bronchitis; Acute upper respiratory infection [facility] ED Note-Physicianon 09-23-19 22 ED Note-Physician Basic Information Time Seen: Richard Rosas DO 09/22/2021 18:18 Chief Complaint pt c/o cough, wheezing, running nose, sore throat for three days. denies fevers. History of Present Illness 25-year-old female to the emergency department chief complaint of cough, wheezing, rhinorrhea, sore throat that is been ongoing for 3 days. Her daughter has similar symptoms. She reports a history of bronchitis with similar symptoms today. She denies a history of asthma or COPD. She denies any chest pain or shortness of breath. No aggravating or alleviating factors. No therapies tried at home. Review of Systems A 10 point review of systems is negative except as noted above. Medical and Surgical History: Reviewed and noted Social history: Lives at home Tobacco: Denies Physical Exam Vitals & Measurements T: 36.9 ?C(Oral) HR: 95(Peripheral) RR: 16 BP: 108/71 SpO2: 98% HT: 160 cm HT: 160.0 cm WT: 80 kg WT: 80.0 kg BMI: 31.25 VITALS: I have reviewed the triage vital signs. GENERAL: Well developed, well appearing adult in no acute distress. NEURO: Alert and oriented. Moves all extremities. Face is symmetric and expressive. EYES: PERRL. No scleral icterus or conjunctival injection. No discharge. HENT: Normocephalic, atraumatic. Hearing is grossly intact. Nares grossly patent and without discharge. Mucous membranes moist. NECK: No JVD. Patient moves neck without restriction. CARDIO: Rhythm regular. Normal rate. No murmur, rub, or gallop. Pulses equal bilaterally in the upper and lower extremity. No lower extremity edema. PULM: Lungs clear to auscultation in all nascimento. Trace wheezes. No conversational dyspnea. No splinting, stridor, or accessory muscle use. GI/: Abdomen is soft and non-tender. Normoactive bowel sounds. EXTREMITIES: Symmetric muscle bulk. No joint swelling. No clubbing, cyanosis, or deformity. SKIN: Warm and dry. Normal turgor. No rash or lesions appreciated. PSYCH: Mood, affect, and interaction is appropriate to the setting. Medical Decision Making 25-year-old female to the emergency department chief complaint of URI symptoms. Vital stable, the patient is afebrile. She has very trace wheezing. Believes represents bronchitis in the setting, no focal lung findings to suggest pneumonia. COVID test will be performed. She will be treated empirically as bronchitis. Albuterol and prednisone are prescribed. Return precautions were discussed. All questions were answered. The patient was discharged home. Assessment/Plan Acute bronchitis (J20.9: Acute bronchitis, unspecified) Acute upper respiratory infection (J06.9: Acute upper respiratory infection, unspecified) Orders: albuterol, 2 puff(s), Inhalation, q4hr Cough and Congestion, 8.5 gm, Refill(s) 0, [facility], 160, cm, 09/22/21 18:17:00 EDT, Height/Length Dosing, 80, kg, 09/22/21 18:17:00 EDT, Weight Dosing predniSONE, 60 mg = 3 tab(s), Oral, Daily, X 5 day(s), # 15 tab(s), Refills(s) 0, Pharmacy: [facility] 1984, 160, cm, 09/22/21 18:17:00 EDT, Height/Length Dosing, 80, kg, 09/22/21 18:17:00 EDT, Weight Dosing COVID-19 ([facility] Disposition Plan Patient Discharge Condition Stable Discharge Disposition Home Discharge Prescription List Prescriptions Albuterol (Eqv-ProAir HFA) 90 mcg/inh inhalation aerosol, 2 puff(s), Inhalation, q4hr, PRN predniSONE 20 mg Tab, 60 mg= 3 tab(s), Oral, Daily Follow-up With When Contact Information Lacho Link In 3 days 09/25/2021 EDT [address], [address] [place] [address] Business (1) Additional Instructions: Call the office of your primary care doctor to arrange for follow-up within the above-stated timeframe. Follow-up with your primary care doctor about this ED visit. You should review your labs, imaging, and diagnoses from this ED visit with your primary care physician. If you were prescribed medications you should discuss possible side-effects and drug interactions with your pharmacist. Call 911 or go to the nearest Emergency Department if you develop any new or worsening symptoms. Seek immediate medical attention if you develop: worsening shortness of breath, difficulty breathing, chest pain, nausea, vomiting, weakness, numbness, tingling, excessive sweating, loss of motion in your arms or legs, or any new or worsening symptoms. Patient Education Acute Bronchitis, Adult Problem List/Past Medical History Ongoing Acute low back pain BMI 31.0-31.9,adult Obesity due to excess calories Smoker Tobacco user Historical Medications Inpatient No active inpatient medications Home Albuterol (Eqv-ProAir HFA) 90 mcg/inh inhalation aerosol, 2 puff(s), Inhalation, q4hr, PRN naproxen 500 mg Tab, 500 mg= 1 tab(s), Oral, BID predniSONE 20 mg Tab, 60 mg= 3 tab(s), Oral, Daily Multivitamins, 1 tab(s), Oral, Daily Zofran ODT 4 mg Tab-Dis, 4 mg= 1 tab(s), Oral, q6hr Allergies No Known Allergies No Known Medication Allergies Social History Alcohol - Den (more content not included)... [facility] Comment on above: Result Comment: Elec tronically Signed By: Richard Rosas DO\.br\Date and Time Signed: 09/22/21 18:39 EDT ED Patient Education Noteon 09-22-2021 ED Patient Education Note Pulmonary Medicine Acute Bronchitis, Adult Acute bronchitis is sudden (acute) swelling of the air tubes (bronchi) in the lungs. Acute bronchitis causes these tubes to fill with mucus, which can make it hard to breathe. It can also cause coughing or wheezing. In adults, acute bronchitis usually goes away within 2 weeks. A cough caused by bronchitis may last up to 3 weeks. Smoking, allergies, and asthma can make the condition worse. Repeated episodes of bronchitis may cause further lung problems, such as chronic obstructive pulmonary disease (COPD). What are the causes? This condition can be caused by germs and by substances that irritate the lungs, including: ? Cold and flu viruses. This condition is most often caused by the same virus that causes a cold. ? Bacteria. ? Exposure to tobacco smoke, dust, fumes, and air pollution. What increases the risk? This condition is more likely to develop in people who: ? Have close contact with someone with acute bronchitis. ? Are exposed to lung irritants, such as tobacco smoke, dust, fumes, and vapors. ? Have a weak immune system. ? Have a respiratory condition such as asthma. What are the signs or symptoms? Symptoms of this condition include: ? A cough. ? Coughing up clear, yellow, or green mucus. ? Wheezing. ? Chest congestion. ? Shortness of breath. ? A fever. ? Body aches. ? Chills. ? A sore throat. How is this diagnosed? This condition is usually diagnosed with a physical exam. During the exam, your health care provider may order tests, such as chest X-rays, to rule out other conditions. He or she may also: ? Test a sample of your mucus for bacterial infection. ? Check the level of oxygen in your blood. This is done to check for pneumonia. ? Do a chest X-ray or lung function testing to rule out pneumonia and other conditions. ? Perform blood tests. Your health care provider will also ask about your symptoms and medical history. How is this treated? Most cases of acute bronchitis clear up over time without treatment. Your health care provider may recommend: ? Drinking more fluids. Drinking more makes your mucus thinner, which may make it easier to breathe. ? Taking a medicine for a fever or cough. ? Taking an antibiotic medicine. ? Using an inhaler to help improve shortness of breath and to control a cough. ? Using a cool mist vaporizer or humidifier to make it easier to breathe. Follow these instructions at home: Medicines ? Take sewx-wrz-vlspmhu and prescription medicines only as told by your health care provider. ? If you were prescribed an antibiotic, take it as told by your health care provider. Do not stop taking the antibiotic even if you start to feel better. General instructions ? Get plenty of rest. ? Drink enough fluids to keep your urine pale yellow. ? Avoid smoking and secondhand smoke. Exposure to cigarette smoke or irritating chemicals will make bronchitis worse. If you smoke and you need help quitting, ask your health care provider. Quitting smoking will help your lungs heal faster. ? Use an inhaler, cool mist vaporizer, or humidifier as told by your health care provider. ? Keep all follow-up visits as told by your health care provider. This is important. How is this prevented? To lower your risk of getting this condition again: ? Wash your hands often with soap and water. If soap and water are not available, use hand rn hospice. ? Avoid contact with people who have cold symptoms. ? Try not to touch your hands to your mouth, nose, or eyes. ? Make sure to get the flu shot every year. Contact a health care provider if: ? Your symptoms do not improve in 2 weeks of treatment. Get help right away if: ? You cough up blood. ? You have chest pain. ? You have severe shortness of breath. ? You become dehydrated. ? You faint or keep feeling like you are going to faint. ? You keep vomiting. ? You have a severe headache. ? Your fever or chills gets worse. This information is not intended to replace advice given to you by your health care provider. Make sure you discuss any questions you have with your health care provider. Document Released: 03/16/2005 Document Revised: 12/20/2018 Document Reviewed: 07/27/2016 [id number] Patient Education ? 2019 [employer]. [facility] ED Patient Summaryon 022 ED Patient Summary (Inserted Image. Gena ble to display) [address] [address] Patient Discharge Instructions Person Information Name: JENI JANE Age: 25 Years Arrival Date: 09/22/2021 18:10:52 Discharge Diagnosis: Acute bronchitis; Acute upper respiratory infection Primary Care Physician: ROBBIN BECKMAN, Vania Murphy Provider Information Primary Provider: Richard Rosas DO Advanced Equipment Service Engineer:None The exam and treatment you received in the Emergency Department were for an urgent problem and are not intended as complete care. It is important that you follow up with a doctor, nurse practitioner, or physician?s baking assistant for ongoing care. If your symptoms become worse or you do not improve as expected and you are unable to reach your usual health care provider, you should return to the Emergency Department. We are available 24 hours a day. JENI JNAE has been given the following list of patient education materials, prescriptions and follow-up instructions: Follow-up Instructions: With: Address: When: [address] [facility] [address] [place] [address] [facility] (1) In 3 days 09/25/2021 Comments: Call the office of your primary care doctor to arrange for follow-up within the above-stated timeframe. Follow-up with your primary care doctor about this ED visit. You should review your labs, imaging, and diagnoses from this ED visit with your primary care physician. If you were prescribed medications you should discuss possible side-effects and drug interactions with your pharmacist. Call 911 or go to the nearest Emergency Department if you develop any new or worsening symptoms. Seek immediate medical attention if you develop: worsening shortness of breath, difficulty breathing, chest pain, nausea, vomiting, weakness, numbness, tingling, excessive sweating, loss of motion in your arms or legs, or any new or worsening symptoms. In the event that this physician does not participate in your insurance network, please consult with your insurance company to find a nearby participating provider. Patient Education Materials: Acute Bronchitis, Adult A MESSAGE TO ALL PATIENTS REGARDING OPIOIDS PRESCRIPTION OPIOIDS: WHAT YOU NEED TO KNOW Prescription opioids can be used to help relieve fhlhygun-zg-gfceln pain and are often prescribed following a surgery or injury, or for certain health conditions. These medications can be an important part of the treatment but also come with serious risks. It is important to work with your healthcare provider to make sure you are getting the safest, most effective care. WHAT ARE THE RISKS AND SIDE EFFECTS OF OPIOID USE? Prescription opioids carry serious risks of addiction and overdose, especially with prolonged use. An opioid overdose, often marked by slowed breathing, can cause sudden . The use of prescription opioids can have a number of side effects as well, even when taken as directed: ? Tolerance?meaning you might need to take more of the medication for the same pain relief ? Physical dependence?meaning you have symptoms of withdrawal when a medication is stopped ? Increased sensitivity to pain ? Constipation ? Nausea, vomiting, and dry mouth ? Sleepiness and dizziness ? Confusion ? Depression ? Low levels of testosterone that can result in lower sex drive, energy, and strength ? Itching and sweating RISKS ARE GREATER WITH: ? History of drug misuse, substance use disorder, or overdose ? Mental health conditions (such as depression or anxiety) ? Sleep apnea ? Older age (65 years and older) ? Avoid alcohol while taking prescription opioids. Also, unless specifically advised by your health care provider, medications to avoid include: ? Benzodiazepines (such as Xanax or Valium) ? Muscle relaxants (such as Soma or Flexeril) ? Hypnotics (such as Ambien or Lunesta) ? Other prescription opioids KNOW YOUR OPTIONS Talk to your health care provider about ways to manage your pain that don?t involve prescription opioids. Some of these options may actually work better and have fewer risks and side effects. Options may include: ? Pain relievers such as acetaminophen, ibuprofen, and naproxen ? Some medication that are also used for depression or seizures ? Physical therapy and exercise ? Cognitive behavioral therapy, a psychological, goal-directed approach, in which patients learn how to modify physical, behavioral, and emotional triggers of pain and stress. IF YOU ARE PRESCRIBED OPIOIDS FOR PAIN: ? Never take opioids in greater amounts or more often than prescribed. ? Follow up with your primary health care provider. o Work together to create a plan on how to manage your pain. o Talk about ways to help manage your pain that don?t involve prescription opioids. o Talk about any and all concerns and side effects. ? Help prevent misu (more content not included)... [facility] Hemoglobinon 09-25-2019 Hemoglobin (Bld) [Mass/Vol] 10.5 g/dL Low 12 - 16 g/dL [facility] Interpretation and review of laboratory results Abnormal [facility] CBCon 09-23-2019 Erythrocyte distribution width (RBC) [Entitic vol] 13.6 % 11.6 - 14.8 % [facility] Hematocrit (Bld) [Volume fraction] 36.5 % 36 - 46 % [facility] Hemoglobin (Bld) [Mass/Vol] 12.4 g/dL 12 - 16 g/dL [facility] Interpretation and review of laboratory results Abnormal [facility] MCH (RBC) [Entitic mass] 30.9 pg 26 - 34 pg [facility] MCHC (RBC) [Mass/Vol] 34.0 g/dL 31 - 37 g/dL [facility] MCV (RBC) [Entitic vol] 91.0 fL 80 - 100 fL [facility] Nucleated RBC (Bld) [#/Vol] 0.00 10*3/uL [facility] Nucleated RBC/100 WBC (Bld) [Ratio] 0.0 % [facility] Platelet mean volume (Bld) [Entitic vol] 11.1 fL 9.4 - 12.4 fL [facility] Platelets (Bld) [#/Vol] 266 10*3/uL [facility] RBC (Bld) [#/Vol] 4.01 10*6/uL [facility] ealth WBC (Bld) [#/Vol] 13.04 10*3/uL [facility] SCAN OTHER ORDERSon 09-23-19 20 Ordered by an unspec ified provider. [facility] Type and Screenon 09-23-2019 ABO and Rh group Nom (Bld) A Positive [facility] Blood group antibody screen Ql Negative [facility] Specimen Expires 09/26/2019 23:59 EST [facility] Rupture of Membranes ( Pema/Rosalie Only)on 08-09-2019 Interpretation and review of laboratory results Normal [facility] Rupture of Membranes Negative Negative [facility] URINALYSISon 08-09-2019 Bacteria Auto Ql (U) None Seen None Seen /hpf [facility] Bilirubin Ql (U) Negative Negative [facility] th Clarity Refractometry automated (U) Hazy Abnormal Clear [facility] Color (U) Yellow Colorless, Yellow [facility] Crystals.amorphous Computer assisted (U) [#/Area] Few Abnormal None Seen, Rare /hpf [facility] Epithelial cells.squamous Auto (Urine sed) [#/Area] 1 [facility] Glucose Auto test strip (U) [Mass/Vol] Negative Negative mg/dL [facility] Hemoglobin Auto test strip Ql (U) Negative Negative [facility] Interpretation and review of laboratory results Abnormal [facility] Ketones (U) [Mass/Vol] Negative Negative mg/dL [facility] Leukocyte esterase Auto test strip Ql (U) Negative Negative [facility] Mucus Auto (Urine sed) [#/Area] Rare None Seen, Rare /lpf [facility] Nitrite Auto test strip Ql (U) Negative Negative [facility] pH (U) 6.0 [pH] [facility] Protein (U) [Mass/Vol] Negative Negative mg/dL [facility] Specific gravity (U) [Rel density] 1.015 [facility] Urobilinogen (U) [Mass/Vol] <2.0 <2.0 mg/dL [facility] WBC Auto (Urine sed) [#/Area] 3 [facility] Microscopic examinat ion is performed on all urinalysis samples and only positive findings are reported. The test for blood on the chemical analytic portion of urinalysis may also be positive due to hemoglobinuria and myoglobinuria and if red blood cells are present they are quantified by microscopic examination. [facility] Cult,Urineon 05-05-2019 Cult,Urine Specimen Description .CLEAN CATCH URINE Special Requests NOT REPORTED Culture NO SIGNIFICANT GROWTH Report Status FINAL 05/04/2019 Normal [facility] Comment on above: Performed By: #### U #### [employer] [address] [place] [address] Resident Manager: Skyler Enciso MD [facility] [address] [place] [address] Resident Manager: Jam Taveras MD HCG, Quanton 12-12-2018 HCG, Quant <1 Normal <5 [facility] Comment on above: Result Comment: Non-preg premeno <=5 Postmeno <=8 Male <=3 If HCG results do not concur with clinical observations, additional testing to confirm results is recommended. Elevated results not associated with may be found in patients with other diseases such as tumors of the germ cells (testis, ovaries, etc.), bladder, pancreas, stomach, lungs, and liver. Performed By: #### B HCG #### [facility] [address] [place] [address] Resident Manager: Jam Taveras MD TYPE AND SCREENon 1 ABO/Rh Positive [place], [place] Type + Scrnon 12-12 Type + Scrn Negative Normal [facility] Comment on above: Performed By: #### P RTYS #### [facility] [address] [place] [address] Resident Manager: Jam Taveras MD hCG, Quantitative, on 12-12-2018 hCG Quant <1 <5 IU/L [place], [place] Comment on above: Non-preg premeno <=5 Postmeno <=8 Male <=3 If HCG results do not concur with clinical observations, additional testing to confirm results is recommended. Elevated results not associated with may be found in patients with other diseases such as tumors of the germ cells (testis, ovaries, etc.), bladder, pancreas, stomach, lungs, and liver. Cult,Urineon 09-30-2018 Cult,Urine Specimen Description .URINE, MIDSTREAM Special Requests NOT REPORTED Culture NO GROWTH Report Status FINAL 09/30/2018 Normal [facility] Comment on above: Performed By: #### U RC #### [facility] [address] [place] [address] Resident Manager: Skyler Enciso MD [facility] [address] [place] [address] Resident Manager: Jam Taveras MD HCG, ,Urineon 09-29 Beta HCG ( test) Ql (U) Negative Normal NEG [facility] Comment on above: Performed By: #### U HCG, UA, UMICAO #### [facility] [address] [place] [address] Resident Manager: Jam Taveras MD Microscopic Urinalysison Amorphous, UA NOT REPORTED None [place] Bacteria, UA 1+ Abnormal None [place] Casts UA NOT REPORTED /LPF [place] Crystals UA NOT REPORTED None /HPF [place] Epithelial Cells UA 0 TO 2 /HPF [place] Interpretation and review of laboratory results Abnormal [place] Mucus, UA NOT REPORTED None [place] Other Observations UA NOT REPORTED NOT REQ. [place] RBC (U) [#/Vol] 10 TO 20 [place] Renal Epithelial, Urine NOT REPORTED 0 /HPF [place] Trichomonas, UA NOT REPORTED None [place] WBC, UA 20 TO 50 0 /HPF [place] Yeast, UA NOT REPORTED None [place] , Urineon 9 Beta HCG ( test) Ql (U) Negative NEGATIVE [place] Urinalysison 09-29-2018 Bilirubin Urine Negative NEGATIVE [place] Color, UA YELLOW YELLOW [place] Glucose, Ur Negative NEGATIVE [place] Interpretation and review of laboratory results Abnormal [place] Ketones Ql (U) TRACE Abnormal NEGATIVE [place] Leukocyte esterase Test strip Ql (U) 3+ Abnormal NEGATIVE [place] Nitrite, Urine Negative NEGATIVE [place] pH, UA 6.0 [place] Protein (U) [Mass/Vol] 3+ Abnormal NEGATIVE [place] Specific [place], UA 1.025 [place] Turbidity UA HAZY Abnormal CLEAR [place] Urinalysis Comments [place] Urine Hgb 3+ Abnormal NEGATIVE [place] Urobilinogen, Urine Normal Normal [place] Urinalysis, Routineon 2018 Acetoacetic Acid,Ur TRACE Abnormal NEG [facility] Comment on above: Performed By: #### U HCG, UA, UMICAO #### [facility] [address] [place] [address] Resident Manager: Jam Taveras MD Bilirubin, SemiQt,Ur Negative Normal [facility] Comment on above: Performed By: #### U HCG, UA, UMICAO #### [facility] [address] [place] [address] Resident Manager: Jam Taveras MD Color (U) YELLOW Normal YEL [facility] Comment on above: Performed By: #### U HCG, UA, UMICAO #### [facility] [address] [place], [place] [id number] Resident Manager: Jam Taveras MD Comment Normal [facility] Comment on above: Performed By: #### U HCG, UA, UMICAO #### [facility] [address] [place] [address] Resident Manager: Jam Taveras MD Glucose Ql (U) Negative Normal [facility] Comment on above: Performed By: #### U HCG, UA, UMICAO #### [facility] [address] [place] [address] Resident Manager: Jam Taveras MD Hemoglobin, Ur 3+ Abnormal NEG [facility] Comment on above: Performed By: #### U HCG, UA, UMICAO #### [facility] [address] [place] [address] Resident Manager: Jam Taveras MD Leukocyte esterase Test strip Ql (U) 3+ Abnormal NEG [facility] Comment on above: Performed By: #### U HCG, UA, UMICAO #### [facility] [address] [place], [place] [id number] Resident Manager: Jam Taveras MD Nitrite,Ur Negative Normal [facility] Comment on above: Performed By: #### U HCG, UA, UMICAO #### [facility] [address] [place] [address] Resident Manager: Jam Taveras MD pH (U) 6.0 [pH] Normal 5.0-8.0 [facility] Comment on above: Performed By: #### U HCG, UA, UMICAO #### [facility] [address] [place] [address] Resident Manager: Jam Taveras MD Protein Ql (U) 3+ Abnormal NEG [facility] Comment on above: Performed By: #### U HCG, UA, UMICAO #### [facility] [address] [place] [address] Resident Manager: Jam Taveras MD Specific gravity (U) [Rel density] 1.025 Normal 1.005-1.030 [facility] Comment on above: Performed By: #### U HCG, UA, UMICAO #### [facility] [address] [place] [address] Resident Manager: Jam Taveras MD Turbidity HAZY Abnormal CLEAR [facility] Comment on above: Performed By: #### U HCG, UA, UMICAO #### [facility] [address] [place] [address] Resident Manager: Jam Taveras MD Urobilinogen,Ur Normal Normal NORM [facility] Comment on above: Performed By: #### U HCG, UA, UMICAO #### [facility] [address] [place] [address] Resident Manager: Jam Taveras MD Urinalysis,Microon 9 ----- Normal [facility] Comment on above: Performed By: #### U HCG, UA, UMICAO #### [facility] [address] [place] [id number] Resident Manager: Jam Taveras MD Bacteria LM.HPF (Urine sed) [#/Area] 1+ Abnormal NONE [facility] Comment on above: Performed By: #### U HCG, UA, UMICAO #### [facility] [address] [place], [place] [id number] Resident Manager: Jam Taveras MD Epithelial cells LM.HPF (Urine sed) [#/Area] 0 TO 2 Normal [facility] Comment on above: Performed By: #### U HCG, UA, UMICAO #### [facility] [address] [place], [place] [id number] Resident Manager: Jam Taveras MD RBC (U) [#/Vol] 10 TO 20 Normal 0-2 [facility] Comment on above: Performed By: #### U HCG, UA, UMICAO #### [facility] [address] [place] [address] Resident Manager: Jam Taveras MD WBC (U) [#/Vol] 20 TO 50 Normal 0 [facility] Comment on above: Performed By: #### U HCG, UA, UMICAO #### [facility] [address] [place] [address] Resident Manager: Jam Taveras MD Amorphous sediment LM Ql (Urine sed) NOT REPORTED Normal [facility] Comment on above: Performed By: #### U HCG, UA, UMICAO #### [facility] [address] [place] [address] Resident Manager: Jam Taveras MD Casts LM.LPF (Urine sed) [#/Area] NOT REPORTED Normal [facility] Comment on above: Performed By: #### U HCG, UA, UMICAO #### [facility] [address] [place] [address] Resident Manager: Jam Taveras MD Crystals LM Nom (Urine sed) NOT REPORTED Normal [facility] Comment on above: Performed By: #### U HCG, UA, UMICAO #### [facility] [address] [place], [place] [id number] Resident Manager: Jam Taveras MD Epithelial, Renal NOT REPORTED Normal 0 [facility] Comment on above: Performed By: #### U HCG, UA, UMICAO #### [facility] [address] [place], [place] [id number] Resident Manager: Jam Taveras MD Mucus Strands NOT REPORTED Normal NONE [facility] Comment on above: Performed By: #### U HCG, UA, UMICAO #### [facility] [address] [place], [place] 1529390 Resident Manager: Jam Taveras MD Other Observations NOT REPORTED Normal NREQ [facility] Comment on above: Performed By: #### U HCG, UA, UMICAO #### [facility] [address] [place], [place] [phone] Resident Manager: Jam Taveras MD Trichomonas NOT REPORTED Normal NONE [facility] Comment on above: Performed By: #### U HCG, UA, UMICAO #### [facility] [address] [place], [place] [phone] Resident Manager: Jam Taveras MD Yeast LM Ql (Urine sed) NOT REPORTED Normal [facility] Comment on above: Performed By: #### U HCG, UA, UMICAO #### [facility] [address] [place], [place] 7127[address] Resident Manager: Jam Taveras MD Alcohol, Medicalon 8 Ethanol mass conc Negative Normal [facility] Comment on above: Performed By: #### L IPASE, CBCDIF, CMET ####Unless otherwise noted, all testing performed by [address] [phone]: [id number] Director: Otf Carreno M.D. Drugs of Abuse, Urineon 12-1 Amphetamines,Ur None Detected Normal None Detected [facility] Comment on above: Performed By: #### L IPASE, CBCDIF, CMET ####Unless otherwise noted, all testing performed by [place] [phone]: [id number] Director: Otf Carreno M.D. Barbiturates,Ur None Detected Normal None Detected [facility] Comment on above: Performed By: #### L IPASE, CBCDIF, CMET ####Unless otherwise noted, all testing performed by [address]: [id number] Director: Otf Carreno M.D. Benzodiazepine,Ur None Detected Normal None Detected [facility] Comment on above: Performed By: #### L IPASE, CBCDIF, CMET ####Unless otherwise noted, all testing performed by [place] [phone]: [id number] Director: Otf Carreno M.D. Cannabinoids,Ur Positive Abnormal None Detected [facility] Comment on above: Performed By: #### L IPASE, CBCDIF, CMET ####Unless otherwise noted, all testing performed by [place] [phone]: [id number] Director: Otf Carreno M.D. Cocaine,Ur None Detected Normal None Detected [facility] Comment on above: Performed By: #### L IPASE, CBCDIF, CMET ####Unless otherwise noted, all testing performed by [place] [phone]: [id number] Director: Otf Carreno M.D. DOA Cutoffs See comment. Normal [facility] Comment on above: Result Comment: Drug s of Abuse, Urine Presumptive Positive Cutoff Concentrations.Amphetamine/Methamphetamine: 1000 ng/mlBarbiturates: 200 ng/mlBenzodiazepines and metabolities: 200 ng/mlCannabinoids: 50 ng/mlCocaine/Benzoylecgonine: 300 ng/mlMethadone:300 ng/mlOpiates: 300 ng/mlOxycodone/Oxymorphone: 100 ng/ml Performed By: #### L IPASE, CBCDIF, CMET ####Unless otherwise noted, all testing performed by [address] [phone]: [id number] Director: Otf Carreno M.D. Methadone,Ur None Detected Normal None Detected [facility] Comment on above: Performed By: #### L IPASE, CBCDIF, CMET ####Unless otherwise noted, all testing performed by [address] [phone]: [id number] Director: Otf Carreno M.D. Opiates,Ur None Detected Normal None Detected [facility] Comment on above: Performed By: #### L IPASE, CBCDIF, CMET ####Unless otherwise noted, all testing performed by [address] [phone]: [id number] Director: Otf Carreno M.D. Oxycodone, Urine None Detected Normal None Detected [facility] Comment on above: Result Comment: THES E DRUGS OF ABUSE TESTS ARE PROVIDED A MEDICAL SCREENING ONLY.POSITIVE RESULTS ARENOT CONFIRMED BY GCMS Performed By: #### L IPASE, CBCDIF, CMET ####Unless otherwise noted, all testing performed by [address] [phone]: [id number] Director: Otf Carreno M.D. Test,Urine Qualon 02-04-2018 HCG.beta subunit ( test) Ql (U) Negative Normal Negative [facility] Comment on above: Result Comment: Rapi d test procedural control acceptable.If a negative result is obtained but is suspected, hCG levelsmay be too low or urine may be too dilute for detection. Another specimenshould be collected after 48-72 hours and tested. If waiting 48 hours isnot medically advisable, the test result should be confirmed with a moresensitive quantitative serum hCG test. Performed By: #### L IPASE, CBCDIF, CMET ####Unless otherwise noted, all testing performed by [address] [phone]: [id number] Director: Otf Carreno M.D. Strep Screen Throat/Rapidon 12-09-2017 S. pyogenes Ag IA Ql (Unsp spec) Test Name: Strep Screen Throat/Rapid Culture Status: Final Culture Report: No Group A streptococci isolated. Rapid Strep A: Negative Negative rapid antigen tests will be followed-up with a culture. Micro Source: Throat Normal [facility] Comment on above: Performed By: #### L IPASE, CBCDIF, CMET ####Unless otherwise noted, all testing performed by [address] [phone]: [id number] Director: Otf Carreno M.D. CBC with Diffon 10-08-2017 Basophils Auto #/vol (Bld) 0.1 K/mcL Normal 0-0.2 [facility] Comment on above: Performed By: #### L IPASE, CBCDIF, CMET ####Unless otherwise noted, all testing performed by [address] [phone]: [id number] Director: Otf Carreno M.D. Basophils/100 WBC Auto (Bld) 1.0 % Normal [facility] Comment on above: Performed By: #### L IPASE, CBCDIF, CMET ####Unless otherwise noted, all testing performed by [address] [phone]: [id number] Director: Otf Carreno M.D. Eosinophils Auto #/vol (Bld) 0.2 K/mcL Normal 0-0.5 [facility] Comment on above: Performed By: #### L IPASE, CBCDIF, CMET ####Unless otherwise noted, all testing performed by [address] [phone]: [id number] Director: Otf Carreno M.D. Eosinophils/100 WBC Auto (Bld) 1.9 % Normal [facility] Comment on above: Performed By: #### L IPASE, CBCDIF, CMET ####Unless otherwise noted, all testing performed by [address] [phone]: [id number] Director: Otf Carreno M.D. Erythrocyte distribution width Auto Ratio (RBC) 13.4 % Normal 10.0-14.4 [facility] Comment on above: Performed By: #### L IPASE, CBCDIF, CMET ####Unless otherwise noted, all testing performed by [address] [phone]: [id number] Director: Otf Carreno M.D. Hematocrit Auto Volume Fraction (Bld) 39.4 % Normal 34.4-44.8 [facility] Comment on above: Performed By: #### L IPASE, CBCDIF, CMET ####Unless otherwise noted, all testing performed by [address] [phone]: [id number] Director: Otf Carreno M.D. Hemoglobin mass conc (Bld) 13.5 g/dL Normal 11.6-15.4 [facility] Comment on above: Performed By: #### L IPASE, CBCDIF, CMET ####Unless otherwise noted, all testing performed by [address] [phone]: [id number] Director: Otf Carreno M.D. Lymphocytes Auto #/vol (Bld) 3.1 K/mcL Normal 1.0-3.7 [facility] Comment on above: Performed By: #### L IPASE, CBCDIF, CMET ####Unless otherwise noted, all testing performed by [address] [phone]: [id number] Director: Otf Carreno M.D. Lymphocytes/100 WBC Auto (Bld) 27.7 % Normal [facility] Comment on above: Performed By: #### L IPASE, CBCDIF, CMET ####Unless otherwise noted, all testing performed by [address] [phone]: [id number] Director: Otf Carreno M.D. MCH Auto Entitic mass (RBC) 30.4 pg Normal 27.9-33.9 [facility] Comment on above: Performed By: #### L IPASE, CBCDIF, CMET ####Unless otherwise noted, all testing performed by [address] [phone]: [id number] Director: Otf Carreno M.D. MCHC Auto mass conc (RBC) 34.2 g/dL Normal 33.1-35.1 [facility] Comment on above: Performed By: #### L IPASE, CBCDIF, CMET ####Unless otherwise noted, all testing performed by [address] [phone]: [id number] Director: Otf Carreno M.D. MCV Auto Entitic volume (RBC) 88.9 fL Normal 82.6-98.9 [facility] Comment on above: Performed By: #### L IPASE, CBCDIF, CMET ####Unless otherwise noted, all testing performed by [address] [phone]: [id number] Director: Otf Carreno M.D. Monocytes Auto #/vol (Bld) 1.3 K/mcL High 0.1-0.6 [facility] Comment on above: Performed By: #### L IPASE, CBCDIF, CMET ####Unless otherwise noted, all testing performed by [address] [phone]: [id number] Director: Otf Carreno M.D. Monocytes/100 WBC Auto (Bld) 11.4 % Normal [facility] Comment on above: Performed By: #### L IPASE, CBCDIF, CMET ####Unless otherwise noted, all testing performed by [address] [phone]: [id number] Director: Otf Carreno M.D. Neutrophils Auto #/vol (Bld) 6.5 K/mcL Normal 1.2-6.9 [facility] Comment on above: Performed By: #### L IPASE, CBCDIF, CMET ####Unless otherwise noted, all testing performed by [address] [phone]: [id number] Director: Otf Carreno M.D. Platelet mean volume Auto Entitic volume (Bld) 10.3 fL Normal 7.0-10.6 [facility] Comment on above: Performed By: #### L IPASE, CBCDIF, CMET ####Unless otherwise noted, all testing performed by [address] [phone]: [id number] Director: Otf Carreno M.D. Platelets Auto #/vol (Bld) 265 K/mcL Normal 162-402 [facility] Comment on above: Performed By: #### L IPASE, CBCDIF, CMET ####Unless otherwise noted, all testing performed by [address] [phone]: [id number] Director: Otf Carreno M.D. RBC Auto #/vol (Bld) 4.43 M/mcL Normal 3.7-5.0 [facility] Comment on above: Performed By: #### L IPASE, CBCDIF, CMET ####Unless otherwise noted, all testing performed by [address] [phone]: [id number] Director: Otf Carreno M.D. Segmented Neut % 58.0 % Normal [facility] Comment on above: Performed By: #### L IPASE, CBCDIF, CMET ####Unless otherwise noted, all testing performed by [address] [phone]: [id number] Director: Oft Carreno M.D. WBC Auto #/vol (Bld) 11.2 K/mcL High 3.4-10.6 [facility] Comment on above: Performed By: #### L IPASE, CBCDIF, CMET ####Unless otherwise noted, all testing performed by [address] [phone]: [id number] Director: Otf Carreno M.D. Comprehensive Metabolic Pane [facility] 10-08-2017 Albumin mass conc 3.9 g/dL Normal 3.2-5.2 [facility] Comment on above: Performed By: #### L IPASE, CBCDIF, CMET ####Unless otherwise noted, all testing performed by [address] [phone]: [id number] Director: Otf Carreno M.D. ALP enzyme act/vol 57 U/L Normal 40-140 [facility] Comment on above: Performed By: #### L IPASE, CBCDIF, CMET ####Unless otherwise noted, all testing performed by [address] [phone]: [id number] Director: Otf Carreno M.D. ALT enzyme act/vol 17 U/L Normal 14-65 [facility] Comment on above: Result Comment: This test result might be falsely depressed or falsely elevated onsamples drawn from patients taking Sulfasalazine and Sulfapyridine.Venipuncture should occur prior to taking either of these drugs. Performed By: #### L IPASE, CBCDIF, CMET ####Unless otherwise noted, all testing performed by [address] [place], [place] [phone]: [id number] Director: Otf Carreno M.D. AST enzyme act/vol 11 U/L Normal 0-45 [facility] Comment on above: Result Comment: This test result might be falsely depressed or falsely elevated onsamples drawn from patients taking Sulfasalazine and Sulfapyridine.Venipuncture should occur prior to taking either of these drugs. Performed By: #### L IPASE, CBCDIF, CMET ####Unless otherwise noted, all testing performed by [address] [phone]: [id number] Director: Otf Carreno M.D. Bilirubin mass conc 0.3 mg/dL Normal 0.3-1.2 [facility] Comment on above: Performed By: #### L IPASE, CBCDIF, CMET ####Unless otherwise noted, all testing performed by [address] [phone]: [id number] Director: Otf Carreno M.D. Calcium mass conc 8.5 mg/dL Normal 8.4-10.2 [facility] Comment on above: Performed By: #### L IPASE, CBCDIF, CMET ####Unless otherwise noted, all testing performed by [address] [phone]: [id number] Director: Otf Carreno M.D. Chloride molar conc 109 mmol/L High 98-108 [facility] Comment on above: Performed By: #### L IPASE, CBCDIF, CMET ####Unless otherwise noted, all testing performed by [address] [phone]: [id number] Director: Otf Carreno M.D. CO2 molar conc 23 mmol/L Normal 21-32 [facility] Comment on above: Performed By: #### L IPASE, CBCDIF, CMET ####Unless otherwise noted, all testing performed by [address] [phone]: [id number] Director: Otf Carreno M.D. Creatinine mass conc 0.73 mg/dL Normal 0.40-1.10 [facility] Comment on above: Performed By: #### L IPASE, CBCDIF, CMET ####Unless otherwise noted, all testing performed by [address] [phone]: [id number] Director: Otf Carreno M.D. GFR/1.73 sq M predicted among blacks MDRD vol rate/area (S/P/Bld) mL/min/{1.73_m2} Normal [facility] Comment on above: Result Comment: Afri can Croatian GFR Calc Performed By: #### L IPASE, CBCDIF, CMET ####Unless otherwise noted, all testing performed by [address] [phone]: [id number] Director: Otf Carreno M.D. GFR/1.73 sq M predicted among non-blacks MDRD vol rate/area (S/P/Bld) mL/min/{1.73_m2} Normal [facility] Comment on above: Result Comment: Non- GFR CalceGFR is an estimated Glomerular Filtration Rate based on the valueof the patient's serum creatinine. In outpatients, eGFR should be usedas a helpful tool in screening for CKD. In inpatients or patients withacute renal failure, eGFR represents the GFR at the moment of the drawand should be used with caution. Performed By: #### L IPASE, CBCDIF, CMET ####Unless otherwise noted, all testing performed by [address] [phone]: [id number] Director: Otf Carreno M.D. Glucose mass conc 87 mg/dL Normal 70-99 [facility] Comment on above: Result Comment: This test result might be falsely depressed or falsely elevated onsamples drawn from patients taking Sulfasalazine and Sulfapyridine.Venipuncture should occur prior to taking either of these drugs. Performed By: #### L IPASE, CBCDIF, CMET ####Unless otherwise noted, all testing performed by [address] [phone]: [id number] Director: Otf Carreno M.D. Potassium molar conc 3.8 mmol/L Normal 3.5-5.1 [facility] Comment on above: Performed By: #### L IPASE, CBCDIF, CMET ####Unless otherwise noted, all testing performed by [address] [phone]: [id number] Director: Otf Carreno M.D. Protein mass conc 7.5 g/dL Normal 6.0-8.0 [facility] Comment on above: Performed By: #### L IPASE, CBCDIF, CMET ####Unless otherwise noted, all testing performed by [address] [phone]: [id number] Director: Otf Carreno M.D. Sodium molar conc 139 mmol/L Normal [address] [facility] Comment on above: Performed By: #### L IPASE, CBCDIF, CMET ####Unless otherwise noted, all testing performed by [address] [phone]: [id number] Director: Otf Carreno M.D. Urea nitrogen mass conc 12 mg/dL Normal 8-25 [facility] Comment on above: Performed By: #### L IPASE, CBCDIF, CMET ####Unless otherwise noted, all testing performed by [address] [phone]: [id number] Director: Otf Carreno M.D. HCG, Quantitativeon 10-09-19 18 HCG, Quantitative 541 mIU/mL Normal [facility] Comment on above: Result Comment: HCG, Quant. Reference Range: [Units mIU/ml]Gestation Age Approx.HCG0.2-1Week 5-501-2 Weeks 50-5002-3 Weeks 100-5,0003-4 Weeks 500-10,0004-5 Weeks 1,000-50,0006-8 Weeks 15,000-200,0002-3 Months 10,000-100,000Non- Females <5Males <5 Performed By: #### L IPASE, CBCDIF, CMET ####Unless otherwise noted, all testing performed by [address] [phone]: [id number] Director: Otf Carreno M.D. Lipaseon 10-08-2017 Lipase enzyme act/vol 68 U/L Low 73-393 [facility] Comment on above: Performed By: #### L IPASE, CBCDIF, CMET ####Unless otherwise noted, all testing performed by [address] [phone]: [id number] Director: Otf Carreno M.D. Test,Urine Qualon 10-08-2017 HCG.beta subunit ( test) Ql (U) Positive Abnormal Negative [facility] Comment on above: Result Comment: Rapi d test procedural control acceptable. Performed By: #### L IPASE, CBCDIF, CMET ####Unless otherwise noted, all testing performed by [address] [phone]: [id number] Director: Brandie Huff 10-08-2017 Rh Nom (Bld) Positive Normal [facility] Comment on above: Performed By: #### L IPASE, CBCDIF, CMET ####Unless otherwise noted, all testing performed by [address] [phone]: [id number] Director: Otf Carreno M.D. US OB TRANSVAGINALon 018 US OB TRANSVAGINAL Final Report Accession No: [id number] Performed: Oct 08 2017 8:38PMExamination: US OB TRANSVAGINALEXAM: Ultrasound OB pelvisHISTORY: 21-year-old female presenting with .COMPARISON: None.TECHNIQUE: Multiple images were obtained in the transverse andlongitudinaldimensions. Transvaginal techniques was utilized.FINDINGS: No intrauterine . Endometrium is heterogeneousmeasuring upto 1 cm in thickness.Uterus is normal in size, position, and echotexture. It measures 8.0 x4.1 x6.1 cm.Bilateral ovaries are normal in size and echogenicity. Right ovarymeasures 3.3x 1.9 x 2.1 cm. Left ovary measures 2.1 x 1.8 x 0.6 cm. Bilateral ovariesdemonstrate color Doppler flow and appropriate spectral waveforms.Resistiveindices measure 0.5 on the right and 0.4 on the left. No free fluididentified.IMPRESSION:1. No intrauterine . Please correlate with quantitativebeta-hCG.2. No gross adnexal masses.3. No free fluid.Interpreting Physician: CM KEVIN D.O.Trans: lwolfe : cc: Normal [facility] Urinalysis, Routineon 2017 Amorphous,Crystal Moderate Abnormal None Seen [facility] Comment on above: Performed By: #### L IPASE, CBCDIF, CMET ####Unless otherwise noted, all testing performed by [place] [phone]: [id number] Director: Otf Carreno M.D. Bacteria LM.HPF #/area (Urine sed) Rare Normal NS;RARE [facility] Comment on above: Performed By: #### L IPASE, CBCDIF, CMET ####Unless otherwise noted, all testing performed by [place] [phone]: [id number] Director: Otf Carreno M.D. Bilirubin,Urine Negative Normal NEG;NEGATIV E [facility] Comment on above: Performed By: #### L IPASE, CBCDIF, CMET ####Unless otherwise noted, all testing performed by [address] [phone]: [id number] Director: Otf Carreno M.D. Blood,Urine Moderate Abnormal NEG;NEGATIV E [facility] Comment on above: Performed By: #### L IPASE, CBCDIF, CMET ####Unless otherwise noted, all testing performed by [address] [phone]: [id number] Director: Otf Carreno M.D. Character Cloudy Normal [facility] Comment on above: Performed By: #### L IPASE, CBCDIF, CMET ####Unless otherwise noted, all testing performed by [address] [phone]: [id number] Director: Otf Carreno M.D. Color Nom (U) Regla Normal [facility] Comment on above: Performed By: #### L IPASE, CBCDIF, CMET ####Unless otherwise noted, all testing performed by [place] [phone]: [id number] Director: Otf Carreno M.D. Glucose Ql (U) Negative Normal NEG;NEGATIV E [facility] Comment on above: Performed By: #### L IPASE, CBCDIF, CMET ####Unless otherwise noted, all testing performed by [place] [phone]: [id number] Director: Otf Carreno M.D. Ketone,Urine Negative Normal NEG;NEGATIV E [facility] Comment on above: Performed By: #### L IPASE, CBCDIF, CMET ####Unless otherwise noted, all testing performed by [address] [phone]: [id number] Director: Otf Carreno M.D. Leuk.Esterase,Urine Negative Normal Negative [facility] Comment on above: Performed By: #### L IPASE, CBCDIF, CMET ####Unless otherwise noted, all testing performed by [address] [phone]: [id number] Director: Otf Carreno M.D. Nitrite,Urine Negative Normal NEG;NEGATIV E [facility] Comment on above: Performed By: #### L IPASE, CBCDIF, CMET ####Unless otherwise noted, all testing performed by [address] [phone]: [id number] Director: Otf Carreno M.D. pH Test strip (U) 7.0 [pH] Normal 4.5-8.0 [facility] Comment on above: Performed By: #### L IPASE, CBCDIF, CMET ####Unless otherwise noted, all testing performed by [address] [phone]: [id number] Director: Otf Carreno M.D. Protein,Urine Negative Normal NEG;NEGATIV E [facility] Comment on above: Performed By: #### L IPASE, CBCDIF, CMET ####Unless otherwise noted, all testing performed by [address] [phone]: [id number] Director: Otf Carreno M.D. RBC,Urine 49 /HPF High 0-5 [facility] Comment on above: Performed By: #### L IPASE, CBCDIF, CMET ####Unless otherwise noted, all testing performed by [address] [phone]: [id number] Director: Otf Carreno M.D. Specific [place],Urine 1.021 Normal 1.003-1.029 [facility] Comment on above: Performed By: #### L IPASE, CBCDIF, CMET ####Unless otherwise noted, all testing performed by [address] [phone]: [id number] Director: Otf Wai, M.D. Squamous Epithelial 2 /HPF Normal 0-40 [facility] Comment on above: Performed By: #### L IPASE, CBCDIF, CMET ####Unless otherwise noted, all testing performed by [address] [phone]: [id number] Director: Otf Carreno M.D. Urobilinogen,Urine 2.0 mg/dL High <2 [facility] Comment on above: Performed By: #### L IPASE, CBCDIF, CMET ####Unless otherwise noted, all testing performed by [address] [phone]: [id number] Director: Otf Carreno M.D. WBC,Urine 12 /HPF High 0-5 [facility] Comment on above: Performed By: #### L IPASE, CBCDIF, CMET ####Unless otherwise noted, all testing performed by [address] [phone]: [id number] Director: Otf Carreno M.D. Bacteria LM.HPF #/area (Urine sed) Rare Normal NS;RARE [facility] Comment on above: Performed By: #### L IPASE, CBCDIF, CMET ####Unless otherwise noted, all testing performed by [address] [phone]: [id number] Director: Otf Carreno M.D. Bilirubin,Urine Negative Normal NEG;NEGATIV E [facility] Comment on above: Performed By: #### L IPASE, CBCDIF, CMET ####Unless otherwise noted, all testing performed by [address] [phone]: [id number] Director: Otf Carreno M.D. Blood,Urine Moderate Abnormal NEG;NEGATIV E [facility] Comment on above: Performed By: #### L IPASE, CBCDIF, CMET ####Unless otherwise noted, all testing performed by [address] [phone]: [id number] Director: Otf Carreno M.D. Character Clear Normal [facility] Comment on above: Performed By: #### L IPASE, CBCDIF, CMET ####Unless otherwise noted, all testing performed by [address] [phone]: [id number] Director: Otf Carreno M.D. Color Nom (U) Yellow Normal [facility] Comment on above: Performed By: #### L IPASE, CBCDIF, CMET ####Unless otherwise noted, all testing performed by [place] [phone]: [id number] Director: Otf Carreno M.D. Glucose Ql (U) Negative Normal NEG;NEGATIV E [facility] Comment on above: Performed By: #### L IPASE, CBCDIF, CMET ####Unless otherwise noted, all testing performed by [address] [phone]: [id number] Director: Otf Carreno M.D. Ketone,Urine Negative Normal NEGATIVE;NE G [facility] Comment on above: Performed By: #### L IPASE, CBCDIF, CMET ####Unless otherwise noted, all testing performed by [address] [phone]: [id number] Director: Otf Carreno M.D. Leuk.Esterase,Urine Negative Normal Negative [facility] Comment on above: Performed By: #### L IPASE, CBCDIF, CMET ####Unless otherwise noted, all testing performed by [address] [phone]: [id number] Director: Otf Carreno M.D. Mucus, Urine Rare Abnormal None Seen [facility] Comment on above: Performed By: #### L IPASE, CBCDIF, CMET ####Unless otherwise noted, all testing performed by [address] [phone]: [id number] Director: Otf Carreno M.D. Nitrite,Urine Negative Normal NEG;NEGATIV E [facility] Comment on above: Performed By: #### L IPASE, CBCDIF, CMET ####Unless otherwise noted, all testing performed by [address] [phone]: [id number] Director: Otf Carreno M.D. pH Test strip (U) 6.0 [pH] Normal 4.5-8.0 [facility] Comment on above: Performed By: #### L IPASE, CBCDIF, CMET ####Unless otherwise noted, all testing performed by [address] [phone]: [id number] Director: Otf Carreno M.D. Protein,Urine Trace Abnormal NEGATIVE;NE G [facility] Comment on above: Performed By: #### L IPASE, CBCDIF, CMET ####Unless otherwise noted, all testing performed by [address] [phone]: [id number] Director: Otf Carreno M.D. RBC LM.HPF #/area (Urine sed) 5-10 Abnormal 0-3+;NS [facility] Comment on above: Performed By: #### L IPASE, CBCDIF, CMET ####Unless otherwise noted, all testing performed by [address] [phone]: [id number] Director: Otf Carreno M.D. Specific [place],Urine >= 1.030 High 1.003-1.029 [facility] Comment on above: Performed By: #### L IPASE, CBCDIF, CMET ####Unless otherwise noted, all testing performed by [address] [phone]: [id number] Director: Otf Carreno M.D. Squamous Epithelial 3-5 Abnormal 0-3+;NS [facility] Comment on above: Performed By: #### L IPASE, CBCDIF, CMET ####Unless otherwise noted, all testing performed by [address] [phone]: [id number] Director: Otf Carreno M.D. Urobilinogen,Urine 0.2 EU/dL Normal 0.2 [facility] Comment on above: Performed By: #### L IPASE, CBCDIF, CMET ####Unless otherwise noted, all testing performed by [address] [phone]: [id number] Director: Otf Carreno M.D. WBC LM.HPF #/area (Urine sed) 15-25 Abnormal 0-3+;3-5+;N S [facility] Comment on above: Performed By: #### L IPASE, CBCDIF, CMET ####Unless otherwise noted, all testing performed by [place] [phone]: [id number] Director: Otf Carreno M.D. CBC with Diffon 09-08-2017 Basophils Auto #/vol (Bld) 0.1 K/mcL Normal 0-0.2 [facility] Comment on above: Performed By: #### L IPASE, CBCDIF, CMET ####Unless otherwise noted, all testing performed by [place] [phone]: [id number] Director: Otf Carreno M.D. Basophils/100 WBC Auto (Bld) 0.5 % [facility] Comment on above: Performed By: #### L IPASE, CBCDIF, CMET ####Unless otherwise noted, all testing performed by [place] [phone]: [id number] Director: Otf Carreno M.D. Eosinophils Auto #/vol (Bld) 0.1 K/mcL Normal 0-0.5 [facility] Comment on above: Performed By: #### L IPASE, CBCDIF, CMET ####Unless otherwise noted, all testing performed by [address] [phone]: [id number] Director: Otf Carreno M.D. Eosinophils/100 WBC Auto (Bld) 1.4 % Normal [facility] Comment on above: Performed By: #### L IPASE, CBCDIF, CMET ####Unless otherwise noted, all testing performed by [address] [phone]: [id number] Director: Otf Carreno M.D. Erythrocyte distribution width Auto Ratio (RBC) 13.3 % Normal 10-14.4 [facility] Comment on above: Performed By: #### L IPASE, CBCDIF, CMET ####Unless otherwise noted, all testing performed by [address] [phone]: [id number] Director: Otf Carreno M.D. Hematocrit Auto Volume Fraction (Bld) 40.2 % Normal 34.4-44.8 [facility] Comment on above: Performed By: #### L IPASE, CBCDIF, CMET ####Unless otherwise noted, all testing performed by [address] [phone]: [id number] Director: Otf Carreno M.D. Hemoglobin mass conc (Bld) 13.9 g/dL Normal 11.6-15.4 [facility] Comment on above: Performed By: #### L IPASE, CBCDIF, CMET ####Unless otherwise noted, all testing performed by [address] [phone]: [id number] Director: Otf Carreno M.D. Lymphocytes Auto #/vol (Bld) 2.2 K/mcL Normal 1.0-3.7 [facility] Comment on above: Performed By: #### L IPASE, CBCDIF, CMET ####Unless otherwise noted, all testing performed by [address] [phone]: [id number] Director: Otf Carreno M.D. Lymphocytes/100 WBC Auto (Bld) 21.7 % Normal [facility] Comment on above: Performed By: #### L IPASE, CBCDIF, CMET ####Unless otherwise noted, all testing performed by [address] [phone]: [id number] Director: Otf Carreno M.D. MCH Auto Entitic mass (RBC) 30.2 pg Normal 27.9-33.9 [facility] Comment on above: Performed By: #### L IPASE, CBCDIF, CMET ####Unless otherwise noted, all testing performed by [address] [phone]: [id number] Director: Otf Carreno M.D. MCHC Auto mass conc (RBC) 34.6 g/dL Normal 33.1-35.1 [facility] Comment on above: Performed By: #### L IPASE, CBCDIF, CMET ####Unless otherwise noted, all testing performed by [address] [phone]: [id number] Director: Otf Carreno M.D. MCV Auto Entitic volume (RBC) 87.4 fL Normal 82.6-98.9 [facility] Comment on above: Performed By: #### L IPASE, CBCDIF, CMET ####Unless otherwise noted, all testing performed by [address] [phone]: [id number] Director: Otf Carreno M.D. Monocytes Auto #/vol (Bld) 0.8 K/mcL High 0.1-0.6 [facility] Comment on above: Performed By: #### L IPASE, CBCDIF, CMET ####Unless otherwise noted, all testing performed by [address] [phone]: [id number] Director: Otf Carreno M.D. Monocytes/100 WBC Auto (Bld) 7.6 % Normal [facility] Comment on above: Performed By: #### L IPASE, CBCDIF, CMET ####Unless otherwise noted, all testing performed by [address] [phone]: [id number] Director: Otf Carreno M.D. Neutrophils Auto #/vol (Bld) 6.9 K/mcL Normal 1.2-6.9 [facility] Comment on above: Performed By: #### L IPASE, CBCDIF, CMET ####Unless otherwise noted, all testing performed by [address] [phone]: [id number] Director: Otf Carreno M.D. Platelet mean volume Auto Entitic volume (Bld) 9.2 fL Normal 7.0-10.6 [facility] Comment on above: Performed By: #### L IPASE, CBCDIF, CMET ####Unless otherwise noted, all testing performed by [address] [phone]: [id number] Director: Otf Carreno M.D. Platelets Auto #/vol (Bld) 257 K/mcL Normal 162-402 [facility] Comment on above: Performed By: #### L IPASE, CBCDIF, CMET ####Unless otherwise noted, all testing performed by [address], [place] [phone]: [id number] Director: Otf Carreno M.D. RBC Auto #/vol (Bld) 4.60 M/mcL Normal 3.7-5.0 [facility] Comment on above: Performed By: #### L IPASE, CBCDIF, CMET ####Unless otherwise noted, all testing performed by [address] [phone]: [id number] Director: Otf Carreno M.D. Segmented Neut % 68.8 % Normal [facility] Comment on above: Performed By: #### L IPASE, CBCDIF, CMET ####Unless otherwise noted, all testing performed by [address] [phone]: [id number] Director: Otf Carreno M.D. WBC Auto #/vol (Bld) 10.1 K/mcL Normal 3.4-10.6 [facility] Comment on above: Performed By: #### L IPASE, CBCDIF, CMET ####Unless otherwise noted, all testing performed by [address] [phone]: [id number] Director: Otf Carreno M.D. CT ABDO,PELVIS W/O CONTRASTo n 09-08-2017 CT ABDO,PELVIS W/O CONTRAST Final ReportAccession No: [id number] Performed: Sep 08 2017 5:38PMExamination: CT ABDO,PELVIS W/O CONTRASTEXAM: CT ABDO,PELVIS W/O CONTRASTCLINICAL INDICATION: Abdominal Pain TECH NOTES: ABD PAIN X 1 WEEK.PTHASNT TAKEN FIBER IN PAST COUPLE DAYS BECAUSE IT HURTS MY STOMACH ALSOC/ONAUSEA. PT STATES I REALLY JUST WANT A TEST. Onset 1 Weeksago,Timing Sudden, Occurred at Home, Location Abdomen, Current Pain 6, Painat WorstTECHNIQUE: Unenhanced noncontrasted CT of the abdomen and pelvis withmultiplesequential images obtained along the axial plane at 3.0 mm slice widthfrom thelevel of the lung bases through to the pubic symphysis under urolithiasisprotocol. Images were reconstructed and assessed in the coronal plane.Dose reduction techniques were achieved by using automated exposurecontroland/or adjustment of mA and/or kV according to patient size and/or use ofiterative reconstruction technique.COMPARISON STUDY: 02/18/2017.Dose reduction techniques were achieved by using automated exposurecontroland/or adjustment of mA and/or kV according to patient size and/or use ofiterative reconstruction technique.FINDINGS: Evaluation of visceral organs is limited secondary to lack ofintravenous contrast.Heterogeneous low-attenuation area within the right adnexa measuring upto 6.7x 5.5 cm in size is seen, nonspecific in etiology and may representcomplexcyst or complex fluid collection, however, ovarian torsion, hemorrhage,hydrosalpinx, or ectopic amongst others in the appropriateclinicalsettings cannot be entirely excluded.The kidneys are within normal limits with no evidence of hydronephrosis,hydroureter, or perinephric stranding. No pathological calcifications areidentified within the kidneys or ureters. The bladder is within normallimitswith no evidence of calculi.There is no evidence of intraperitoneal free air.The liver, spleen, and pancreas are within normal limits with no evidenceofgross focal lesions. The adrenal glands are within normal limits with noevidence of mass lesions.The small intestine and colon are of normal caliber and arenonobstructive.There is no evidence of inflammatory changes around the bowel loops.The appendix is not positively identified, however, there is no evidenceforpericecal inflammatory changes identified to suggest acute appendicitis.Uterus is present and appears within normal limits as seen without IVcontrast.The abdominal aorta is of normal caliber with no evidence of aneurysm.IMPRESSION:1. Heterogeneous low-attenuation area within the right adnexa measuringup to6.7 x 5.5 cm in size is seen, nonspecific in etiology and may representcomplexcyst or complex fluid collection, however, ovarian torsion, hemorrhage,hydrosalpinx or ectopic amongst others in the appropriateclinicalsettings cannot be entirely excluded. Clinical correlation and withpregnancytest recommended. Further evaluation with ultrasound is also suggested.2. The appendix is not positively identified.3. No evidence of urolithiasis - no evidence ofhydronephrosis/hydroureter/ perinephric stranding.4. Additional findings as above.Interpreting Physician: DORA BRUCE M.D.Trans: apope : cc: Normal [facility] Comprehensive Metabolic Pane antoine 09-08-2017 Albumin mass conc 3.5 g/dL Normal 3.2-5.2 [facility] Comment on above: Performed By: #### L IPASE, CBCDIF, CMET ####Unless otherwise noted, all testing performed by [address] [phone]: [id number] Director: Otf Carreno M.D. ALP enzyme act/vol 53 U/L Normal 40-140 [facility] Comment on above: Performed By: #### L IPASE, CBCDIF, CMET ####Unless otherwise noted, all testing performed by [address] [phone]: [id number] Director: Otf Carreno M.D. ALT enzyme act/vol 17 U/L Normal 14-65 [facility] Comment on above: Result Comment: This test result might be falsely depressed or falsely elevated onsamples drawn from patients taking Sulfasalazine and Sulfapyridine.Venipuncture should occur prior to taking either of these drugs. Performed By: #### L IPASE, CBCDIF, CMET ####Unless otherwise noted, all testing performed by [address] [phone]: [id number] Director: Otf Carreno M.D. AST enzyme act/vol 13 U/L Normal 0-45 [facility] Comment on above: Result Comment: This test result might be falsely depressed or falsely elevated onsamples drawn from patients taking Sulfasalazine and Sulfapyridine.Venipuncture should occur prior to taking either of these drugs. Performed By: #### L IPASE, CBCDIF, CMET ####Unless otherwise noted, all testing performed by [address] [phone]: [id number] Director: Otf Carreno M.D. Bilirubin mass conc 0.4 mg/dL Normal 0.3-1.2 [facility] Comment on above: Performed By: #### L IPASE, CBCDIF, CMET ####Unless otherwise noted, all testing performed by [address] [phone]: [id number] Director: Otf Carreno M.D. Calcium mass conc 8.8 mg/dL Normal 8.4-10.2 [facility] Comment on above: Performed By: #### L IPASE, CBCDIF, CMET ####Unless otherwise noted, all testing performed by [address] [phone]: [id number] Director: Otf Carreno M.D. Chloride molar conc 108 mmol/L Normal 98-108 [facility] Comment on above: Performed By: #### L IPASE, CBCDIF, CMET ####Unless otherwise noted, all testing performed by [address] [phone]: [id number] Director: Otf Carreno M.D. CO2 molar conc 24 mmol/L Normal 21-32 [facility] Comment on above: Performed By: #### L IPASE, CBCDIF, CMET ####Unless otherwise noted, all testing performed by [address] [phone]: [id number] Director: Otf Carreno M.D. Creatinine mass conc 0.66 mg/dL Normal 0.40-1.10 [facility] Comment on above: Performed By: #### L IPASE, CBCDIF, CMET ####Unless otherwise noted, all testing performed by [address] [phone]: [id number] Director: Otf Carreno M.D. GFR/1.73 sq M predicted among blacks MDRD vol rate/area (S/P/Bld) mL/min/{1.73_m2} Normal [facility] [facility] Comment on above: Result Comment: Afri can Croatian GFR Calc Performed By: #### L IPASE, CBCDIF, CMET ####Unless otherwise noted, all testing performed by [address] [phone]: [id number] Director: Otf Carreno M.D. GFR/1.73 sq M predicted among non-blacks MDRD vol rate/area (S/P/Bld) mL/min/{1.73_m2} Normal [facility] Comment on above: Result Comment: Non- GFR CalceGFR is an estimated Glomerular Filtration Rate based on the valueof the patient's serum creatinine. In outpatients, eGFR should be usedas a helpful tool in screening for CKD. In inpatients or patients withacute renal failure, eGFR represents the GFR at the moment of the drawand should be used with caution. Performed By: #### L IPASE, CBCDIF, CMET ####Unless otherwise noted, all testing performed by [address] [phone]: [id number] Director: Otf Carreno M.D. Glucose mass conc 88 mg/dL Normal 70-99 [facility] Comment on above: Result Comment: This test result might be falsely depressed or falsely elevated onsamples drawn from patients taking Sulfasalazine and Sulfapyridine.Venipuncture should occur prior to taking either of these drugs. Performed By: #### L IPASE, CBCDIF, CMET ####Unless otherwise noted, all testing performed by [address] [phone]: [id number] Director: Otf Carreno M.D. Potassium molar conc 3.9 mmol/L Normal 3.5-5.1 [facility] Comment on above: Performed By: #### L IPASE, CBCDIF, CMET ####Unless otherwise noted, all testing performed by [address] [phone]: [id number] Director: Otf Carreno M.D. Protein mass conc 7.2 g/dL Normal 6.0-8.0 [facility] Comment on above: Performed By: #### L IPASE, CBCDIF, CMET ####Unless otherwise noted, all testing performed by [address] [phone]: [id number] Director: Otf Carreno M.D. Sodium molar conc 138 mmol/L Normal 135-145 [facility] Comment on above: Performed By: #### L IPASE, CBCDIF, CMET ####Unless otherwise noted, all testing performed by [address] [phone]: [id number] Director: Otf Carreno M.D. Urea nitrogen mass conc 11 mg/dL Normal 8-25 [facility] Comment on above: Performed By: #### L IPASE, CBCDIF, CMET ####Unless otherwise noted, all testing performed by [address] [phone]: [id number] Director: Otf Carreno M.D. Lipaseon 09-08-2017 Lipase enzyme act/vol 54 U/L Low 73-393 [facility] Comment on above: Performed By: #### L IPASE, CBCDIF, CMET ####Unless otherwise noted, all testing performed by [address] [phone]: [id number] Director: Otf Carreno M.D. Test,Urine Qualon 09-08-2017 HCG.beta subunit ( test) Ql (U) Negative Normal Negative [facility] Comment on above: Result Comment: Rapi d test procedural control acceptable.If a negative result is obtained but is suspected, hCG levelsmay be too low or urine may be too dilute for detection. Another specimenshould be collected after 48-72 hours and tested. If waiting 48 hours isnot medically advisable, the test result should be confirmed with a moresensitive quantitative serum hCG test. Performed By: #### L IPASE, CBCDIF, CMET ####Unless otherwise noted, all testing performed by [address] [phone]: [id number] Director: Otf Carreno M.D. Urinalysis, Routineon 2017 Bacteria LM.HPF #/area (Urine sed) Moderate Abnormal NS;RARE [facility] Comment on above: Performed By: #### L IPASE, CBCDIF, CMET ####Unless otherwise noted, all testing performed by [facility] [address] [phone]: [id number] Director: Otf Carreno M.D. Bilirubin,Urine Negative Normal NEG;NEGATIV E [facility] Comment on above: Performed By: #### L IPASE, CBCDIF, CMET ####Unless otherwise noted, all testing performed by [address] [phone]: [id number] Director: Otf Carreno M.D. Blood,Urine Trace Abnormal NEG;NEGATIV [facility] Comment on above: Performed By: #### L IPASE, CBCDIF, CMET ####Unless otherwise noted, all testing performed by [address] [phone]: [id number] Director: Otf Carreno M.D. Character Slightly Cloudy Normal [facility] Comment on above: Performed By: #### L IPASE, CBCDIF, CMET ####Unless otherwise noted, all testing performed by [address] [phone]: [id number] Director: Otf Carreno M.D. Color Nom (U) Yellow Normal [facility] Comment on above: Performed By: #### L IPASE, CBCDIF, CMET ####Unless otherwise noted, all testing performed by [address] [phone]: [id number] Director: Otf Carreno M.D. Glucose Ql (U) Negative Normal NEG;NEGATIV E [facility] Comment on above: Performed By: #### L IPASE, CBCDIF, CMET ####Unless otherwise noted, all testing performed by [address] [phone]: [id number] Director: Otf Carreno M.D. Ketone,Urine Negative Normal NEGATIVE;NE G [facility] Comment on above: Performed By: #### L IPASE, CBCDIF, CMET ####Unless otherwise noted, all testing performed by [address] [phone]: [id number] Director: Otf Carreno M.D. Leuk.Esterase,Urine Small Abnormal Negative [facility] Comment on above: Performed By: #### L IPASE, CBCDIF, CMET ####Unless otherwise noted, all testing performed by [address] [phone]: [id number] Director: Otf Carreno M.D. Nitrite,Urine Negative Normal NEG;NEGATIV E [facility] Comment on above: Performed By: #### L IPASE, CBCDIF, CMET ####Unless otherwise noted, all testing performed by [address] [phone]: [id number] Director: Otf Carreno M.D. pH Test strip (U) 6.0 [pH] Normal 4.5-8.0 [facility] Comment on above: Performed By: #### L IPASE, CBCDIF, CMET ####Unless otherwise noted, all testing performed by [address] [phone]: [id number] Director: Otf Carreno M.D. Protein,Urine Negative Normal NEGATIVE;NE G [facility] Comment on above: Performed By: #### L IPASE, CBCDIF, CMET ####Unless otherwise noted, all testing performed by [address] [phone]: [id number] Director: Otf Carreno M.D. RBC LM.HPF #/area (Urine sed) 3-5 Abnormal 0-3+;NS [facility] Comment on above: Performed By: #### L IPASE, CBCDIF, CMET ####Unless otherwise noted, all testing performed by [address] [phone]: [id number] Director: Otf Carreno M.D. Specific [place],Urine 1.025 Normal 1.003-1.029 [facility] Comment on above: Performed By: #### L IPASE, CBCDIF, CMET ####Unless otherwise noted, all testing performed by [address] [phone]: [id number] Director: Otf Carreno M.D. Squamous Epithelial 15-25 Abnormal 0-3+;NS [facility] Comment on above: Performed By: #### L IPASE, CBCDIF, CMET ####Unless otherwise noted, all testing performed by [address] [phone]: [id number] Director: Otf Carreno M.D. Urobilinogen,Urine 0.2 EU/dL Normal 0.2 [facility] Comment on above: Performed By: #### L IPASE, CBCDIF, CMET ####Unless otherwise noted, all testing performed by [address] [phone]: [id number] Director: Otf Carreno M.D. WBC LM.HPF #/area (Urine sed) 10-15 Abnormal 0-3+;3-5+;N S [facility] Comment on above: Performed By: #### L IPASE, CBCDIF, CMET ####Unless otherwise noted, all testing performed by [address] [phone]: [id number] Director: Otf Carreno M.D. Chlamydia/GC/Trich Amp RNAon 08-04-2017 Chlamydia trach, Amp. RNA Genl Negative Normal Negative [facility] Comment on above: Performed By: #### L IPASE, CBCDIF, CMET ####Unless otherwise noted, all testing performed by [address] [phone]: [id number] Director: Otf Carreno M.D. Neisseria Gonorrhoeae, Amp.RNA Negative Normal Negative [facility] Comment on above: Result Comment: Test Performed by [facility] [address] [address] Performed By: #### L IPASE, CBCDIF, CMET ####Unless otherwise noted, all testing performed by [address] [phone]: [id number] Director: Otf Carreno M.D. Trichomonas vaginalis Amp.RNA Negative Normal Negative [facility] Comment on above: Result Comment: Test Performed by [facility] [address] [address] Performed By: #### L IPASE, CBCDIF, CMET ####Unless otherwise noted, all testing performed by [address] [phone]: [id number] Director: Otf Carreno M.D. Exception Noticeon 8 Exception Notice Normal [facility] Comment on above: Result Comment: HERP ES SIMPLEX VIRUS CANCELLED DUE TO COLLECTION VIAL USED TOOBTAIN SAMPLE..SHELBYY NOTIFIED AND PATIENTS ACCOUT CREDITED. Performed By: #### L IPASE, CBCDIF, CMET ####Unless otherwise noted, all testing performed by [address] [phone]: [id number] Director: Otf Carreno M.D. Herpes simplex Virus (PCR)on 08-04-2017 HSV 1, PCR TNP: See Comments Normal [facility] Comment on above: Result Comment: Herp es Simplex Virus PCR was cancelled on 08/05/2017 at11:12; Test cancelled by laboratory due to expiredcollection vial. SOURCE: CERVIXTest Performed by:[place] [address] Performed By: #### L IPASE, CBCDIF, CMET ####Unless otherwise noted, all testing performed by [address] [phone]: [id number] Director: Otf Carreno M.D. Test,Urine Qualon 08-04-2017 HCG.beta subunit ( test) Ql (U) Negative Normal Negative [facility] Comment on above: Result Comment: Rapi d test procedural control acceptable.If a negative result is obtained but is suspected, hCG levelsmay be too low or urine may be too dilute for detection. Another specimenshould be collected after 48-72 hours and tested. If waiting 48 hours isnot medically advisable, the test result should be confirmed with a moresensitive quantitative serum hCG test. Performed By: #### P REGJOMAR, UIC ####Unless otherwise noted, all testing performed by [address] [phone]: [id number] Director: Otf Carreno M.D. Urine with Indicated Culture on 08-04-2017 Bacteria LM.HPF #/area (Urine sed) Occasional Abnormal NS;RARE [facility] Comment on above: Performed By: #### P REGUR, UIC ####Unless otherwise noted, all testing performed by [address] [phone]: [id number] Director: Otf Carreno M.D. Bilirubin,Urine Negative Normal NEG;NEGATIV E [facility] Comment on above: Performed By: #### P REGUR, UIC ####Unless otherwise noted, all testing performed by [address] [phone]: [id number] Director: Otf Carreno M.D. Blood,Urine Small Abnormal NEG;NEGATIV E [facility] Comment on above: Performed By: #### P REGUR, UIC ####Unless otherwise noted, all testing performed by [address] [phone]: [id number] Director: Otf Carreno M.D. Character Clear Normal [facility] Comment on above: Performed By: #### P REGUR, UIC ####Unless otherwise noted, all testing performed by [address] [phone]: [id number] Director: Otf Carreno M.D. Color Nom (U) Yellow Normal [facility] Comment on above: Performed By: #### P REGUR, UIC ####Unless otherwise noted, all testing performed by [address], [place] [phone]: [id number] Director: Otf Carreno M.D. Glucose Ql (U) Negative Normal NEG;NEGATIV E [facility] Comment on above: Performed By: #### P REGUR, UIC ####Unless otherwise noted, all testing performed by [place] [phone]: [id number] Director: Otf Carreno M.D. Ketone,Urine Negative Normal NEGATIVE;NE G [facility] Comment on above: Performed By: #### P REGUR, UIC ####Unless otherwise noted, all testing performed by [place] [phone]: [id number] Director: Otf Carreno M.D. Leuk.Esterase,Urine Negative Normal Negative [facility] Comment on above: Performed By: #### P REGUR, UIC ####Unless otherwise noted, all testing performed by [place] [phone]: [id number] Director: Otf Carreno M.D. Mucus, Urine Moderate Abnormal None Seen [facility] Comment on above: Performed By: #### P REGUR, UIC ####Unless otherwise noted, all testing performed by [address] [phone]: [id number] Director: Otf Carreno M.D. Nitrite,Urine Negative Normal NEG;NEGATIV E [facility] Comment on above: Performed By: #### P REGUR, UIC ####Unless otherwise noted, all testing performed by [address] [phone]: [id number] Director: Otf Carreno M.D. pH Test strip (U) 6.0 [pH] Normal 4.5-8.0 [facility] Comment on above: Performed By: #### P REGUR, UIC ####Unless otherwise noted, all testing performed by [address] [phone]: [id number] Director: Otf Carreno M.D. Protein,Urine Negative Normal NEGATIVE;NE G [facility] Comment on above: Performed By: #### P REGUR, UIC ####Unless otherwise noted, all testing performed by [address] [phone]: [id number] Director: Otf Carreno M.D. RBC LM.HPF #/area (Urine sed) 3-5 Abnormal 0-3+;NS [facility] Comment on above: Performed By: #### P REGUR, UIC ####Unless otherwise noted, all testing performed by [address] [phone]: [id number] Director: Otf Carreno M.D. Specific [place],Urine >= 1.030 High 1.003-1.029 [facility] Comment on above: Performed By: #### P REGUR, UIC ####Unless otherwise noted, all testing performed by [address] [phone]: [id number] Director: Otf Carreno M.D. Squamous Epithelial 25-40 Abnormal 0-3+;NS [facility] Comment on above: Performed By: #### P REGUR, UIC ####Unless otherwise noted, all testing performed by [address] [phone]: [id number] Director: Otf Carreno M.D. Urobilinogen,Urine 0.2 EU/dL Normal 0.2 [facility] Comment on above: Performed By: #### P TILA, UIC ####Unless otherwise noted, all testing performed by [address] [phone]: [id number] Director: Otf Carreno M.D. WBC LM.HPF #/area (Urine sed) 3-5 Normal 0-3+;3-5+;N S [facility] Comment on above: Performed By: #### P TILA, UIC ####Unless otherwise noted, all testing performed by [address] [phone]: [id number] Director: Otf Carreno M.D. Wet Prepon 08-04-2017 Wet Prep Test Name: Wet Prep Culture Status: Final Trichomonas vaginalis: None Seen Clue Cells: None Seen Yeast: None Seen Normal [facility] Comment on above: Performed By: #### P TILA, UIC ####Unless otherwise noted, all testing performed by [address] [phone]: [id number] Director: Otf Carreno M.D. Culture, Urineon 06-05-2017 Culture, Urine Test Name: Culture, UrineCulture Status: FinalMicro Source: UrineORGANISM ID: 1 - >100,000 CFU/ml STAPHYLOCOCCUS SAPROPHYTICUSANTIBIOTIC INTERPRETATION JESUS STATUSClindamycin S 0.25 FDoxycycline S <= 0.5 FNitrofurantoin S <= 16 FOxacillin R 0.5 FVancomycin S <= 0.5 F Normal [facility] Comment on above: Performed By: #### P REGUR, UIC ####Unless otherwise noted, all testing performed by [address] [phone]: [id number] Director: Otf Carreno M.D. Test,Urine Qualon 06-05-2017 HCG.beta subunit ( test) Ql (U) Negative Normal Negative [facility] Comment on above: Result Comment: Rapi d test procedural control acceptable. Performed By: #### P REGUR UIC ####Unless otherwise noted, all testing performed by [address] [phone]: [id number] Director: tOf Carreno M.D. Urine with Indicated Culture on 06-05-2017 Bacteria LM.HPF #/area (Urine sed) Occasional Abnormal NS;RARE [facility] Comment on above: Performed By: #### P REGUR, UIC ####Unless otherwise noted, all testing performed by [address] [phone]: [id number] Director: Otf Carreno M.D. Bilirubin,Urine Negative Normal NEG;NEGATIV E [facility] Comment on above: Performed By: #### P REGUR, UIC ####Unless otherwise noted, all testing performed by [address] [phone]: [id number] Director: Otf Carreno M.D. Blood,Urine Moderate Abnormal NEG;NEGATIV E [facility] Comment on above: Performed By: #### P REGUR, UIC ####Unless otherwise noted, all testing performed by [address], [place] [phone]: [id number] Director: Otf Carreno M.D. Character Cloudy Normal [facility] Comment on above: Performed By: #### P REGUR, UIC ####Unless otherwise noted, all testing performed by [address] [phone]: [id number] Director: Otf Carreno M.D. Color Nom (U) Yellow Normal [facility] Comment on above: Performed By: #### P REGUR, UIC ####Unless otherwise noted, all testing performed by [address] [phone]: [id number] Director: Otf Carreno M.D. Glucose Ql (U) Negative Normal NEG;NEGATIV E [facility] Comment on above: Performed By: #### P REGUR, UIC ####Unless otherwise noted, all testing performed by [address] [phone]: [id number] Director: Otf Carreno M.D. Ketone,Urine Negative Normal NEGATIVE;NE G [facility] Comment on above: Performed By: #### P REGUR, UIC ####Unless otherwise noted, all testing performed by [address] [phone]: [id number] Director: Otf Carreno M.D. Leuk.Esterase,Urine Moderate Abnormal Negative [facility] Comment on above: Performed By: #### P REGUR, UIC ####Unless otherwise noted, all testing performed by [address] [phone]: [id number] Director: Otf Carreno M.D. Nitrite,Urine Negative Normal NEG;NEGATIV E [facility] Comment on above: Performed By: #### P REGUR, UIC ####Unless otherwise noted, all testing performed by [address] [phone]: [id number] Director: Otf Carreno M.D. pH Test strip (U) 5.5 [pH] Normal 4.5-8.0 [facility] Comment on above: Performed By: #### P REGUR, UIC ####Unless otherwise noted, all testing performed by [address] [phone]: [id number] Director: Otf Carreno M.D. Protein,Urine 30 mg/dL Normal [facility] Comment on above: Performed By: #### P REGUR, UIC ####Unless otherwise noted, all testing performed by [address] [phone]: [id number] Director: Otf Carreno M.D. RBC LM.HPF #/area (Urine sed) 3-5 Abnormal 0-3+;NS [facility] Comment on above: Performed By: #### P REGUR, UIC ####Unless otherwise noted, all testing performed by [address] [phone]: [id number] Director: Otf Carreno M.D. Specific [place],Urine 1.020 Normal 1.003-1.029 [facility] Comment on above: Performed By: #### P REGUR, UIC ####Unless otherwise noted, all testing performed by [address] [phone]: [id number] Director: Otf Carreno M.D. Squamous Epithelial 3-5 Abnormal 0-3+;NS [facility] Comment on above: Performed By: #### P REGUR, UIC ####Unless otherwise noted, all testing performed by [address] [phone]: [id number] Director: Otf Carreno M.D. Urobilinogen,Urine 0.2 EU/dL Normal 0.2 [facility] Comment on above: Performed By: #### P REGUR, UIC ####Unless otherwise noted, all testing performed by [address] [phone]: [id number] Director: Otf Carreno M.D. WBC LM.HPF #/area (Urine sed) 40-60 Abnormal 0-3+;3-5+;N S [facility] Comment on above: Performed By: #### P REGUR, UIC ####Unless otherwise noted, all testing performed by [address] [phone]: [id number] Director: Otf Carreno M.D. Test,Urine Qualon 04-18-2017 HCG.beta subunit ( test) Ql (U) Negative Normal Negative [facility] Comment on above: Result Comment: Rapi d test procedural control acceptable. Performed By: #### P REGUR, UIC ####Unless otherwise noted, all testing performed by [address] [phone]: [id number] Director: Otf Carreno M.D. Urine with Indicated Culture on 04-18-2017 Bacteria LM.HPF #/area (Urine sed) Occasional Abnormal NS;RARE [facility] Comment on above: Performed By: #### P REGUR, UIC ####Unless otherwise noted, all testing performed by [address] [phone]: [id number] Director: Otf Carreno M.D. Bilirubin,Urine Negative Normal NEG;NEGATIV E [facility] Comment on above: Performed By: #### P REGUR, UIC ####Unless otherwise noted, all testing performed by [address] [phone]: [id number] Director: Otf Carreno M.D. Blood,Urine Large Abnormal NEG;NEGATIV E [facility] Comment on above: Performed By: #### P REGUR, UIC ####Unless otherwise noted, all testing performed by [address] [phone]: [id number] Director: Otf Carreno M.D. Character Cloudy [facility] Comment on above: Performed By: #### P REGUR, UIC ####Unless otherwise noted, all testing performed by [address] [phone]: [id number] Director: Otf Carreno M.D. Color Nom (U) Regla Normal [facility] Comment on above: Performed By: #### P REGUR, UIC ####Unless otherwise noted, all testing performed by [address] [phone]: [id number] Director: Otf Carreno M.D. Glucose Ql (U) Negative Normal NEG;NEGATIV E [facility] Comment on above: Performed By: #### P REGUR, UIC ####Unless otherwise noted, all testing performed by [address] [phone]: [id number] Director: Otf Carreno M.D. Ketone,Urine Negative Normal NEGATIVE;NE G [facility] Comment on above: Performed By: #### P REGUR, UIC ####Unless otherwise noted, all testing performed by [address] [phone]: [id number] Director: Otf Carreno M.D. Leuk.Esterase,Urine Negative Normal Negative [facility] Comment on above: Performed By: #### P REGUR, UIC ####Unless otherwise noted, all testing performed by [address] [phone]: [id number] Director: Otf Carreno M.D. Nitrite,Urine Negative Normal NEG;NEGATIV E [facility] Comment on above: Performed By: #### P REGUR, UIC ####Unless otherwise noted, all testing performed by [address] [phone]: [id number] Director: Otf Carreno M.D. pH Test strip (U) 7.0 [pH] Normal 4.5-8.0 [facility] Comment on above: Performed By: #### P REGUR, UIC ####Unless otherwise noted, all testing performed by [address] [phone]: [id number] Director: Otf Carreno M.D. Protein,Urine Trace Abnormal NEGATIVE;NE G [facility] Comment on above: Performed By: #### P REGUR, UIC ####Unless otherwise noted, all testing performed by [address] [phone]: [id number] Director: Otf Carreno M.D. RBC LM.HPF #/area (Urine sed) Too Numerous to Count Abnormal 0-3+;NS [facility] Comment on above: Performed By: #### P REGUR, UIC ####Unless otherwise noted, all testing performed by [address] [phone]: [id number] Director: Otf Carreno M.D. Specific [place],Urine 1.025 Normal 1.003-1.029 [facility] Comment on above: Performed By: #### P REGUR, UIC ####Unless otherwise noted, all testing performed by [address] [phone]: [id number] Director: Otf Carreno M.D. Squamous Epithelial 10-15 Abnormal 0-3+;NS [facility] Comment on above: Performed By: #### P REGUR, UIC ####Unless otherwise noted, all testing performed by [address] [phone]: [id number] Director: Otf Carreno M.D. Urobilinogen,Urine 1.0 EU/dL High 0.2 [facility] Comment on above: Performed By: #### P REGUR, UIC ####Unless otherwise noted, all testing performed by [address], [place] [phone]: [id number] Director: Otf Carreno M.D. WBC LM.HPF #/area (Urine sed) 3-5 Normal 0-3+;3-5+;N S [facility] Comment on above: Performed By: #### P REGUR, UI ####Unless otherwise noted, all testing performed by [address] [phone]: [id number] Director: Otf Carreno M.D. CBC with Diffon 04-17-2017 Basophils Auto #/vol (Bld) 0.1 K/mcL Normal 0-0.2 [facility] Comment on above: Performed By: #### L IPASE, CBCDIF, CMET ####Unless otherwise noted, all testing performed by [address] [phone]: [id number] Director: Otf Carreno M.D. Basophils/100 WBC Auto (Bld) 0.9 % Normal [facility] Comment on above: Performed By: #### L IPASE, CBCDIF, CMET ####Unless otherwise noted, all testing performed by [address] [phone]: [id number] Director: Otf Carreno M.D. Eosinophils Auto #/vol (Bld) 0.7 K/mcL High 0-0.5 [facility] Comment on above: Performed By: #### L IPASE, CBCDIF, CMET ####Unless otherwise noted, all testing performed by [address] [phone]: [id number] Director: Otf Carreno M.D. Eosinophils/100 WBC Auto (Bld) 5.9 % Normal [facility] Comment on above: Performed By: #### L IPASE, CBCDIF, CMET ####Unless otherwise noted, all testing performed by [address] [phone]: [id number] Director: Otf Carreno M.D. Erythrocyte distribution width Auto Ratio (RBC) 13.2 % Normal 10-14.4 [facility] Comment on above: Performed By: #### L IPASE, CBCDIF, CMET ####Unless otherwise noted, all testing performed by [address] [phone]: [id number] Director: Otf Carreno M.D. Hematocrit Auto Volume Fraction (Bld) 38.2 % Normal 34.4-44.8 [facility] Comment on above: Performed By: #### L IPASE, CBCDIF, CMET ####Unless otherwise noted, all testing performed by [address] [phone]: [id number] Director: Otf Carreno M.D. Hemoglobin mass conc (Bld) 13.2 g/dL Normal 11.6-15.4 [facility] Comment on above: Performed By: #### L IPASE, CBCDIF, CMET ####Unless otherwise noted, all testing performed by [address] [phone]: [id number] Director: Otf Carreno M.D. Lymphocytes Auto #/vol (Bld) 3.1 K/mcL Normal 1.0-3.7 [facility] Comment on above: Performed By: #### L IPASE, CBCDIF, CMET ####Unless otherwise noted, all testing performed by [address] [phone]: [id number] Director: Otf Carreno M.D. Lymphocytes/100 WBC Auto (Bld) 26.9 % Normal [facility] Comment on above: Performed By: #### L IPASE, CBCDIF, CMET ####Unless otherwise noted, all testing performed by [address] [phone]: [id number] Director: Otf Carreno M.D. MCH Auto Entitic mass (RBC) 30.1 pg Normal 27.9-33.9 [facility] Comment on above: Performed By: #### L IPASE, CBCDIF, CMET ####Unless otherwise noted, all testing performed by [address] [phone]: [id number] Director: Otf Carreno M.D. MCHC Auto mass conc (RBC) 34.6 g/dL Normal 33.1-35.1 [facility] Comment on above: Performed By: #### L IPASE, CBCDIF, CMET ####Unless otherwise noted, all testing performed by [address] [phone]: [id number] Director: Otf Crareno M.D. MCV Auto Entitic volume (RBC) 87.1 fL Normal 82.6-98.9 [facility] Comment on above: Performed By: #### L IPASE, CBCDIF, CMET ####Unless otherwise noted, all testing performed by [address] [phone]: [id number] Director: Otf Carreno M.D. Monocytes Auto #/vol (Bld) 0.8 K/mcL High 0.1-0.6 [facility] Comment on above: Performed By: #### L IPASE, CBCDIF, CMET ####Unless otherwise noted, all testing performed by [place] [phone]: [id number] Director: Otf Carreno M.D. Monocytes/100 WBC Auto (Bld) 7.3 % Normal [facility] Comment on above: Performed By: #### L IPASE, CBCDIF, CMET ####Unless otherwise noted, all testing performed by [place] [phone]: [id number] Director: Otf Carreno M.D. Neutrophils Auto #/vol (Bld) 6.8 K/mcL Normal 1.2-6.9 [facility] Comment on above: Performed By: #### L IPASE, CBCDIF, CMET ####Unless otherwise noted, all testing performed by [place] [phone]: [id number] Director: Otf Carreno M.D. Platelet mean volume Auto Entitic volume (Bld) 9.1 fL Normal 7.0-10.6 [facility] Comment on above: Performed By: #### L IPASE, CBCDIF, CMET ####Unless otherwise noted, all testing performed by [address] [phone]: [id number] Director: Otf Carreno M.D. Platelets Auto #/vol (Bld) 260 K/mcL Normal 162-402 [facility] Comment on above: Performed By: #### L IPASE, CBCDIF, CMET ####Unless otherwise noted, all testing performed by [address] [phone]: [id number] Director: Otf Carreno M.D. RBC Auto #/vol (Bld) 4.39 M/mcL Normal 3.7-5.0 [facility] Comment on above: Performed By: #### L IPASE, CBCDIF, CMET ####Unless otherwise noted, all testing performed by [address] [phone]: [id number] Director: Otf Carreno M.D. Segmented Neut % 59.0 % Normal [facility] Comment on above: Performed By: #### L IPASE, CBCDIF, CMET ####Unless otherwise noted, all testing performed by [address] [phone]: [id number] Director: Otf Carreno M.D. WBC Auto #/vol (Bld) 11.5 K/mcL High 3.4-10.6 [facility] Comment on above: Performed By: #### L IPASE, CBCDIF, CMET ####Unless otherwise noted, all testing performed by [address] [phone]: [id number] Director: Otf Carreno M.D. Comprehensive Metabolic Pane antoine 04-17-2017 Albumin mass conc 3.7 g/dL Normal 3.2-5.2 [facility] Comment on above: Performed By: #### P REGUR, UIC ####Unless otherwise noted, all testing performed by [address] [phone]: [id number] Director: Otf Carreno M.D. ALP enzyme act/vol 67 U/L Normal 40-140 [facility] Comment on above: Performed By: #### Kelin ADORNO, [facility] ####Unless otherwise noted, all testing performed by [address] [phone]: [id number] Director: Otf Carreno M.D. ALT enzyme act/vol 16 U/L Normal 14-65 [facility] Comment on above: Result Comment: This test result might be falsely depressed or falsely elevated onsamples drawn from patients taking Sulfasalazine and Sulfapyridine.Venipuncture should occur prior to taking either of these drugs. Performed By: #### Kelin ADORNO [facility] ####Unless otherwise noted, all testing performed by [address] [phone]: [id number] Director: Otf Carreno M.D. AST enzyme act/vol 11 U/L Normal 0-45 [facility] Comment on above: Result Comment: This test result might be falsely depressed or falsely elevated onsamples drawn from patients taking Sulfasalazine and Sulfapyridine.Venipuncture should occur prior to taking either of these drugs. Performed By: #### Kelin ADORNO [facility] ####Unless otherwise noted, all testing performed by [address] [phone]: [id number] Director: Otf Carreno M.D. Bilirubin mass conc 0.2 mg/dL Low 0.3-1.2 [facility] Comment on above: Performed By: #### Kelin ADONRO, [facility] ####Unless otherwise noted, all testing performed by [address] [phone]: [id number] Director: Otf Carreno M.D. Calcium mass conc 9.3 mg/dL Normal 8.4-10.2 [facility] Comment on above: Performed By: #### P REGUR, UIC ####Unless otherwise noted, all testing performed by [address] [phone]: [id number] Director: Otf Carreno M.D. Chloride molar conc 111 mmol/L High 98-108 [facility] Comment on above: Performed By: #### P REGUR, UIC ####Unless otherwise noted, all testing performed by [address] [phone]: [id number] Director: Otf Carreno M.D. CO2 molar conc 24 mmol/L Normal 21-32 [facility] Comment on above: Performed By: #### P REGUR, UIC ####Unless otherwise noted, all testing performed by [address] [phone]: [id number] Director: Otf Carreno M.D. Creatinine mass conc 0.80 mg/dL Normal 0.40-1.10 [facility] Comment on above: Performed By: #### P REGUR, UIC ####Unless otherwise noted, all testing performed by [address] [phone]: [id number] Director: Otf Carreno M.D. GFR/1.73 sq M predicted among blacks MDRD vol rate/area (S/P/Bld) mL/min/{1.73_m2} Normal [facility] Comment on above: Result Comment: Afri can Croatian GFR Calc Performed By: #### Kelin ADORNO C ####Unless otherwise noted, all testing performed by [address] [phone]: [id number] Director: Otf Carreno M.D. GFR/1.73 sq M predicted among non-blacks MDRD vol rate/area (S/P/Bld) mL/min/{1.73_m2} Normal [facility] Comment on above: Result Comment: Non- GFR CalceGFR is an estimated Glomerular Filtration Rate based on the valueof the patient's serum creatinine. In outpatients, eGFR should be usedas a helpful tool in screening for CKD. In inpatients or patients withacute renal failure, eGFR represents the GFR at the moment of the drawand should be used with caution. Performed By: #### JOSÉ MANUEL CALHOUN ####Unless otherwise noted, all testing performed by [address] [phone]: [id number] Director: Otf Carreno M.D. Glucose mass conc 83 mg/dL Normal 70-99 [facility] Comment on above: Result Comment: This test result might be falsely depressed or falsely elevated onsamples drawn from patients taking Sulfasalazine and Sulfapyridine.Venipuncture should occur prior to taking either of these drugs. Performed By: #### Kelin ADORNO UIC ####Unless otherwise noted, all testing performed by [address] [phone]: [id number] Director: Otf Carreno M.D. Potassium molar conc 3.7 mmol/L Normal 3.5-5.1 [facility] Comment on above: Performed By: #### Kelin ADORNO UIC ####Unless otherwise noted, all testing performed by [address] [phone]: [id number] Director: Otf Carreno M.D. Protein mass conc 7.4 g/dL Normal 6.0-8.0 [facility] Comment on above: Performed By: #### P REGUR, UIC ####Unless otherwise noted, all testing performed by [address] [phone]: [id number] Director: Otf Carreno M.D. Sodium molar conc 140 mmol/L Normal 135-145 [facility] Comment on above: Performed By: #### P REGUR, UIC ####Unless otherwise noted, all testing performed by [address] [phone]: [id number] Director: Otf Carreno M.D. Urea nitrogen mass conc 10 mg/dL Normal 8-25 [facility] Comment on above: Performed By: #### P REGUR, UIC ####Unless otherwise noted, all testing performed by [address] [phone]: [id number] Director: Otf Carreno M.D. Lipaseon 04-17-2017 Lipase enzyme act/vol 81 U/L Normal 73-393 [facility] Comment on above: Performed By: #### P REGUR, UIC ####Unless otherwise noted, all testing performed by [address] [phone]: [id number] Director: Otf Carreno M.D. Culture, Urineon 03-31-2017 Culture, Urine Test Name: Culture, UrineCulture Status: FinalMicro Source: UrineORGANISM ID: 1 - 10,000-25,000 CFU/ml ESCHERICHIA COLI AVOID fluoroquinolone treatment whenever possible. Risk of serious side effects may outweigh benefit.ANTIBIOTIC INTERPRETATION JESUS STATUSAmpicillin S <= 2 FAmp/Sulbactam S <= 2 FCefazolin S <= 4 FCefepime S <= 1 FCeftazidime S <= 1 FCeftriaxone S <= 1 FCiprofloxacin S <= 0.25 FGentamicin S <= 1 FNitrofurantoin S <= 16 FPiperacillin/Tazo S <= 4 FTobramycin S <= 1 FTrimeth/Sulfa S <= 20 F Normal [facility] Comment on above: Performed By: #### U RCUL ####Unless otherwise noted, all testing performed by [facility] [place], [place] [phone]: [id number] Director: Otf Carreno M.D. Test,Urine Qualon 03-31-2017 HCG.beta subunit ( test) Ql (U) Negative Normal Negative [facility] Comment on above: Result Comment: Rapi d test procedural control acceptable. Performed By: #### P REGUR, UIC ####Unless otherwise noted, all testing performed by [address] [phone]: [id number] Director: Otf Carreno M.D. Urine with Indicated Culture on 03-31-2017 Bacteria LM.HPF #/area (Urine sed) Occasional Abnormal NS;RARE [facility] Comment on above: Performed By: #### P REGUR, UIC ####Unless otherwise noted, all testing performed by [address] [phone]: [id number] Director: Otf Carreno M.D. Bilirubin,Urine Negative Normal NEG;NEGATIV E [facility] Comment on above: Performed By: #### P REGUR, UIC ####Unless otherwise noted, all testing performed by [address] [phone]: [id number] Director: Otf Carreno M.D. Blood,Urine Small Abnormal NEG;NEGATIV E [facility] Comment on above: Performed By: #### P REGUR, UIC ####Unless otherwise noted, all testing performed by [address] [phone]: [id number] Director: Otf Carreno M.D. Character Slightly Cloudy Normal [facility] Comment on above: Performed By: #### P REGUR, UIC ####Unless otherwise noted, all testing performed by [address] [phone]: [id number] Director: Otf Carreno M.D. Color Nom (U) [place] Normal [facility] Comment on above: Result Comment: ;Ora nge color of urine may produce color interference on test stripreading. Performed By: #### P REGUR, UIC ####Unless otherwise noted, all testing performed by [address] [phone]: [id number] Director: Otf Carreno M.D. Glucose Ql (U) 100 mg/dL Normal [facility] Comment on above: Performed By: #### P REGUR, UIC ####Unless otherwise noted, all testing performed by [address] [phone]: [id number] Director: Otf Carreno M.D. Ketone,Urine Trace Abnormal NEGATIVE;NE G [facility] Comment on above: Performed By: #### P REGUR, UIC ####Unless otherwise noted, all testing performed by [address] [phone]: [id number] Director: Otf Carreno M.D. Leuk.Esterase,Urine Negative Normal Negative [facility] Comment on above: Performed By: #### P REGUR, UIC ####Unless otherwise noted, all testing performed by [address] [phone]: [id number] Director: Otf Carreno M.D. Nitrite,Urine Positive Abnormal NEG;NEGATIV E [facility] Comment on above: Result Comment: ;Pos sible color interference Performed By: #### P REGUR, UIC ####Unless otherwise noted, all testing performed by [address] [phone]: [id number] Director: Otf Carreno M.D. pH Test strip (U) 8.5 [pH] High 4.5-8.0 [facility] Comment on above: Performed By: #### P REGUR, UIC ####Unless otherwise noted, all testing performed by [address] [phone]: [id number] Director: Otf Carreno M.D. Protein,Urine 100 mg/dL Normal [facility] Comment on above: Performed By: #### P REGUR, UIC ####Unless otherwise noted, all testing performed by [address] [phone]: [id number] Director: Otf Carreno M.D. RBC LM.HPF #/area (Urine sed) 10-15 Abnormal 0-3+;NS [facility] Comment on above: Performed By: #### P REGUR, UIC ####Unless otherwise noted, all testing performed by [address] [phone]: [id number] Director: Otf Carreno M.D. Specific [place],Urine 1.020 Normal 1.003-1.029 [facility] Comment on above: Performed By: #### P REGUR, UIC ####Unless otherwise noted, all testing performed by [address] [phone]: [id number] Director: Otf Carreno M.D. Squamous Epithelial 5-10 Abnormal 0-3+;NS [facility] Comment on above: Performed By: #### P REGUR, UIC ####Unless otherwise noted, all testing performed by [address] [phone]: [id number] Director: Otf Carreno M.D. Urobilinogen,Urine 2.0 EU/dL High 0.2 [facility] Comment on above: Performed By: #### P REGUR, UIC ####Unless otherwise noted, all testing performed by [address] [phone]: [id number] Director: Otf Carreno M.D. WBC LM.HPF #/area (Urine sed) 15-25 Abnormal 0-3+;3-5+;N S [facility] Comment on above: Performed By: #### P REGUR, UIC ####Unless otherwise noted, all testing performed by [address] [phone]: [id number] Director: Otf Carreno M.D. CBC and Differentialon 02-18 Basophils 0.4 % Invalid Interpretation Code [facility] Basophils 0.0 K/mcL Invalid Interpretation Code 0 - 0.2 [facility] Eosinophils 0.2 K/mcL Invalid Interpretation Code 0 - 0.5 [facility] Erythrocytes (RBC) 4.71 M/mcL Invalid Interpretation Code 3.7 - 5.0 [facility] Hematocrit (HCT) 42.1 % Normal 34.4-44.8 [facility] Comment on above: Performed By: #### L IPASE, CBCDIF, CMET ####Unless otherwise noted, all testing performed by [address] [phone]: [id number] Director: Otf Carreno M.D. Hemoglobin (HGB) 14.1 g/dL Normal 11.6-15.4 [facility] Comment on above: Performed By: #### L IPASE, CBCDIF, CMET ####Unless otherwise noted, all testing performed by [address] [phone]: [id number] Director: Otf Carreno M.D. Interpretation and review of laboratory results Abnormal Invalid Interpretation Code [facility] Lymphocytes 3.3 K/mcL Invalid Interpretation Code 1.0 - 3.7 [facility] MCH 29.9 pg Normal 27.9-33.9 [facility] Comment on above: Performed By: #### L IPASE, CBCDIF, CMET ####Unless otherwise noted, all testing performed by [address] [phone]: [id number] Director: Otf Carreno M.D. MCHC 33.5 g/dL Normal 33.1-35.1 [facility] Comment on above: Performed By: #### L IPASE, CBCDIF, CMET ####Unless otherwise noted, all testing performed by [address] [phone]: [id number] Director: Otf Carreno M.D. MCV 89.4 fL Normal 82.6-98.9 [facility] Comment on above: Performed By: #### L IPASE, CBCDIF, CMET ####Unless otherwise noted, all testing performed by [address] [phone]: [id number] Director: Otf Carreno M.D. Monocytes 1.4 K/mcL High 0.1 - 0.6 [facility] Neutrophils 6.2 K/mcL Invalid Interpretation Code 1.2 - 6.9 [facility] Platelet mean volume (PMV) 9.1 fL Normal 7.0-10.6 [facility] Comment on above: Performed By: #### L IPASE, CBCDIF, CMET ####Unless otherwise noted, all testing performed by [address] [phone]: [id number] Director: Otf Carreno M.D. Platelets 255 K/mcL Invalid Interpretation Code 162 - 402 [facility] RDW-CA 13.1 % Normal 10-14.4 [facility] Comment on above: Performed By: #### L IPASE, CBCDIF, CMET ####Unless otherwise noted, all testing performed by [address] [phone]: [id number] Director: Otf Carreno M.D. Segmented Neut 55.3 % Invalid Interpretation Code [facility] T8 suppressor/100 cells 2.2 10*3/uL Invalid Interpretation Code [facility] T8 suppressor/100 cells 29.4 10*3/uL Invalid Interpretation Code [facility] T8 suppressor/100 cells 12.7 10*3/uL Invalid Interpretation Code [facility] WBC (Leukocytes) 11.3 K/mcL High 3.4 - 10.6 [facility] CBC with Diffon 02-18-2017 Basophils Auto #/vol (Bld) 0.0 K/mcL Normal 0-0.2 [facility] Comment on above: Performed By: #### L IPASE, CBCDIF, CMET ####Unless otherwise noted, all testing performed by [address] [phone]: [id number] Director: Otf Carreno M.D. Basophils/100 WBC Auto (Bld) 0.4 % Normal [facility] Comment on above: Performed By: #### L IPASE, CBCDIF, CMET ####Unless otherwise noted, all testing performed by [address] [phone]: [id number] Director: Otf Carreno M.D. Eosinophils Auto #/vol (Bld) 0.2 K/mcL Normal 0-0.5 [facility] Comment on above: Performed By: #### L IPASE, CBCDIF, CMET ####Unless otherwise noted, all testing performed by [address] [phone]: [id number] Director: Otf Carreno M.D. Eosinophils/100 WBC Auto (Bld) 2.2 % Normal [facility] Comment on above: Performed By: #### L IPASE, CBCDIF, CMET ####Unless otherwise noted, all testing performed by [address] [phone]: [id number] Director: Otf Carreno M.D. Lymphocytes Auto #/vol (Bld) 3.3 K/mcL Normal 1.0-3.7 [facility] Comment on above: Performed By: #### L IPASE, CBCDIF, CMET ####Unless otherwise noted, all testing performed by [address] [phone]: [id number] Director: Otf Carreno M.D. Lymphocytes/100 WBC Auto (Bld) 29.4 % Normal [facility] Comment on above: Performed By: #### L IPASE, CBCDIF, CMET ####Unless otherwise noted, all testing performed by [place] [phone]: [id number] Director: Otf Carreno M.D. Monocytes Auto #/vol (Bld) 1.4 K/mcL High 0.1-0.6 [facility] Comment on above: Performed By: #### L IPASE, CBCDIF, CMET ####Unless otherwise noted, all testing performed by [place] [phone]: [id number] Director: Otf Carreno M.D. Monocytes/100 WBC Auto (Bld) 12.7 % Normal [facility] Comment on above: Performed By: #### L IPASE, CBCDIF, CMET ####Unless otherwise noted, all testing performed by [address] [phone]: [id number] Director: Otf Carreno M.D. Neutrophils Auto #/vol (Bld) 6.2 K/mcL Normal 1.2-6.9 [facility] Comment on above: Performed By: #### L IPASE, CBCDIF, CMET ####Unless otherwise noted, all testing performed by [address] [phone]: [id number] Director: Otf Carreno M.D. Platelets Auto #/vol (Bld) 255 K/mcL Normal 162-402 [facility] Comment on above: Performed By: #### L IPASE, CBCDIF, CMET ####Unless otherwise noted, all testing performed by [address] [phone]: [id number] Director: Otf Carreno M.D. RBC Auto #/vol (Bld) 4.71 M/mcL Normal 3.7-5.0 [facility] Comment on above: Performed By: #### L IPASE, CBCDIF, CMET ####Unless otherwise noted, all testing performed by [address] [phone]: [id number] Director: Otf Carreno M.D. Segmented Neut % 55.3 % Normal [facility] Comment on above: Performed By: #### L IPASE, CBCDIF, CMET ####Unless otherwise noted, all testing performed by [address] [id number]: [id number] Director: Otf Carreno M.D. WBC Auto #/vol (Bld) 11.3 K/mcL High 3.4-10.6 [facility] Comment on above: Performed By: #### L IPASE, CBCDIF, CMET ####Unless otherwise noted, all testing performed by [address] [phone]: [id number] Director: Otf Carreno M.D. CT ABDO,PELVIS W/O CONTRASTo n 02-18-2017 CT ABDO,PELVIS W/O CONTRAST Final ReportAccession No: [id number] Performed: Feb 18 2017 12:13AMExamination: CT ABDO,PELVIS W/O CONTRASTEXAM TYPE: CT ABDOMEN AND PELVIS W/O CONTRAST.EXAM DATE AND TIME: 02/18/2017 12:13 AM.INDICATION: 21-year-old female with diffuse abdominal pain.COMPARISON: None.TECHNIQUE: CT imaging of the abdomen and pelvis without intravenouscontrast.Dose reduction techniques were achieved by using automated exposurecontroland/or adjustment of mA and/or kV according to patient size and/or use ofiterative reconstruction technique.FINDINGS:LOWER CHEST: Normal.ABDOMEN:LIVER: Normal.BILE DUCTS: Normal caliber.GALLBLADDER: Contracted.PANCREAS: Normal.SPLEEN: Normal.ADRENALS: Normal.KIDNEYS: No hydronephrosis or nephrolithiasis.PELVIS:REPROD UCTIVE ORGANS: No pelvic masses.URETERS: Normal caliber.BLADDER: Partially distended without focal wall abnormality. No bladdercalculi.BOWEL: Large diffuse amount of colonic stool without bowel obstruction.Nonvisualization of the appendix.PERITONEUM: No free intraperitoneal air. No ascites or fluid collection.VESSELS: Normal.LYMPH NODES: No enlarged lymph nodes.ABDOMINAL WALL: Normal.BONES: No destructive lesions.IMPRESSION:1. Large diffuse colonic stool burden without bowel obstruction. Pleasecorrelate for underlying constipation.2. Nonvisualization of the appendix. No inflammatory changes in theexpectedregion.3. No hydronephrosis or urolithiasis.Interpreting Physician: CM KEVIN D.O.Trans: medwar : cc: Normal [facility] Comprehensive Metabolic Pane antoine 02-18-2017 Alanine aminotransferase (ALT) 16 U/L Normal 14-65 [facility] Comment on above: Result Comment: This test result might be falsely depressed or falsely elevated onsamples drawn from patients taking Sulfasalazine and Sulfapyridine.Venipuncture should occur prior to taking either of these drugs. Performed By: #### L IPASE, CBCDIF, CMET ####Unless otherwise noted, all testing performed by [address] [phone]: [id number] Director: Otf Carreno M.D. Albumin 2.9 g/dL Low 3.2-5.2 [facility] Comment on above: Performed By: #### L IPASE, CBCDIF, CMET ####Unless otherwise noted, all testing performed by [address] [phone]: [id number] Director: Otf Carreno M.D. Alkaline phosphatase (ALP) 57 U/L Normal 40-140 [facility] Comment on above: Performed By: #### L IPASE, CBCDIF, CMET ####Unless otherwise noted, all testing performed by [address] [phone]: [id number] Director: Otf Carreno M.D. Aspartate aminotransferase (AST) 9 U/L Normal 0-45 [facility] Comment on above: Result Comment: This test result might be falsely depressed or falsely elevated onsamples drawn from patients taking Sulfasalazine and Sulfapyridine.Venipuncture should occur prior to taking either of these drugs. Performed By: #### L IPASE, CBCDIF, CMET ####Unless otherwise noted, all testing performed by [address] [phone]: [id number] Director: Otf Carreno M.D. Bilirubin mass conc 0.4 mg/dL Normal 0.3-1.2 [facility] Comment on above: Performed By: #### L IPASE, CBCDIF, CMET ####Unless otherwise noted, all testing performed by [address] [phone]: [id number] Director: Otf Carreno M.D. Calcium 8.8 mg/dL Normal 8.4-10.2 [facility] Comment on above: Performed By: #### L IPASE, CBCDIF, CMET ####Unless otherwise noted, all testing performed by [address] [phone]: [id number] Director: Otf Carreno M.D. Chloride 111 mmol/L High 98-108 [facility] Comment on above: Performed By: #### L IPASE, CBCDIF, CMET ####Unless otherwise noted, all testing performed by [address] [phone]: [id number] Director: Otf Carreno M.D. CO2 17 mmol/L Low 21-32 [facility] Comment on above: Performed By: #### L IPASE, CBCDIF, CMET ####Unless otherwise noted, all testing performed by [address] [phone]: [id number] Director: Otf Carreno M.D. Creatinine 0.74 mg/dL Normal 0.40-1.10 [facility] Comment on above: Performed By: #### L IPASE, CBCDIF, CMET ####Unless otherwise noted, all testing performed by [address] [phone]: [id number] Director: Otf Carreno M.D. eGFR (black) mL/min/{1.73_m2} Normal [facility] Comment on above: Result Comment: Afri can Croatian GFR Calc Performed By: #### L IPASE, CBCDIF, CMET ####Unless otherwise noted, all testing performed by [facility] [address] [phone]: [id number] Director: Otf Carreno M.D. eGFR (non-black) mL/min/{1.73_m2} Normal [facility] Comment on above: Result Comment: Non- GFR CalceGFR is an estimated Glomerular Filtration Rate based on the valueof the patient's serum creatinine. In outpatients, eGFR should be usedas a helpful tool in screening for CKD. In inpatients or patients withacute renal failure, eGFR represents the GFR at the moment of the drawand should be used with caution. Performed By: #### L IPASE, CBCDIF, CMET ####Unless otherwise noted, all testing performed by [address] [phone]: [id number] Director: Otf Carreno M.D. Glucose 96 mg/dL Invalid Interpretation Code 70 - 99 mg/dL [facility] Glucose mass conc 96 mg/dL Normal 70-99 [facility] Comment on above: Result Comment: This test result might be falsely depressed or falsely elevated onsamples drawn from patients taking Sulfasalazine and Sulfapyridine.Venipuncture should occur prior to taking either of these drugs. Performed By: #### L IPASE, CBCDIF, CMET ####Unless otherwise noted, all testing performed by [address] [phone]: [id number] Director: Otf Carreno M.D. Interpretation and review of laboratory results Abnormal Invalid Interpretation Code [facility] Potassium 3.7 mmol/L Normal 3.5-5.1 [facility] Comment on above: Performed By: #### L IPASE, CBCDIF, CMET ####Unless otherwise noted, all testing performed by [address] [phone]: [id number] Director: Otf Carreno M.D. Protein 7.0 g/dL Normal 6.0-8.0 [facility] Comment on above: Performed By: #### L IPASE, CBCDIF, CMET ####Unless otherwise noted, all testing performed by [address] [phone]: [id number] Director: Otf Carreno M.D. Sodium 136 mmol/L Normal 135-145 [facility] Comment on above: Performed By: #### L IPASE, CBCDIF, CMET ####Unless otherwise noted, all testing performed by [address] [phone]: [id number] Director: Otf Carreno M.D. Urea nitrogen 13 mg/dL Normal 8-25 [facility] Comment on above: Performed By: #### L IPASE, CBCDIF, CMET ####Unless otherwise noted, all testing performed by [address] [phone]: [id number] Director: Otf Carreno M.D. Urine, bilirubin presence 0.4 mg/dL Invalid Interpretation Code 0.3 - 1.2 mg/dL [facility] Lipaseon 02-18-2017 Lipase 94 U/L Normal 73-393 [facility] Comment on above: Performed By: #### L IPASE, CBCDIF, CMET ####Unless otherwise noted, all testing performed by [address] [phone]: [id number] Director: Otf Carreno M.D. Preg test, Urine Qualon 01-22 Preg Test, Urine Qual Negative Invalid Interpretation Code Negative [facility] Test,Urine Qualon 02-18-2017 HCG.beta subunit ( test) Ql (U) Negative Normal Negative [facility] Comment on above: Result Comment: Rapi d test procedural control acceptable. Performed By: #### P REGUR, UIC ####Unless otherwise noted, all testing performed by [address] [phone]: [id number] Director: Otf Carreno M.D. Urine with Indicated Culture on 02-18-2017 Bilirubin, Urine Negative Normal NEG;NEGATIV E [facility] Comment on above: Performed By: #### P REGUR, UIC ####Unless otherwise noted, all testing performed by [address] [phone]: [id number] Director: Otf Carreno M.D. Blood, Urine Trace Abnormal NEG;NEGATIV E [facility] Comment on above: Performed By: #### P REGUR, UIC ####Unless otherwise noted, all testing performed by [address] [phone]: [id number] Director: Otf Carreno M.D. Character slightly Cloudy Normal [facility] Comment on above: Performed By: #### P REGUR, UIC ####Unless otherwise noted, all testing performed by [address] [phone]: [id number] Director: Otf Carreno M.D. Interpretation and review of laboratory results Abnormal Invalid Interpretation Code [facility] Ketone,Urine Negative Normal NEGATIVE;NE G [facility] Comment on above: Performed By: #### P REGUR, UIC ####Unless otherwise noted, all testing performed by [address] [phone]: [id number] Director: Otf Carreno M.D. Leuk.Esterase,Urine Trace Abnormal Negative [facility] Comment on above: Performed By: #### P REGUR, UIC ####Unless otherwise noted, all testing performed by [address] [phone]: [id number] Director: Otf Carreno M.D. Nitrite, Urine Negative Normal NEG;NEGATIV E [facility] Comment on above: Performed By: #### P REGUR, UIC ####Unless otherwise noted, all testing performed by [address] [phone]: [id number] Director: Otf Carreno M.D. Protein, Urine Negative Normal NEGATIVE;NE G [facility] Comment on above: Performed By: #### P REGUR, UIC ####Unless otherwise noted, all testing performed by [address] [phone]: [id number] Director: Otf Carreno M.D. RBC LM.HPF #/area (Urine sed) 0-3 Normal 0-3+;NS [facility] Comment on above: Performed By: #### P REGUR, UIC ####Unless otherwise noted, all testing performed by [address] [phone]: [id number] Director: Otf Carreno M.D. RBCs, Urine 0-3 Invalid Interpretation Code 0-3+;NS /HPF [facility] Specific [place],Urine 1.020 Normal 1.003-1.029 [facility] Comment on above: Performed By: #### P REGUR, UIC ####Unless otherwise noted, all testing performed by [address] [phone]: [id number] Director: Otf Carreno M.D. Squamous Epithelial 15-25 Abnormal 0-3+;NS [facility] Comment on above: Performed By: #### P REGUR, UIC ####Unless otherwise noted, all testing performed by [address] [phone]: [id number] Director: Otf Carreno M.D. Urine, bacteria in sediment Rare Normal NS;RARE [facility] Comment on above: Performed By: #### P REGUR, UIC ####Unless otherwise noted, all testing performed by [address] [phone]: [id number] Director: Otf Carreno M.D. Urine, character slightly Cloudy Invalid Interpretation Code [facility] Urine, color Yellow Normal [facility] Comment on above: Performed By: #### P REGUR, UIC ####Unless otherwise noted, all testing performed by [address] [phone]: [id number] Director: Otf Carreno M.D. Urine, glucose presence Negative Normal NEG;NEGATIV E [facility] Comment on above: Performed By: #### P REGUR, UIC ####Unless otherwise noted, all testing performed by [address] [phone]: [id number] Director: Otf Carreno M.D. Urine, ketones presence Negative Invalid Interpretation Code NEGATIVE;NE G mg/dL [facility] Urine, leukocyte esterase presence Trace Abnormal Negative [facility] Urine, pH 7.0 [pH] Normal 4.5-8.0 [facility] Comment on above: Performed By: #### P REGUR, UIC ####Unless otherwise noted, all testing performed by [address] [phone]: [id number] Director: Otf Carreno M.D. Urine, specific gravity 1.020 1 Invalid Interpretation Code 1.003 - 1.029 [facility] Urobilinogen, Urine 0.2 EU/dL Normal 0.2 [facility] Comment on above: Performed By: #### P REGUR, UIC ####Unless otherwise noted, all testing performed by [address] [phone]: [id number] Director: Otf Carreno M.D. WBC LM.HPF #/area (Urine sed) 3-5 Normal 0-3+;3-5+;N S [facility] Comment on above: Performed By: #### P REGUR, UIC ####Unless otherwise noted, all testing performed by [address] [phone]: [id number] Director: Otf Carreno M.D. WBCs, Urine 3-5 Invalid Interpretation Code 0-3+;3-5+;N S /HPF [facility] Vital Signs Date Time Vital Sign Value Performing Clinician Facility 11-21-2023 08:59-0400 Body height 162.56 cm RUBÉN Alanis Work Phone: [facility] 11-21-2023 08:59-0400 Body mass index (BMI) [Ratio] 32.3 kg/m2 RUBÉN Alanis Work Phone: [facility] 11-21-2023 08:59-0400 Body temperature 97.5 [degF] RUBÉN Alanis Work Phone: [facility] 11-21-2023 08:59-0400 Body weight 85.5 kg TECHNICAL SUPPORT ASSOCIATE Harvinder Annabelle Work Phone: [facility] 11-21-2023 08:59-0400 Diastolic blood pressure 80 mm[Hg] TECHNICAL SUPPORT ASSOCIATE Harvinder Annabelle Work Phone: [facility] 11-21-2023 08:59-0400 SaO2% (BldA) [Mass fraction] 98 % TECHNICAL SUPPORT ASSOCIATE Harvinder Annabelle Work Phone: [facility] 11-21-2023 08:59-0400 Systolic blood pressure 124 mm[Hg] TECHNICAL SUPPORT ASSOCIATE Harvinder Annabelle Work Phone: [facility] 11-19-2023 13:46-0400 Body temperature 98.7 [degF] TECHNICAL SUPPORT ASSOCIATE Harvinder Annabelle Work Phone: [facility] 11-19-2023 13:46-0400 Diastolic blood pressure 71 mm[Hg] TECHNICAL SUPPORT ASSOCIATE Harvinder Annabelle Work Phone: [facility] 11-19-2023 13:46-0400 Heart rate 84 /min TECHNICAL SUPPORT ASSOCIATE Harvinder Annabelle Work Phone: [facility] 11-19-2023 13:46-0400 SaO2% (BldA) [Mass fraction] 99 % TECHNICAL SUPPORT ASSOCIATE Harvinder Annabelle Work Phone: [facility] 11-19-2023 13:46-0400 Systolic blood pressure 115 mm[Hg] TECHNICAL SUPPORT ASSOCIATE Harvinder Annabelle Work Phone: [facility] 11-19-2023 13:44-0400 Body height 162.56 cm TECHNICAL SUPPORT ASSOCIATE Harvinder Annabelle Work Phone: [facility] 11-19-2023 13:44-0400 Body weight 83.91 kg TECHNICAL SUPPORT ASSOCIATE Harvinder Annabelle Work Phone: [facility] 11-19-2023 13:44-0400 Respiratory rate 20 /min TECHNICAL SUPPORT ASSOCIATE Harvinder Annabelle Work Phone: [facility] 06-29-2023 13:35-0400 Body temperature 98.4 [degF] Maycol Quintanilla MD Work Phone: [facility] 06-29-2023 13:35-0400 Diastolic blood pressure 62 mm[Hg] Maycol Quintanilla MD Work Phone: [facility] 06-29-2023 13:35-0400 Heart rate 50 /min Maycol Quintanilla MD Work Phone: [facility] 06-29-2023 13:35-0400 Respiratory rate 17 /min Maycol Quintanilla MD Work Phone: [facility] 06-29-2023 13:35-0400 SaO2% (BldA) [Mass fraction] 100 % Maycol Quintanilla MD Work Phone: [facility] 06-29-2023 13:35-0400 Systolic blood pressure 125 mm[Hg] Maycol Quintanilla MD Work Phone: [facility] 03-24-2022 11:13-0500 Blood Pressure Location Ana Bynum [facility] 03-24-2022 11:13-0500 Body temperature 98.06 [degF] Ana Bynum [facility] 03-24-2022 11:13-0500 Diastolic blood pressure 68 mm[Hg] Ana Bynum [facility] 03-24-2022 11:13-0500 Heart rate 71 /min Ana Bynum [facility] 03-24-2022 11:13-0500 SaO2% (BldA) [Mass fraction] 98 % Ana Bynum [facility] 03-24-2022 11:13-0500 Systolic blood pressure 122 mm[Hg] Ana Bynum [facility] 01-20-2022 10:48-0500 Blood Pressure Location Ana Bynum [facility] 01-20-2022 10:48-0500 Body temperature 98.06 [degF] Ana Bynum [facility] 01-20-2022 10:48-0500 Diastolic blood pressure 60 mm[Hg] Ana Bynum [facility] 01-20-2022 10:48-0500 Heart rate 49 /min Ana Bynum [facility] 01-20-2022 10:48-0500 SaO2% (BldA) [Mass fraction] 99 % Ana Bynum [facility] 01-20-2022 10:48-0500 Systolic blood pressure 122 mm[Hg] Ana Bynum [facility] 12-23-2021 12:51-0400 Blood Pressure Location Ana Bynum [facility] 12-23-2021 12:51-0400 Body temperature 97.88 [degF] Ana Bynum [facility] 12-23-2021 12:51-0400 Diastolic blood pressure 62 mm[Hg] Ana Bynum [facility] 12-23-2021 12:51-0400 Heart rate 78 /min Ana Bynum [facility] 12-23-2021 12:51-0400 SaO2% (BldA) [Mass fraction] 97 % Ana Bynum [facility] 12-23-2021 12:51-0400 Systolic blood pressure 124 mm[Hg] Ana Bynum [facility] 10-21-2021 23:45-0400 Diastolic blood pressure 51 mm[Hg] Kaylinn Dokken [facility] 10-21-2021 23:45-0400 Heart rate 68 /min Kaylinn Dokken [facility] 10-21-2021 23:45-0400 Respiratory rate 16 /min Kaylinn Dokken [facility] 10-21-2021 23:45-0400 SaO2% (BldA) [Mass fraction] 100 % Kaylinn Dokken [facility] 10-21-2021 23:45-0400 Systolic blood pressure 106 mm[Hg] Kaylinn Dokken [facility] 10-21-2021 21:56-0400 Body temperature 98.42 [degF] Kaylinn Dokken [facility] 10-21-2021 21:56-0400 Diastolic blood pressure 66 mm[Hg] Kaylinn Dokken [facility] 10-21-2021 21:56-0400 Heart rate 72 /min Kaylinn Dokken [facility] 10-21-2021 21:56-0400 Respiratory rate 16 /min Kaylinn Dokken [facility] 10-21-2021 21:56-0400 SaO2% (BldA) [Mass fraction] 100 % Kaylinn Dokken [facility] 10-21-2021 21:56-0400 Systolic blood pressure 109 mm[Hg] Kaylinn Dokken [facility] 10-12-2021 12:31-0400 Body temperature 98.42 [degF] Vania SIEGEL [facility] 10-12-2021 12:31-0400 Diastolic blood pressure 70 mm[Hg] Vania ROBBIN [facility] 10-12-2021 12:31-0400 Heart rate 80 /min Vania ROBBIN [facility] 10-12-2021 12:31-0400 Respiratory rate 18 /min Vania ROBBIN [facility] 10-12-2021 12:31-0400 SaO2% (BldA) [Mass fraction] 98 % Vania ROBBIN [facility] 10-12-2021 12:31-0400 Systolic blood pressure 107 mm[Hg] Vania ROBBIN [facility] 09-22-2021 18:14-0400 Body temperature 98.42 [degF] Richard Ralph [facility] 09-22-2021 18:14-0400 Diastolic blood pressure 71 mm[Hg] Richard Rosas [facility] 09-22-2021 18:14-0400 Heart rate 95 /min Richard Ralph [facility] 09-22-2021 18:14-0400 Respiratory rate 16 /min Richard Rosas [facility] 09-22-2021 18:14-0400 SaO2% (BldA) [Mass fraction] 98 % Richard Rosas [facility] 09-22-2021 18:14-0400 Systolic blood pressure 108 mm[Hg] Richard Rosas [facility] 09-25-2019 18:41-0400 Respiratory Rate 14 /min [facility] 09-25-2019 16:50-0400 Body Temperature 98.4 [degF] [facility] 09-25-2019 16:50-0400 BP Diastolic 89 mm[Hg] [facility] 09-25-2019 16:50-0400 BP Systolic 136 mm[Hg] [facility] 09-25-2019 16:50-0400 Pulse (Heart Rate) 90 /min [facility] 09-25-2019 16:50-0400 Pulse Oximetry 98 % [facility] 09-23-2019 17:23-0400 BMI (Body Mass Index) 33.64 kg/m2 [facility] 09-23-2019 17:23-0400 Body weight 88.[address] [facility] 09-23-2019 17:23-0400 Height 162.[address] [facility] 08-09-2019 12:58-0400 BMI (Body Mass Index) 31.41 kg/m2 [facility] 08-09-2019 12:58-0400 Body Temperature 97.3 [degF] [facility] 08-09-2019 12:58-0400 Body weight 83.01 kg [facility] 08-09-2019 12:58-0400 Height 162.6 cm [facility] 08-09-2019 12:58-0400 Respiratory Rate 16 /min [facility] 09-28-2018 23:39-0400 Body Temperature 98.1 [degF] [place] 09-28-2018 23:39-0400 Body weight 68.04 kg [facility] [place] 09-28-2018 23:39-0400 BP Diastolic 70 mm[Hg] [facility] [place] 09-28-2018 23:39-0400 BP Systolic 114 mm[Hg] [facility] [place] 09-28-2018 23:39-0400 Pulse (Heart Rate) 73 /min [place], [place] 09-28-2018 23:39-0400 Pulse Oximetry 98 % [facility], [place] 09-28-2018 23:39-0400 Respiratory Rate 17 /min [facility] [place], [place] 10-26-2017 16:10-0400 BMI (Body Mass Index) 26.4 kg/m2 [facility] 10-26-2017 16:10-0400 Body Temperature 98.29 [degF] [facility] 10-26-2017 16:10-0400 BP Diastolic 69 mm[Hg] [facility] 10-26-2017 16:10-0400 BP Systolic 110 mm[Hg] [facility] 10-26-2017 16:10-0400 Height 162.6 cm [facility] 10-26-2017 16:10-0400 Pulse (Heart Rate) 92 /min [facility] 10-26-2017 16:10-0400 Pulse Oximetry 97 % [facility] 10-26-2017 16:10-0400 Respiratory Rate 24 /min [facility] 10-26-2017 16:10-0400 Weight 69.76 kg [facility] Encounters Encounter Date Encounter Type Care Provider Facility Start: 04-05-2024 End: 04-05-[address] [facility] Start: 03-11-2024 End: 03-11-2024 ambulatory [facility] Start: 03-08-2024 End: 03-08-2024 ambulatory [facility] Start: 02-08-2024 End: 02-08-[address] [facility] Start: 02-08-2024 Encounter for gynecological examination (general) (routine) without abnormal findings [facility] Start: 02-08-2024 End: 02-08-[address] [facility] Start: 02-08-2024 Encounter for gynecological examination (general) (routine) without abnormal findings [facility] Start: 01-24-2024 End: 01-24-2024 ambulatory [facility] Start: 01-09-2024 End: 01-09-20[facility] Start: 11-21-2023 End: 11-21-2023 ambulatory RUBÉN Alanis Work Phone: [facility] Work Phone: Start: 11-21-2023 End: 11-21-2023 Patient encounter procedure RUBÉN Alanis Work Phone: [facility] Work Phone: Start: 2023 End: 2023 Emergency department patient visit ARA MONCADA [facility] Start: 11-19-2023 End: 11-19-2023 Emergency department patient visit RUBÉN Alanis Work Phone: [facility]-Emergency [facility] Work Phone: Start: 06-29-2023 End: 06-29-2023 Emergency department patient visit MAYCOL QUINTANILLA [facility] Start: 06-29-2023 End: 06-29-2023 Emergency department patient visit Maycol Quintanilla MD Work Phone: [facility] Medicine Start: 07-19-2022 End: 07-20-2022 Emergency department patient visit [facility] Start: 03-24-2022 End: 03-25-2022 ambulatory Ana Bynum Facility:[facility] Start: 03-24-2022 End: 03-24-2022 Patient encounter procedure Ana Bynum [facility] Start: 01-20-2022 End: 01-21-2022 ambulatory Ana Bynum Facility:[facility] Start: 01-20-2022 End: 01-20-2022 Patient encounter procedure Ana Bynum [facility] Start: 12-29-2021 End: 12-30-2021 ambulatory Ana Hdz Bynum Facility[facility] Start: 12-23-2021 End: 12-24-2021 ambulatory Ana Andreina Bynum Facility:[facility] Start: 12-23-2021 End: 12-23-2021 Patient encounter procedure Ana R Bynum [facility] Start: 12-22-2021 ambulatory Jannie Mendez Facility :[facility] Start: 10-24-2021 End: 10-24-2021 Emergency department patient visit Richard Rosas Facility:[facility] Start: 10-21-2021 End: 10-22-2021 Emergency department patient visit Jannie Mendez Facility:[facility] Start: 10-21-2021 End: 10-21-2021 Emergency department patient visit Jannie Mendez [facility] Start: 10-12-2021 End: 10-12-2021 Emergency department patient visit Sheldon Canas Facility:[facility] Start: 10-12-2021 End: 10-12-2021 Emergency department patient visit Vania SIEGEL [facility] Start: 09-22-2021 End: 09-22-2021 Emergency department patient visit Richard Rosas Facility:[facility] Start: 09-22-2021 End: 09-22-2021 Emergency department patient visit Richard Rosas [facility] Start: 09-23-2019 End: 09-25-2019 Evaluation and management of inpatient [facility] Start: 09-23-2019 End: 09-25-2019 Evaluation and management of inpatient [facility] Work Phone: [facility] Obstetrics Comment on above: 40 weeks gestation o f Start: 09-21-2019 End: 09-21-2019 Patient encounter procedure ДМИТРИЙ REYNAGA DICKSON [facility] Start: 08-12-2019 End: 08-16-2019 Patient encounter procedure PHYSICIAN CHEY [facility] Start: 08-09-2019 End: 08-09-2019 Patient encounter procedure GUANAKO STEPHENS [facility] Start: 08-09-2019 End: 08-09-2019 Subsequent hospital visit by physician Guanako Stephens Work Phone: [facility] Labor & Delivery Start: 06-19-2019 End: 06-23-2019 Patient encounter procedure PHYSICIAN CHEY [facility] Start: 05-03-2019 End: 05-04-2019 Patient encounter procedure JOEY COLEMAN [facility] Start: 05-03-2019 End: 05-03-2019 Subsequent hospital visit by physician KEVIN [facility] Comment on above: Acute cystitis with hematuria Start: 02-04-2019 End: 02-08-2019 Patient encounter procedure PHYSICIAN CHEY [facility] Start: 12-12-2018 End: 12-13-2018 Patient encounter procedure LASHELL WATKINS [facility] Start: 12-12-2018 End: 12-12-2018 Subsequent hospital visit by physician KEVIN [facility] Comment on above: Positive t est Start: 09-29-2018 End: 09-29-2018 Emergency department patient visit DANILO Shepherd [facility] Start: 09-28-2018 End: 09-29-2018 Emergency department patient visit Danilo Shepherd Marie Work Phone: [facility] ED Comment on above: Dysuria (Primary Dx) Start: 02-04-2018 End: 02-04-2018 Emergency department patient visit Eric Davis Facility:[facility] Start: 01-21-2018 End: 01-21-2018 Emergency department patient visit Art Valdez Facility:[facility] Start: 01-05-2018 End: 01-05-2018 Emergency department patient visit Kirk Tsai Facility:[facility] Start: 12-09-2017 End: 12-09-2017 Emergency department patient visit Ginger Smart Facility:[facility] Start: 10-26-2017 End: 10-26-2017 Patient encounter PHYSICIAN CHEY [facility] Start: 10-26-2017 End: 10-26-2017 Office outpatient new 30 minutes Maxine Bird Work Phone: [facility] Comment on above: Viral upper respirat ory tract infection (Primary Dx) Start: 10-08-2017 End: 10-09-2017 Emergency department patient visit Juli Chung Facility:[facility] Start: 10-08-2017 End: 10-08-2017 Emergency department patient visit Brent Mcneill Facility:[facility] Start: 09-08-2017 End: 09-08-2017 Emergency department patient visit Frantzselina Morrisqvi Facility:[facility] Start: 08-04-2017 End: 08-04-2017 Emergency department patient visit Benjamín Peterson Facility:[facility] Start: 06-05-2017 End: 06-06-2017 Emergency department patient visit Eric Davis Facility:[facility] Start: 04-17-2017 End: 04-18-2017 Emergency department patient visit Selinaberto Cora Madsen Facility:[facility] Start: 04-05-2017 End: 04-05-2017 Emergency department patient visit Eric Davis Facility:[facility] Start: 03-31-2017 End: 03-31-2017 Emergency department patient visit Kirk Tsai Facility:[facility] Start: 02-18-2017 End: 02-18-2017 Emergency department patient visit Kirk Tsai Facility:[facility] Start: 02-17-2017 End: 02-17-2017 Ambulatory Kirk Kapoorano Work Phone: [facility] Procedures Date Procedure Procedure Detail Performing Clinician Start: 11-19-2023 Plain X-ray of left hand TECHNICAL SUPPORT ASSOCIATE Harvinder Aguilarmond Work Phone: Start: 09-25-2019 Hemoglobin [Mass/vol ume] in Blood Дмитрий Carolyn Robles Work Phone: Start: 09-23-2019 Blood type and Indir ect antibody screen panel - Blood Kirk Garcia Work Phone: Start: 09-23-2019 Complete blood count (hemogram) panel - Blood by Automated count Kirk Garcia Work Phone: Start: 09-23-2019 SCAN OTHER ORDERS Provi musa Not In System Start: 08-09-2019 Eval c/v amniotic fl uid protein qual ea specimen Guanako Stephens Work Phone: Start: 08-09-2019 Urinalysis Guanako Sulema kaufman Kat Work Phone: Start: 05-03-2019 Culture bacterial quanttative colony count urine DANILO POLLOCK Start: 02-04-2019 Microscopic observat ion [Identifier] in Cervix by Cyto stain Guanako Stephens Start: 12-12-2018 Gonadotropin chorion ic quantitative DANILO POLLOCK Start: 12-12-2018 TYPE AND SCREEN DANILO POLLOCK Start: 12-12-2018 Antibody screen Start: 12-12-2018 Blood typing serologic abo Lashell E Pool Work Phone: Start: 12-12-2018 Gonadotropin chorion ic quantitative Lashell E Pool Work Phone: Start: 09-29-2018 Culture bacterial quanttative colony count urine DANILO POLLOCK Start: 09-29-2018 Urinalysis microscop ic only DANILO POLLOCK Start: 09-29-2018 Urine test visual color cmprsn meths DANILO POLLOCK Start: 09-29-2018 Urnls dip stick/tabl et rgnt auto w/o microscopy DANILO POLLOCK Start: 09-29-2018 Urinalysis microscop ic only Danilo Pollock Work Phone: Start: 09-29-2018 Urine test visual color cmprsn meths Danilo Shepherd Marie Work Phone: Start: 09-29-2018 Urnls dip stick/tabl et rgnt auto w/o microscopy Danilo Pollock Work Phone: Plan of Treatment Date Care Activity Detail Author Start: 2046 Shingles Vaccine (1 of 2) Shingles Vaccine (1 of 2) [place], [place] Start: 07-18-2029 Tetanus vaccination Tetanus: Every 1 0yrs [facility] Start: 10-22-2023 Influenza vaccination INFLUENZ A VACCINE (Season Ended) [facility] Start: 10-21-2022 COVID-19 VACCINE ( season) COVID-19 VACCINE ( season) [facility] Start: 02-04-2022 Screening for malign ant neoplasm of cervix Pap Smear [facility] Start: 08-11-2020 Screening for Chlamy eusebio trachomatis Chlamydia Screening [facility] Start: 02-05-2020 Screening for Chlamy eusebio trachomatis Chlamydia Screening [facility] Start: 10-22-2019 Influenza vaccinatio n given [facility] Start: 08-16-2019 End: 08-16-2019 Routine 08/16/2019 Routine Obstetrics and Gynecology Kirk Garcia MD [address] [place] [id number] [phone] [facility] Start: 08-12-2019 End: 08-12-2019 Routine 08/12/2019 Routine Obstetrics and Gynecology Guanako Stephens MD [address] [place] [id number] [facility] - [facility] Start: 10-21-2018 Influenza vaccination Flu vaccine (# 1) [place], [place] Start: 2017 Cervical cancer screen Cervical canc er screen [place], [place] Start: 2017 Screening for malign ant neoplasm of cervix CERVICAL CANCER SCREENING DISCUSSION [facility] Start: 10-30-2017 End: 10-30-2017 Ambulatory 10/30/2017 Office Visit Obstetrics and Gynecology Kirk Garcia MD [address] [place] [phone] [facility] [facility] Start: 10-21-2017 Influenza vaccination SEQUENTI AL INFLUENZA VACCINE (#1) [facility] Start: 11-21-2015 DTaP/Tdap/Td vaccine (1 - Tdap) DTaP/Tdap/Td vaccine (1 - Tdap) [place] Start: 11-21-2015 Hepatitis B vaccination HEP B VACCINE (1 of 3 - 19+ 3-dose series) [facility] Start: 11-21-2015 Third diphtheria, tetanus and acellular pertussis (DTaP) vaccination TDAP (ADULT) [facility] Start: 2012 Chlamydia screen Chlamydia screen [place], [place] Start: 2012 Screening for Chlamy eusebio trachomatis CHLAMYDIA SCREEN [facility] Start: 11-21-2011 HIV screen HIV screen [place], [place] Start: 11-21-2011 HIV screening HIV SCREENING DISCUSSION [facility] Start: 11-21-2011 HPV vaccine (1 - Fem ben 3-dose series) HPV vaccine (1 - Female 3-dose series) [place] Start: 11-21-2011 Vaccination for dali n papillomavirus HPV VACCINE ADOL (1 - 3-dose series) [facility] Start: 2009 Varicella Vaccine (1 of 2 - 13+ 2-dose series) Varicella Vaccine (1 of 2 - 13+ 2-dose series) [place] Start: 11-21-2007 HPV vaccine (1 - 2-d ose series) HPV vaccine (1 - 2-dose series) [place] Start: 11-21-2007 Vaccination for dali n papillomavirus HPV VACCINES (1 of 3 - Female 3-dose series) [facility] Start: 2002 Pneumococcal 0-64 ye ars Vaccine (1 of 1 - PPSV23) Pneumococcal 0-64 years Vaccine (1 of 1 - PPSV23) [place] Start: 11-21-1999 History and physical examination, annual for health maintenance Wellness Visit [facility] Start: 1997 Varicella vaccine (1 of 2 - 2-dose childhood series) Varicella vaccine (1 of 2 - 2-dose childhood series) [place] Start: 1996 Hepatitis C screening HEPATITI S C VIRUS SCREENING [facility] Start: 1996 Screening for Chlamy eusebio trachomatis GONORRHEA SCREEN [facility] Start: 1996 Tetanus vaccination [facility] End: 09-29-2018 Bacteria identified Cx Nom (U) Urine Culture Microbiology Routine Once for 1 Occurrences starting 09/29/2018 until 09/29/2018 [place] Comment on above: Once for 1 Occurrenc es starting 09/29/2018 until 09/29/2018 Bacteria identified Cx Nom (U) [place] End: 05-03-2019 Culture, Urine Culture, Urine Microbiology Routine Acute cystitis with hematuria 1 Occurrences starting 05/03/2019 until 05/03/2019 [place] Comment on above: 1 Occurrences starti ng 05/03/2019 until 05/03/2019 Patient Education Concussion, Adult (DC) [facility] Work Phone: Patient referral [facility] Work Phone: XR Unspecified body region Views [facility] Immunizations Immunization Date Immunization Notes Care Provider Callie tomlin 09-24-2019 diphtheria, tetanus toxoids and acellular pertussis vaccine, unspecified formulation [facility] 09-24-2019 measles, mumps and rubella virus vaccine [facility] 09-24-2019 varicella zoster immune globulin [facility] 07-19-2019 tetanus toxoid, reduced diphtheria toxoid, and acellular pertussis vaccine, adsorbed Guanako Kat [facility] Comment on above: Result Comment: 2021: VIS DATE: 04/15/2014 06-12-2012 hepatitis A vaccine, adult dosage Ana Bynum [facility] 10-08-2010 hepatitis A vaccine, adult dosage Ana Bynum [facility] 10-08-2010 meningococcal ACWY vaccine, unspecified formulation Ana Bynum [facility] 10-08-2010 tetanus toxoid, reduced diphtheria toxoid, and acellular pertussis vaccine, adsorbed Ana Bynum [facility] 10-08-2010 varicella virus vaccine Ana Bynum [facility] 12-07-2000 DTaP, unspecified formulation Ana Bynum [facility] 12-07-2000 measles, mumps and rubella virus vaccine Ana Bynum [facility] 12-07-2000 poliovirus vaccine, unspecified formulation Anatulio Bynum [facility] 09-23-1999 varicella virus vaccine Ana Bynum [facility] 03-10-1999 DTaP, unspecified formulation Ana Bynum [facility] 03-10-1999 haemophilus influenz ae type b vaccine, PRP-OMP conjugate Ana Bynum [facility] 03-10-1999 measles, mumps and rubella virus vaccine Ana Bynum [facility] 03-10-1999 poliovirus vaccine, unspecified formulation Ana Bynum [facility] 08-06-1997 DTaP, unspecified formulation Ana Bynum [facility] 08-06-1997 haemophilus influenz ae type b vaccine, PRP-OMP conjugate Ana [facility] 07-27-1997 DTaP, unspecified formulation Ana Bynum [facility] 06-04-1997 DTaP, unspecified formulation Ana Bynum [facility] 06-04-1997 haemophilus influenz ae type b vaccine, PRP-OMP conjugate Ana [facility] 06-04-1997 hepatitis B vaccine, adult dosage Ana Bynum [facility] 06-04-1997 poliovirus vaccine, unspecified formulation Ana Bynum [facility] 04-09-1997 DTaP, unspecified formulation Ana Bynum [facility] 04-09-1997 haemophilus influenz ae type b vaccine, PRP-OMP conjugate Ana [facility] 04-09-1997 hepatitis B vaccine, adult dosage Ana Bynum [facility] 04-09-1997 poliovirus vaccine, unspecified formulation Ana Bynum [facility] 1996 hepatitis B vaccine, pediatric or pediatric/adolescent dosage Ana Bynum [facility] NEGATED: Highlighted row has not occurred!12-23-2021 influenza virus vaccine, unspecified formulation Ana Bynum [facility] Payers Date Payer Category Payer Self-pay [address] [facility] MEDICAID FORMERLY [facility] PLAN [facility] MEDICAID COMMUNITY PLAN [id number] 2023-Present [address] [place] [address] [id number] 2023 Self-pay [id number] 2018 Private Health Insurance xxx [id number] 2018 Private Health Insurance [id number] 2017 Medicaid [id number] 1996 Unknown [id number] 2..840.1.808429.3.579.2. 174 1996 Unknown [id number] 2.840.1.760080.3.579.2. 174 1996 Unknown [id number] 2.16.840.1.973684.3.579.2. 174 1996 Unknown [id number] 2.16.840.1.216677.3.579.2. 900 1996 Unknown [id number] 2.16.840.1.723369.3.579.2. 900 1996 Unknown [id number] 2.16.840.1.083002.3.579.2. 900 1996 Unknown [id number] 2.16.840.1.157214.3.579.2. 903 1996 Unknown [id number] 2.16.840.1.499714.3.579.2. 903 1996 Unknown [id number] 2.16.840.1.725108.3.579.2. 727 1996 Unknown [id number] 2.16.840.1.788451.3.579.2. 727 1996 Unknown [id number] 2.16.840.1.873615.3.579.2. 727 1996 Unknown [id number] 2.16.840.1.169952.3.579.2. 727 1996 Unknown [id number] 2.16.840.1.840092.3.579.2. 727 1996 Unknown [id number] 2.16.840.1.450196.3.579.2. 727 1996 Unknown [id number] 2.16.840.1.364522.3.579.2. 727 1996 Unknown [id number] 2.16.840.1.424167.3.579.2. 727 1996 Unknown [id number] 2.16.840.1.264001.3.579.2. 727 1996 Unknown [id number] 2.16.840.1.824110.3.579.2. 201 1996 Unknown [id number] 2.16.840.1.468233.3.579.2. 983 1996 Unknown [id number] 2.16.840.1.395581.3.579.2. 1286 1996 Unknown [id number] 2.16.840.1.508851.3.579.2. 1286 1996 Unknown [id number] 2.16.840.1.509293.3.579.2. 1286 1996 Unknown [id number] 2.16.840.1.844876.3.579.2. 1286 1996 Unknown [id number] 2.16.840.1.019065.3.579.2. 1286 1996 Unknown [id number] 2.16.840.1.522040.3.579.2. 1286 1996 Unknown [id number] 2.16.840.1.259617.3.579.2. 1286 1996 Unknown [id number] 2.16.840.1.265222.3.579.2. 1286 Self-pay [id number] Unknown [id number] 2.16.840.1.492154.3.579.2. 531 Social History Date Type Detail Facility Start: 02-18-2017 Tobacco smoking stat [facility] Unknown if ever smoked [facility] Work Phone: Start: 1996 Sex Assigned At Not on file [facility] Work Phone: Start: 10-26-2017 End: 08-09-2019 Tobacco smoking status NHIS Current every day smoker [facility] History of tobacco use Cigarette Smoker [facility] Start: 10-26-2017 End: 09-28-2018 Cigarettes smoked current (pack per day) - Reported [facility] Start: 09-28-2018 Tobacco smoking stat [facility] Current some day [facility] Start: 09-28-2018 Alcohol intake Never [facility] [place] Start: 09-28-2018 History CTOH Alcohol Frequency 1 [facility] Start: 09-28-2018 Alcohol intake Lifetime non-d lu (finding) [facility] Start: 08-09-2019 End: 09-24-2019 Alcohol intake Current non-drinker of alcohol (finding) [facility] Start: 02-04-2019 Tobacco Comment 3-4 a day [facility] Exposure to SARS-CoV -2 (event) Not sure [facility] Start: 12-26-2018 [facility] Start: 10-15-2020 Tobacco smoking status Never [facility] Start: 10-12-2021 End: 03-24-2022 Tobacco smoking status Heavy tobacco smoker (finding) [facility] Start: 06-29-2023 Tobacco smoking stat us NHIS Never smoked tobacco [facility] Start: 06-29-2023 Tobacco use and exposure Smokeless tobacco non-user [facility] Start: 11-19-2023 End: 11-21-2023 Tobacco smoking status NHIS Smoker (finding) [facility] Start: 1995 Sex Assigned At Female F [facility] Functional Status Date Assessment Result Facility 03-24-2022 Functional Status N/A [facility] 01-20-2022 Functional Status N/A [facility] 12-23-2021 Functional Status N/A [facility] 10-21-2021 Functional Status N/A [facility] 10-12-2021 Functional Status N/A [facility] 09-22-2021 Functional Status N/A [facility] Clinical Notes 09-22-2021 to 06-29-2023 Discharge InstructionsAttachmentsMaycol Quintanilla MD - 06/29/2023 1:42 PM EDTDavivienne Quintanilla MD - 06/29/2023 1:42 PM EDTRadiology Note Date & Type Note Facility 06-29-2023 Hospital Discharg e instructions Maycol Quintanilla MD - 06/29/2023 1:44 PM EDT Tylenol for moderate pain. See a dentist as soon as possible The following attachments cannot be sent through Care Everywhere.Tooth: Abscessed (Ukrainian)documented in this encounter [facility] 06-29-2023 Emergency department Note Emergency Department Report [facility] EM[facility] Service Date:.06/29/23 PCP: No primary care provider on file. Chief Complaint: Chief Complaint Patient presents with Dental Pain Patient reports dental pain x2 days on bottom right jaw. Patient states she has not had her wisdom teeth removed. Patient states she has not contacted a dentist. HPI Jeni Jane is a 27 y.o. female presents to the ED today due to dental pain. Her lower wisdom tooth, right side is painful and has been fractured long ago. It is bothering her and she is recently . No vaginal bleeding. Review of Systems: Review of Systems Constitutional symptoms: no Fatigue, no fever, no chills. Skin symptoms: Negative except as documented in HPI. ENMT symptoms: Negative except as documented in HPI. Dental pain as above Respiratory symptoms: Negative except as documented in HPI. Cardiovascular symptoms: Negative except as documented in HPI. Gastrointestinal symptoms: Negative except for documented as above in the HPI Genitourinary symptoms: Negative except as documented in HPI. Musculoskeletal symptoms: Negative except as documented in HPI. Neurologic symptoms: Negative except as documented in HPI. Remainder of 10 systems, all negative except for mentioned above Past Medical History: No past medical history on file. Past Surgical History: No past surgical history on file. Allergies: Allergies Allergen Reactions Penicillins Medications: Patient's Medications New Prescriptions AZITHROMYCIN 250 MG TABLET Take 500 mg X1 then 250 mg PO Once Daily X 4 days METHYLPREDNISOLONE 4 MG TAB THERAPY PACK TABLET Take 6 tablets by mouth on day 1, 5 tabs on day 2, 4 tabs on day 3, 3 tabs on day 4, 2 tabs on day 5, 1 tab on day 6, then stop. Previous Medications ARIPIPRAZOLE 10 MG TABLET Take 1 tablet by mouth daily. CLINDAMYCIN 150 MG CAPSULE TAKE 3 CAPSULES BY MOUTH IN THE MORNING, AT NOON, AND IN THE EVENING FOR 7 DAYS ESCITALOPRAM 5 MG TABLET Take 1 tablet by mouth daily. HYDROXYZINE PAMOATE 25 MG CAPSULE TAKE 1 TO 2 CAPSULES BY MOUTH THREE TIMES DAILY NEEDED DIRECTED FOR SLEEP OR ANXIETY FOR 30 DAYS LURASIDONE HCL 20 MG TABLET TAKE 1 TABLET BY MOUTH ONCE DAILY IN THE EVENING WITH FOOD FOR 90 DAYS ORALLY ONCE A DAY 30 DAY(S) PAROXETINE 10 MG TABLET Take 1 tablet by mouth daily every morning. TRAZODONE 50 MG TABLET TAKE 1 TO 2 TABLETS BY MOUTH ONCE DAILY AT BEDTIME NEEDED Modified Medications No medications on file Discontinued Medications No medications on file Family History: History reviewed. No pertinent family history. Social History: Social History Socioeconomic History Marital status: Spouse name: Not on file Number of children: Not on file Years of education: Not on file Highest education level: Not on file Occupational History Not on file Tobacco Use Smoking status: Never Smokeless tobacco: Never Vaping Use Vaping status: Every Day Substances: Nicotine Substance and Sexual Activity Alcohol use: Not on file Drug use: Not on file Sexual activity: Not on file Other Topics Concern Not on file Social History Narrative Not on file Social Determinants of Health Financial Resource Strain: Not on file Food Insecurity: Not on file Transportation Needs: Not on file Physical Activity: Not on file Stress: Not on file Social Connections: Not on file Intimate Partner Violence: Not on file Housing Stability: Not on file Physical Exam: Physical Exam CONST: -Well-developed well-nourished ; -In no acute distress. -Vitals reviewed. EYES: -EOM intact, BENEDICT: -Sclera normal and conjunctiva: clear bilaterally. ENT: - Normal pharynx pink and moist. There is a very carious wisdom tooth, posterior right, which has been fractured and I can see the root. There was mild associated swelling NECK: -Supple (fhzy-ze-jgoru). CARD: -Rate and rhythm: Regular -Murmurs: No RESP: -Respiratory effort and chest excursion with respirations: Normal -Breath sounds equal bilaterally: Clear -Wheezes: No -Rales: No BACK: -Flank pain: No -Pain on palpation: No ABD: -Distended: No -Bruits: No -Bowel sounds: Normal. -Deep palpation: Non-tender -Organomegaly palpable: No -Abnormal masses: No EXT: Gross appearance and use of all four extremities: Normal SKIN: -Good turgor warm and dry. -Apparent lesions or rashes: No NEURO: -Patient: alert -Oriented to: person, place and time. -Appearance and judgment: appropriate. -Cranial Nerves: Normal. -Speech: Normal Vital Signs During ED Visit Patient Vitals for the past 24 hrs: BP Temp Temp src Pulse Resp SpO2 06/29/23 1335 125/62 98.4 F (36.9 C) Oral 50 17 100 % Orders/Results: Orders Placed This Encounter predniSONE (DELTASONE) tablet 20 mg Azithromycin (ZITHROMAX) tablet 500 mg methylPREDNIsolone 4 MG Tab Therapy Pack tablet Azithromycin 250 MG tablet No results found for this or any previous visit. Radiographic Imaging No orders to display Procedures: Procedures Moderate Sedation Procedure: No ED Summary/MDM Patient is kasper allergic and is . We will adjust the antibiotics accordingly. Steroids will be employed in place him Motrin. Patient advised to see a dentist as soon as possible Clinical Impression: 1. Dental abscess No follow-ups on file. New Prescriptions AZITHROMYCIN 250 MG TABLET Take 500 mg X1 then 250 mg PO Once Daily X 4 days METHYLPREDNISOLONE 4 MG TAB THERAPY PACK TABLET Take 6 tablets by mouth on day 1, 5 tabs on day 2, 4 tabs on day 3, 3 tabs on day 4, 2 tabs on day 5, 1 tab on day 6, then stop. Discontinued Medications No medications on file An After Visit Summary was printed and given to the patient with above information. . . Maycol Quintanilla MD 06/29/23 1344 documented in this encounter [facility] 06-29-2023 Physician Emergency department Note Emergency Department Report [facility] Service Date:.06/29/23 PCP: No primary care provider on file. Chief Complaint: Chief Complaint Patient presents with Dental Pain Patient reports dental pain x2 days on bottom right jaw. Patient states she has not had her wisdom teeth removed. Patient states she has not contacted a dentist. HPI Jeni Jane is a 27 y.o. female presents to the ED today due to dental pain. Her lower wisdom tooth, right side is painful and has been fractured long ago. It is bothering her and she is recently . No vaginal bleeding. Review of Systems: Review of Systems Constitutional symptoms: no Fatigue, no fever, no chills. Skin symptoms: Negative except as documented in HPI. ENMT symptoms: Negative except as documented in HPI. Dental pain as above Respiratory symptoms: Negative except as documented in HPI. Cardiovascular symptoms: Negative except as documented in HPI. Gastrointestinal symptoms: Negative except for documented as above in the HPI Genitourinary symptoms: Negative except as documented in HPI. Musculoskeletal symptoms: Negative except as documented in HPI. Neurologic symptoms: Negative except as documented in HPI. Remainder of 10 systems, all negative except for mentioned above Past Medical History: No past medical history on file. Past Surgical History: No past surgical history on file. Allergies: Allergies Allergen Reactions Penicillins Medications: Patient's Medications New Prescriptions AZITHROMYCIN 250 MG TABLET Take 500 mg X1 then 250 mg PO Once Daily X 4 days METHYLPREDNISOLONE 4 MG TAB THERAPY PACK TABLET Take 6 tablets by mouth on day 1, 5 tabs on day 2, 4 tabs on day 3, 3 tabs on day 4, 2 tabs on day 5, 1 tab on day 6, then stop. Previous Medications ARIPIPRAZOLE 10 MG TABLET Take 1 tablet by mouth daily. CLINDAMYCIN 150 MG CAPSULE TAKE 3 CAPSULES BY MOUTH IN THE MORNING, AT NOON, AND IN THE EVENING FOR 7 DAYS ESCITALOPRAM 5 MG TABLET Take 1 tablet by mouth daily. HYDROXYZINE PAMOATE 25 MG CAPSULE TAKE 1 TO 2 CAPSULES BY MOUTH THREE TIMES DAILY NEEDED DIRECTED FOR SLEEP OR ANXIETY FOR 30 DAYS LURASIDONE HCL 20 MG TABLET TAKE 1 TABLET BY MOUTH ONCE DAILY IN THE EVENING WITH FOOD FOR 90 DAYS ORALLY ONCE A DAY 30 DAY(S) PAROXETINE 10 MG TABLET Take 1 tablet by mouth daily every morning. TRAZODONE 50 MG TABLET TAKE 1 TO 2 TABLETS BY MOUTH ONCE DAILY AT BEDTIME NEEDED Modified Medications No medications on file Discontinued Medications No medications on file Family History: History reviewed. No pertinent family history. Social History: Social History Socioeconomic History Marital status: Spouse name: Not on file Number of children: Not on file Years of education: Not on file Highest education level: Not on file Occupational History Not on file Tobacco Use Smoking status: Never Smokeless tobacco: Never Vaping Use Vaping status: Every Day Substances: Nicotine Substance and Sexual Activity Alcohol use: Not on file Drug use: Not on file Sexual activity: Not on file Other Topics Concern Not on file Social History Narrative Not on file Social Determinants of Health Financial Resource Strain: Not on file Food Insecurity: Not on file Transportation Needs: Not on file Physical Activity: Not on file Stress: Not on file Social Connections: Not on file Intimate Partner Violence: Not on file Housing Stability: Not on file Physical Exam: Physical Exam CONST: -Well-developed well-nourished ; -In no acute distress. -Vitals reviewed. EYES: -EOM intact, BENEDICT: -Sclera normal and conjunctiva: clear bilaterally. ENT: - Normal pharynx pink and moist. There is a very carious wisdom tooth, posterior right, which has been fractured and I can see the root. There was mild associated swelling NECK: -Supple (qsij-se-vgrnu). CARD: -Rate and rhythm: Regular -Murmurs: No RESP: -Respiratory effort and chest excursion with respirations: Normal -Breath sounds equal bilaterally: Clear -Wheezes: No -Rales: No BACK: -Flank pain: No -Pain on palpation: No ABD: -Distended: No -Bruits: No -Bowel sounds: Normal. -Deep palpation: Non-tender -Organomegaly palpable: No -Abnormal masses: No EXT: Gross appearance and use of all four extremities: Normal SKIN: -Good turgor warm and dry. -Apparent lesions or rashes: No NEURO: -Patient: alert -Oriented to: person, place and time. -Appearance and judgment: appropriate. -Cranial Nerves: Normal. -Speech: Normal Vital Signs During ED Visit Patient Vitals for the past 24 hrs: BP Temp Temp src Pulse Resp SpO2 06/29/23 1335 125/62 98.4 F (36.9 C) Oral 50 17 100 % Orders/Results: Orders Placed This Encounter predniSONE (DELTASONE) tablet 20 mg Azithromycin (ZITHROMAX) tablet 500 mg methylPREDNIsolone 4 MG Tab Therapy Pack tablet Azithromycin 250 MG tablet No results found for this or any previous visit. Radiographic Imaging No orders to display Procedures: Procedures Moderate Sedation Procedure: No ED Summary/MDM Patient is kasper allergic and is . We will adjust the antibiotics accordingly. Steroids will be employed in place him Motrin. Patient advised to see a dentist as soon as possible Clinical Impression: 1. Dental abscess No follow-ups on file. New Prescriptions AZITHROMYCIN 250 MG TABLET Take 500 mg X1 then 250 mg PO Once Daily X 4 days METHYLPREDNISOLONE 4 MG TAB THERAPY PACK TABLET Take 6 tablets by mouth on day 1, 5 tabs on day 2, 4 tabs on day 3, 3 tabs on day 4, 2 tabs on day 5, 1 tab on day 6, then stop. Discontinued Medications No medications on file An After Visit Summary was printed and given to the patient with above information. . . Maycol Quintanilla MD 06/29/23 1344 [facility] 03-24-2022 Hospital Discharg e instructions Patient Education 03/24/2022 12:08:16 Tobacco Use Disorder Tobacco Use Disorder Tobacco use disorder (TUD) occurs when a person craves, seeks, and uses tobacco, regardless of the consequences. This disorder can cause problems with mental and physical health. It can affect your ability to have healthy relationships, and it can keep you from meeting your responsibilities at work, home, or school. Tobacco may be: Smoked as a cigarette or cigar. Inhaled using e-cigarettes. Smoked in a pipe or hookah. Chewed as smokeless tobacco. Inhaled into the nostrils as snuff. Tobacco products contain a dangerous chemical called nicotine, which is very addictive. Nicotine triggers hormones that make the body feel stimulated and works on areas of the brain that make you feel good. These effects can make it hard for people to quit nicotine. Tobacco contains many other unsafe chemicals that can damage almost every organ in the body. Smoking tobacco also puts others in danger due to fire risk and possible health problems caused by breathing in secondhand smoke. What are the signs or symptoms? Symptoms of TUD may include: Being unable to slow down or stop your tobacco use. Spending an abnormal amount of time getting or using tobacco. Craving tobacco. Cravings may last for up to 6 months after quitting. Tobacco use that: ?Interferes with your work, school, or home life. ?Interferes with your personal and social relationships. ?Makes you give up activities that you once enjoyed or found important. Using tobacco even though you know that it is: ?Dangerous or bad for your health or someone else's health. ?Causing problems in your life. Needing more and more of the substance to get the same effect (developing tolerance). Experiencing unpleasant symptoms if you do not use the substance (withdrawal). Withdrawal symptoms may include: ?Depressed, anxious, or irritable mood. ?Difficulty concentrating. ?Increased appetite. ?Restlessness or trouble sleeping. Using the substance to avoid withdrawal. How is this diagnosed? This condition may be diagnosed based on: Your current and past tobacco use. Your health care provider may ask questions about how your tobacco use affects your life. A physical exam. You may be diagnosed with TUD if you have at least two symptoms within a 12-month period. How is this treated? This condition is treated by stopping tobacco use. Many people are unable to quit on their own and need help. Treatment may include: Nicotine replacement therapy (NRT). NRT provides nicotine without the other harmful chemicals in tobacco. NRT gradually lowers the dosage of nicotine in the body and reduces withdrawal symptoms. NRT is available as: ?Ywry-crd-pvdgghv gums, lozenges, and skin patches. ?Prescription mouth inhalers and nasal sprays. Medicine that acts on the brain to reduce cravings and withdrawal symptoms. A type of talk therapy that examines your triggers for tobacco use, how to avoid them, and how to cope with cravings (behavioral therapy). Hypnosis. This may help with withdrawal symptoms. Joining a support group for others coping with TUD. The best treatment for TUD is usually a combination of medicine, talk therapy, and support groups. Recovery can be a long process. Many people start using tobacco again after stopping (relapse). If you relapse, it does not mean that treatment will not work. Follow these instructions at home: Lifestyle Do not use any products that contain nicotine or tobacco, such as cigarettes and e-cigarettes. Avoid things that trigger tobacco use as much as you can. Triggers include people and situations that usually cause you to use tobacco. Avoid drinks that contain caffeine, including coffee. These may worsen some withdrawal symptoms. Find ways to manage stress. Wanting to smoke may cause stress, and stress can make you want to smoke. Relaxation techniques such as deep breathing, meditation, and yoga may help. Attend support groups as needed. These groups are an important part of long-term recovery for many people. General instructions Take uoxk-myf-wyraaaq and prescription medicines only as told by your health care provider. Check with your health care provider before taking any new prescription or icpo-nxz-fpxmqdm medicines. Decide on a friend, family member, or smoking quit-line (such as 8-885-RAYO-NOW in the [place] that you can call or text when you feel the urge to smoke or when you need help coping with cravings. Keep all follow-up visits as told by your health care provider and therapist. This is important. Contact a health care provider if: You are not able to take your medicines as prescribed. Your symptoms get worse, even with treatment. Summary Tobacco use disorder (TUD) occurs when a person craves, seeks, and uses tobacco regardless of the consequences. This condition may be diagnosed based on your current and past tobacco use and a physical exam. Many people are unable to quit on their own and need help. Recovery can be a long process. The most effective treatment for TUD is usually a combination of medicine, talk therapy, and support groups. This information is not intended to replace advice given to you by your health care provider. Make sure you discuss any questions you have with your health care provider. Document Released: 10/12/2004 Document Revised: 01/24/2018 Document Reviewed: 01/24/2018 [id number] Patient Education 2020 [employer]. 03/24/2022 12:08:13 BMI for Adults BMI for Adults Body mass index (BMI) is a number that is calculated from a person's weight and height. BMI may help to estimate how much of a person's weight is composed of fat. BMI can help identify those who may be at higher risk for certain medical problems. How is BMI used with adults? BMI is used as a screening tool to identify possible weight problems. It is used to check whether a person is obese, overweight, healthy weight, or underweight. How is BMI calculated? BMI measures your weight and compares it to your height. This can be done either in [place] ([place] or metric measurements. Note that charts are available to help you find your BMI quickly and easily without having to do these calculations yourself. To calculate your BMI in [place] ([place] measurements, your health care provider will: 1.Measure your weight in pounds (lb). 2.Multiply the number of pounds by 703. For example, for a person who weighs 180 lb, multiply that number by 703, which equals [phone]. 3.Measure your height in inches (in). Then multiply that number by itself to get a measurement called inches squared. For example, for a person who is 70 in tall, the inches squared measurement is 70 in x 70 in, which equals 4900 inches squared. 4.Divide the total from Step 2 (number of lb x 703) by the total from Step 3 (inches squared): 126,540 4900 = 25.8. This is your BMI. To calculate your BMI in metric measurements, your health care provider will: 1.Measure your weight in kilograms (kg). 2.Measure your height in meters (m). Then multiply that number by itself to get a measurement called meters squared. For example, for a person who is 1.75 m tall, the meters squared measurement is 1.75 m x 1.75 m, which is equal to 3.1 meters squared. 3.Divide the number of kilograms (your weight) by the meters squared number. In this example: 70 3.1 = 22.6. This is your BMI. How is BMI interpreted? To interpret your results, your health care provider will use BMI charts to identify whether you are underweight, normal weight, overweight, or obese. The following guidelines will be used: Underweight: BMI less than 18.5. Normal weight: BMI between 18.5 and 24.9. Overweight: BMI between 25 and 29.9. Obese: BMI of 30 and above. Please note: Weight includes both fat and muscle, so someone with a muscular build, such as an athlete, may have a BMI that is higher than 24.9. In cases like these, BMI is not an accurate measure of body fat. To determine if excess body fat is the cause of a BMI of 25 or higher, further assessments may need to be done by a health care provider. BMI is usually interpreted in the same way for men and women. Why is BMI a useful tool? BMI is useful in two ways: Identifying a weight problem that may be related to a medical condition, or that may increase the risk for medical problems. Promoting lifestyle and diet changes in order to reach a healthy weight. Summary Body mass index (BMI) is a number that is calculated from a person's weight and height. BMI may help to estimate how much of a person's weight is composed of fat. BMI can help identify those who may be at higher risk for certain medical problems. BMI can be measured using [place] measurements or metric measurements. To interpret your results, your health care provider will use BMI charts to identify whether you are underweight, normal weight, overweight, or obese. This information is not intended to replace advice given to you by your health care provider. Make sure you discuss any questions you have with your health care provider. Document Released: 10/18/2004 Document Revised: 01/19/2018 Document Reviewed: 12/20/2017 [id number] Patient Education 2020 [id number] 03/24/2022 12:08:11 Migraine Headache Migraine Headache A migraine headache is an intense, throbbing pain on one side or both sides of the head. Migraine headaches may also cause other symptoms, such as nausea, vomiting, and sensitivity to light and noise. A migraine headache can last from 4 hours to 3 days. Talk with your doctor about what things may bring on (trigger) your migraine headaches. What are the causes? The exact cause of this condition is not known. However, a migraine may be caused when nerves in the brain become irritated and release chemicals that cause inflammation of blood vessels. This inflammation causes pain. This condition may be triggered or caused by: Drinking alcohol. Smoking. Taking medicines, such as: ?Medicine used to treat chest pain (nitroglycerin). ? control pills. ?Estrogen. ?Certain blood pressure medicines. Eating or drinking products that contain nitrates, glutamate, aspartame, or tyramine. Aged cheeses, chocolate, or caffeine may also be triggers. Doing physical activity. Other things that may trigger a migraine headache include: Menstruation. . Hunger. Stress. Lack of sleep or too much sleep. Weather changes. Fatigue. What increases the risk? The following factors may make you more likely to experience migraine headaches: Being a certain age. This condition is more common in people who are 25 55 years old. Being female. Having a family history of migraine headaches. Being . Having a mental health condition, such as depression or anxiety. Being obese. What are the signs or symptoms? The main symptom of this condition is pulsating or throbbing pain. This pain may: Happen in any area of the head, such as on one side or both sides. Interfere with daily activities. Get worse with physical activity. Get worse with exposure to bright lights or loud noises. Other symptoms may include: Nausea. Vomiting. Dizziness. General sensitivity to bright lights, loud noises, or smells. Before you get a migraine headache, you may get warning signs (an aura). An aura may include: Seeing flashing lights or having blind spots. Seeing bright spots, halos, or zigzag lines. Having tunnel vision or blurred vision. Having numbness or a tingling feeling. Having trouble talking. Having muscle weakness. Some people have symptoms after a migraine headache (postdromal phase), such as: Feeling tired. Difficulty concentrating. How is this diagnosed? A migraine headache can be diagnosed based on: Your symptoms. A physical exam. Tests, such as: ?CT scan or an MRI of the head. These imaging tests can help rule out other causes of headaches. ?Taking fluid from the spine (lumbar puncture) and analyzing it (cerebrospinal fluid analysis, or CSF analysis). How is this treated? This condition may be treated with medicines that: Relieve pain. Relieve nausea. Prevent migraine headaches. Treatment for this condition may also include: Acupuncture. Lifestyle changes like avoiding foods that trigger migraine headaches. Biofeedback. Cognitive behavioral therapy. Follow these instructions at home: Medicines Take esmt-cie-mjegpne and prescription medicines only as told by your health care provider. Ask your health care provider if the medicine prescribed to you: ?Requires you to avoid driving or using heavy machinery. ?Can cause constipation. You may need to take these actions to prevent or treat constipation: ?Drink enough fluid to keep your urine pale yellow. ?Take nlph-gtm-tjcpgmt or prescription medicines. ?Eat foods that are high in fiber, such as beans, whole grains, and fresh fruits and vegetables. ?Limit foods that are high in fat and processed sugars, such as fried or sweet foods. Lifestyle Do not drink alcohol. Do not use any products that contain nicotine or tobacco, such as cigarettes, e-cigarettes, and chewing tobacco. If you need help quitting, ask your health care provider. Get at least 8 hours of sleep every night. Find ways to manage stress, such as meditation, deep breathing, or yoga. General instructions Keep a journal to find out what may trigger your migraine headaches. For example, write down: ?What you eat and drink. ?How much sleep you get. ?Any change to your diet or medicines. If you have a migraine headache: ?Avoid things that make your symptoms worse, such as bright lights. ?It may help to lie down in a dark, quiet room. ?Do not drive or use heavy machinery. ?Ask your health care provider what activities are safe for you while you are experiencing symptoms. Keep all follow-up visits as told by your health care provider. This is important. Contact a health care provider if: You develop symptoms that are different or more severe than your usual migraine headache symptoms. You have more than 15 headache days in one month. Get help right away if: Your migraine headache becomes severe. Your migraine headache lasts longer than 72 hours. You have a fever. You have a stiff neck. You have vision loss. Your muscles feel weak or like you cannot control them. You start to lose your balance often. You have trouble walking. You faint. You have a seizure. Summary A migraine headache is an intense, throbbing pain on one side or both sides of the head. Migraines may also cause other symptoms, such as nausea, vomiting, and sensitivity to light and noise. This condition may be treated with medicines and lifestyle changes. You may also need to avoid certain things that trigger a migraine headache. Keep a journal to find out what may trigger your migraine headaches. Contact your health care provider if you have more than 15 headache days in a month or you develop symptoms that are different or more severe than your usual migraine headache symptoms. This information is not intended to replace advice given to you by your health care provider. Make sure you discuss any questions you have with your health care provider. Document Released: 02/06/2006 Document Revised: 05/31/2019 Document Reviewed: 03/21/2019 [id number] Patient Education 2020 [employer]. 03/24/2022 12:08:08 Gastroesophageal Reflux Disease, Adult, Srls-ps-Lzeb Gastroesophageal Reflux Disease, Adult Gastroesophageal reflux (JO) happens when acid from the stomach flows up into the tube that connects the mouth and the stomach (esophagus). Normally, food travels down the esophagus and stays in the stomach to be digested. With JO, food and stomach acid sometimes move back up into the esophagus. You may have a disease called gastroesophageal reflux disease (GERD) if the reflux: Happens often. Causes frequent or very bad symptoms. Causes problems such as damage to the esophagus. When this happens, the esophagus becomes sore and swollen (inflamed). Over time, GERD can make small holes (ulcers) in the lining of the esophagus. What are the causes? This condition is caused by a problem with the muscle between the esophagus and the stomach. When this muscle is weak or not normal, it does not close properly to keep food and acid from coming back up from the stomach. The muscle can be weak because of: Tobacco use. . Having a certain type of hernia (hiatal hernia). Alcohol use. Certain foods and drinks, such as coffee, chocolate, onions, and peppermint. What increases the risk? You are more likely to develop this condition if you: Are overweight. Have a disease that affects your connective tissue. Use NSAID medicines. What are the signs or symptoms? Symptoms of this condition include: Heartburn. Difficult or painful swallowing. The feeling of having a lump in the throat. A bitter taste in the mouth. Bad breath. Having a lot of saliva. Having an upset or bloated stomach. Belching. Chest pain. Different conditions can cause chest pain. Make sure you see your doctor if you have chest pain. Shortness of breath or noisy breathing (wheezing). Ongoing (chronic) cough or a cough at night. Wearing away of the surface of teeth (tooth enamel). Weight loss. How is this treated? Treatment will depend on how bad your symptoms are. Your doctor may suggest: Changes to your diet. Medicine. Surgery. Follow these instructions at home: Eating and drinking Follow a diet as told by your doctor. You may need to avoid foods and drinks such as: ?Coffee and tea (with or without caffeine). ?Drinks that contain alcohol. ?Energy drinks and sports drinks. ?Bubbly (carbonated) drinks or sodas. ?Chocolate and cocoa. ?Peppermint and mint flavorings. ?Garlic and onions. ?Horseradish. ?Spicy and acidic foods. These include peppers, chili powder, winklre powder, vinegar, hot sauces, and BBQ sauce. ?[place] fruit juices and citrus fruits, such as oranges, keren, and limes. ?Tomato-based foods. These include red sauce, chili, salsa, and pizza with red sauce. ?Fried and fatty foods. These include donuts, martiniquais fries, potato chips, and high-fat dressings. ?High-fat meats. These include hot dogs, rib eye steak, sausage, ham, and cha. ?High-fat dairy items, such as whole milk, butter, and cream cheese. Eat small meals often. Avoid eating large meals. Avoid drinking large amounts of liquid with your meals. Avoid eating meals during the 2 3 hours before bedtime. Avoid lying down right after you eat. Do not exercise right after you eat. Lifestyle Do not use any products that contain nicotine or tobacco. These include cigarettes, e-cigarettes, and chewing tobacco. If you need help quitting, ask your doctor. Try to lower your stress. If you need help doing this, ask your doctor. If you are overweight, lose an amount of weight that is healthy for you. Ask your doctor about a safe weight loss goal. General instructions Pay attention to any changes in your symptoms. Take izxw-khg-hingeld and prescription medicines only as told by your doctor. Do not take aspirin, ibuprofen, or other NSAIDs unless your doctor says it is okay. Wear loose clothes. Do not wear anything tight around your waist. Raise (elevate) the head of your bed about 6 inches (15 cm). Avoid bending over if this makes your symptoms worse. Keep all follow-up visits as told by your doctor. This is important. Contact a doctor if: You have new symptoms. You lose weight and you do not know why. You have trouble swallowing or it hurts to swallow. You have wheezing or a cough that keeps happening. Your symptoms do not get better with treatment. You have a hoarse voice. Get help right away if: You have pain in your arms, neck, jaw, teeth, or back. You feel sweaty, dizzy, or light-headed. You have chest pain or shortness of breath. You throw up (vomit) and your throw-up looks like blood or coffee grounds. You pass out (faint). Your poop (stool) is bloody or black. You cannot swallow, drink, or eat. Summary If a person has gastroesophageal reflux disease (GERD), food and stomach acid move back up into the esophagus and cause symptoms or problems such as damage to the esophagus. Treatment will depend on how bad your symptoms are. Follow a diet as told by your doctor. Take all medicines only as told by your doctor. This information is not intended to replace advice given to you by your health care provider. Make sure you discuss any questions you have with your health care provider. Document Released: 07/25/2008 Document Revised: 08/15/2018 Document Reviewed: 08/15/2018 [id number] Patient Education 2020 [employer]. 03/24/2022 12:08:05 Managing Bipolar Disorder Managing Bipolar Disorder When someone is diagnosed with bipolar disorder, the person may be relieved to now know why he or she has felt or behaved a certain way. The person may also feel overwhelmed about the treatment ahead, how to get needed support, and how to deal with the condition each day. With care and support, a person with bipolar disorder can learn to manage his or her symptoms and live with the condition. How to manage lifestyle changes Managing stress Stress is your body's reaction to life changes and events, both good and bad. Stress can play a major role in bipolar disorder, so it is important to learn how to manage stress. Some techniques to help you manage stress include: Meditation, muscle relaxation, and breathing exercises. Exercise. Even a short daily walk can help to lower stress levels. Getting enough good-quality sleep. Too little sleep can cause federico to start (can trigger federico). Making a schedule to manage your time. Knowing your daily schedule can help to keep you from feeling overwhelmed by tasks and deadlines. Spending time on hobbies you enjoy. Medicines Your health care provider may suggest certain medicines if he or she feels that they will help improve your condition. Avoid using caffeine, alcohol, and other substances that may prevent your medicines from working properly. It is also important to: Talk with your pharmacist or health care provider about all the medicines that you take, their possible side effects, and which medicines are safe to take together. Make it your goal to take part in all treatment decisions (shared decision-making). Ask about possible side effects of medicines that your health care provider recommends, and tell him or her how you feel about having those side effects. It is best if shared decision-making with your health care provider is part of your total treatment plan. If you are taking medicines as part of your treatment, do not stop taking medicines before you ask your health care provider if it is safe to stop. You may need to have the medicine slowly decreased (tapered) over time to lower the risk of harmful side effects. Relationships Spend time with people whom you trust and with whom you feel a sense of understanding and calm. Try to find friends or family members who make you feel safe and can help you control feelings of federico. Consider going to couples counseling, family education classes, or family therapy to: Educate your loved ones about your condition and offer suggestions about how they can support you. Help resolve conflicts. Help develop communication skills in your relationships. How to recognize changes in your condition Everyone responds differently to treatment for bipolar disorder. Some signs that your condition is improving include: Leveling of your mood. You may have less anger and excitement about daily activities, and your low moods may not be as bad. Your symptoms being less intense. Feeling calm more often. Thinking clearly. Not experiencing consequences for extreme behavior. Feeling like your life is settling down. Your behavior seeming more normal to you and to other people. Some signs that your condition may be getting worse include: Sleep problems. Moods cycling between deep lows and unusually high (excess) energy. Extreme emotions. More anger at loved ones. Staying away from others, or isolating yourself. A feeling of power or superiority. Completing a lot of tasks in a very short amount of time. Unusual thoughts and behaviors. Suicidal thoughts. Follow these instructions at home: Medicines Take wteo-phv-qmlvdvm and prescription medicines only as told by your health care provider or pharmacist. Ask your pharmacist what zryp-uax-nryrdir cold medicines you should avoid. Some medicines can make symptoms worse. General instructions Ask for support from trusted family members or friends to make sure you stay on track with your treatment. Keep a journal to write down your daily moods, medicines, sleep habits, and life events. This may help you have more success with your treatment. Make and follow a routine for daily meal times. Eat healthy foods, such as whole grains, vegetables, and fresh fruit. Try to go to sleep and wake up around the same time every day. Keep all follow-up visits as told by your health care provider. This is important. Where to find support Talking to others Try making a list of the people you may want to tell about your condition, such as the people you trust most. Plan what you are willing and not willing to talk about. Think about your needs ahead of time, and how your friends and family members can support you. Let your loved ones know when they can share advice and when you would just like them to listen. Give your loved ones information about bipolar disorder, and encourage them to learn about the condition. Finances Not all insurance plans cover mental health care, so it is important to check with your insurance carrier. If paying for co-pays or counseling services is a problem, search for a local or [facility] mental health care center. Public mental health care services may be offered there at a low cost or no cost when you are not able to see a private health care provider. If you are taking medicine for depression, you may be able to get the generic form, which may be less expensive than brand-name medicine. Some makers of prescription medicines also offer help to patients who cannot afford the medicines they need. Questions to ask your health care provider: If you are taking medicines: ?How long do I need to take medicine? ?Are there any long-term side effects of my medicine? ?Are there any alternatives to taking medicine? How would I benefit from therapy? How often should I follow up with a health care provider? Contact a health care provider if: Your symptoms get worse or they do not get better with treatment. Get help right away if: You have thoughts about harming yourself or others. If you ever feel like you may hurt yourself or others, or have thoughts about taking your own life, get help right away. You can go to your nearest emergency department or call: Your local emergency services (911 in the [place] A suicide crisis helpline, such as the National Suicide Prevention Lifeline at . This is open 24-hours a day. Summary Learning ways to manage stress can help to calm you and may also help your treatment work better. There is a wide range of medicines that can help to treat bipolar disorder. Having healthy relationships can help to make your moods more stable. Contact a health care provider if your symptoms get worse or they do not get better with treatment. This information is not intended to replace advice given to you by your health care provider. Make sure you discuss any questions you have with your health care provider. Document Released: 06/08/2017 Document Revised: 05/31/2019 Document Reviewed: 06/08/2017 [id number] Patient Education 2019 [employer]. Follow Up Care 01/20/2022 11:23:06 With:Ana Bynum CNP Address: When: only if needed [facility] 01-20-2022 Evaluation + Plan note Future Scheduled TestsXR Spine Scoliosis 1 view 01/20/22XR Hip 2-3 Views Left 01/20/22 [facility] 01-20-2022 Hospital Discharg e instructions Patient Education 01/20/2022 11:29:12 Migraine Headache Migraine Headache A migraine headache is an intense, throbbing pain on one side or both sides of the head. Migraine headaches may also cause other symptoms, such as nausea, vomiting, and sensitivity to light and noise. A migraine headache can last from 4 hours to 3 days. Talk with your doctor about what things may bring on (trigger) your migraine headaches. What are the causes? The exact cause of this condition is not known. However, a migraine may be caused when nerves in the brain become irritated and release chemicals that cause inflammation of blood vessels. This inflammation causes pain. This condition may be triggered or caused by: Drinking alcohol. Smoking. Taking medicines, such as: ?Medicine used to treat chest pain (nitroglycerin). ? control pills. ?Estrogen. ?Certain blood pressure medicines. Eating or drinking products that contain nitrates, glutamate, aspartame, or tyramine. Aged cheeses, chocolate, or caffeine may also be triggers. Doing physical activity. Other things that may trigger a migraine headache include: Menstruation. . Hunger. Stress. Lack of sleep or too much sleep. Weather changes. Fatigue. What increases the risk? The following factors may make you more likely to experience migraine headaches: Being a certain age. This condition is more common in people who are 25 55 years old. Being female. Having a family history of migraine headaches. Being . Having a mental health condition, such as depression or anxiety. Being obese. What are the signs or symptoms? The main symptom of this condition is pulsating or throbbing pain. This pain may: Happen in any area of the head, such as on one side or both sides. Interfere with daily activities. Get worse with physical activity. Get worse with exposure to bright lights or loud noises. Other symptoms may include: Nausea. Vomiting. Dizziness. General sensitivity to bright lights, loud noises, or smells. Before you get a migraine headache, you may get warning signs (an aura). An aura may include: Seeing flashing lights or having blind spots. Seeing bright spots, halos, or zigzag lines. Having tunnel vision or blurred vision. Having numbness or a tingling feeling. Having trouble talking. Having muscle weakness. Some people have symptoms after a migraine headache (postdromal phase), such as: Feeling tired. Difficulty concentrating. How is this diagnosed? A migraine headache can be diagnosed based on: Your symptoms. A physical exam. Tests, such as: ?CT scan or an MRI of the head. These imaging tests can help rule out other causes of headaches. ?Taking fluid from the spine (lumbar puncture) and analyzing it (cerebrospinal fluid analysis, or CSF analysis). How is this treated? This condition may be treated with medicines that: Relieve pain. Relieve nausea. Prevent migraine headaches. Treatment for this condition may also include: Acupuncture. Lifestyle changes like avoiding foods that trigger migraine headaches. Biofeedback. Cognitive behavioral therapy. Follow these instructions at home: Medicines Take qbgz-bvi-eypwxsu and prescription medicines only as told by your health care provider. Ask your health care provider if the medicine prescribed to you: ?Requires you to avoid driving or using heavy machinery. ?Can cause constipation. You may need to take these actions to prevent or treat constipation: ?Drink enough fluid to keep your urine pale yellow. ?Take yndu-tyz-tbsqnhc or prescription medicines. ?Eat foods that are high in fiber, such as beans, whole grains, and fresh fruits and vegetables. ?Limit foods that are high in fat and processed sugars, such as fried or sweet foods. Lifestyle Do not drink alcohol. Do not use any products that contain nicotine or tobacco, such as cigarettes, e-cigarettes, and chewing tobacco. If you need help quitting, ask your health care provider. Get at least 8 hours of sleep every night. Find ways to manage stress, such as meditation, deep breathing, or yoga. General instructions Keep a journal to find out what may trigger your migraine headaches. For example, write down: ?What you eat and drink. ?How much sleep you get. ?Any change to your diet or medicines. If you have a migraine headache: ?Avoid things that make your symptoms worse, such as bright lights. ?It may help to lie down in a dark, quiet room. ?Do not drive or use heavy machinery. ?Ask your health care provider what activities are safe for you while you are experiencing symptoms. Keep all follow-up visits as told by your health care provider. This is important. Contact a health care provider if: You develop symptoms that are different or more severe than your usual migraine headache symptoms. You have more than 15 headache days in one month. Get help right away if: Your migraine headache becomes severe. Your migraine headache lasts longer than 72 hours. You have a fever. You have a stiff neck. You have vision loss. Your muscles feel weak or like you cannot control them. You start to lose your balance often. You have trouble walking. You faint. You have a seizure. Summary A migraine headache is an intense, throbbing pain on one side or both sides of the head. Migraines may also cause other symptoms, such as nausea, vomiting, and sensitivity to light and noise. This condition may be treated with medicines and lifestyle changes. You may also need to avoid certain things that trigger a migraine headache. Keep a journal to find out what may trigger your migraine headaches. Contact your health care provider if you have more than 15 headache days in a month or you develop symptoms that are different or more severe than your usual migraine headache symptoms. This information is not intended to replace advice given to you by your health care provider. Make sure you discuss any questions you have with your health care provider. Document Released: 02/06/2006 Document Revised: 05/31/2019 Document Reviewed: 03/21/2019 [id number] Patient Education 2020 [employer]. 01/20/2022 11:29:09 Hip Pain Hip Pain The hip is the joint between the upper legs and the lower pelvis. The bones, cartilage, tendons, and muscles of your hip joint support your body and allow you to move around. Hip pain can range from a minor ache to severe pain in one or both of your hips. The pain may be felt on the inside of the hip joint near the groin, or on the outside near the buttocks and upper thigh. You may also have swelling or stiffness in your hip area. Follow these instructions at home: Managing pain, stiffness, and swelling If directed, put ice on the painful area. To do this: ?Put ice in a plastic bag. ?Place a towel between your skin and the bag. ?Leave the ice on for 20 minutes, 2 3 times a day. If directed, apply heat to the affected area as often as told by your health care provider. Use the heat source that your health care provider recommends, such as a moist heat pack or a heating pad. ?Place a towel between your skin and the heat source. ?Leave the heat on for 20 30 minutes. ?Remove the heat if your skin turns bright red. This is especially important if you are unable to feel pain, heat, or cold. You may have a greater risk of getting burned. Activity Do exercises as told by your health care provider. Avoid activities that cause pain. General instructions Take rwer-dua-yczxgbo and prescription medicines only as told by your health care provider. Keep a journal of your symptoms. Write down: ?How often you have hip pain. ?The location of your pain. ?What the pain feels like. ?What makes the pain worse. Sleep with a pillow between your legs on your most comfortable side. Keep all follow-up visits as told by your health care provider. This is important. Contact a health care provider if: You cannot put weight on your leg. Your pain or swelling continues or gets worse after one week. It gets harder to walk. You have a fever. Get help right away if: You fall. You have a sudden increase in pain and swelling in your hip. Your hip is red or swollen or very tender to touch. Summary Hip pain can range from a minor ache to severe pain in one or both of your hips. The pain may be felt on the inside of the hip joint near the groin, or on the outside near the buttocks and upper thigh. Avoid activities that cause pain. Write down how often you have hip pain, the location of the pain, what makes it worse, and what it feels like. This information is not intended to replace advice given to you by your health care provider. Make sure you discuss any questions you have with your health care provider. Document Released: 07/27/2010 Document Revised: 06/24/2019 Document Reviewed: 06/24/2019 [id number] Patient Education 2020 [employer]. 01/20/2022 11:29:04 Tobacco Use Disorder Tobacco Use Disorder Tobacco use disorder (TUD) occurs when a person craves, seeks, and uses tobacco, regardless of the consequences. This disorder can cause problems with mental and physical health. It can affect your ability to have healthy relationships, and it can keep you from meeting your responsibilities at work, home, or school. Tobacco may be: Smoked as a cigarette or cigar. Inhaled using e-cigarettes. Smoked in a pipe or hookah. Chewed as smokeless tobacco. Inhaled into the nostrils as snuff. Tobacco products contain a dangerous chemical called nicotine, which is very addictive. Nicotine triggers hormones that make the body feel stimulated and works on areas of the brain that make you feel good. These effects can make it hard for people to quit nicotine. Tobacco contains many other unsafe chemicals that can damage almost every organ in the body. Smoking tobacco also puts others in danger due to fire risk and possible health problems caused by breathing in secondhand smoke. What are the signs or symptoms? Symptoms of TUD may include: Being unable to slow down or stop your tobacco use. Spending an abnormal amount of time getting or using tobacco. Craving tobacco. Cravings may last for up to 6 months after quitting. Tobacco use that: ?Interferes with your work, school, or home life. ?Interferes with your personal and social relationships. ?Makes you give up activities that you once enjoyed or found important. Using tobacco even though you know that it is: ?Dangerous or bad for your health or someone else's health. ?Causing problems in your life. Needing more and more of the substance to get the same effect (developing tolerance). Experiencing unpleasant symptoms if you do not use the substance (withdrawal). Withdrawal symptoms may include: ?Depressed, anxious, or irritable mood. ?Difficulty concentrating. ?Increased appetite. ?Restlessness or trouble sleeping. Using the substance to avoid withdrawal. How is this diagnosed? This condition may be diagnosed based on: Your current and past tobacco use. Your health care provider may ask questions about how your tobacco use affects your life. A physical exam. You may be diagnosed with TUD if you have at least two symptoms within a 12-month period. How is this treated? This condition is treated by stopping tobacco use. Many people are unable to quit on their own and need help. Treatment may include: Nicotine replacement therapy (NRT). NRT provides nicotine without the other harmful chemicals in tobacco. NRT gradually lowers the dosage of nicotine in the body and reduces withdrawal symptoms. NRT is available as: ?Hdcc-kii-ntzobtd gums, lozenges, and skin patches. ?Prescription mouth inhalers and nasal sprays. Medicine that acts on the brain to reduce cravings and withdrawal symptoms. A type of talk therapy that examines your triggers for tobacco use, how to avoid them, and how to cope with cravings (behavioral therapy). Hypnosis. This may help with withdrawal symptoms. Joining a support group for others coping with TUD. The best treatment for TUD is usually a combination of medicine, talk therapy, and support groups. Recovery can be a long process. Many people start using tobacco again after stopping (relapse). If you relapse, it does not mean that treatment will not work. Follow these instructions at home: Lifestyle Do not use any products that contain nicotine or tobacco, such as cigarettes and e-cigarettes. Avoid things that trigger tobacco use as much as you can. Triggers include people and situations that usually cause you to use tobacco. Avoid drinks that contain caffeine, including coffee. These may worsen some withdrawal symptoms. Find ways to manage stress. Wanting to smoke may cause stress, and stress can make you want to smoke. Relaxation techniques such as deep breathing, meditation, and yoga may help. Attend support groups as needed. These groups are an important part of long-term recovery for many people. General instructions Take bcot-xrv-ekfjauk and prescription medicines only as told by your health care provider. Check with your health care provider before taking any new prescription or bblb-nld-puwffgn medicines. Decide on a friend, family member, or smoking quit-line (such as 2-947-JPLN-NOW in the [place] that you can call or text when you feel the urge to smoke or when you need help coping with cravings. Keep all follow-up visits as told by your health care provider and therapist. This is important. Contact a health care provider if: You are not able to take your medicines as prescribed. Your symptoms get worse, even with treatment. Summary Tobacco use disorder (TUD) occurs when a person craves, seeks, and uses tobacco regardless of the consequences. This condition may be diagnosed based on your current and past tobacco use and a physical exam. Many people are unable to quit on their own and need help. Recovery can be a long process. The most effective treatment for TUD is usually a combination of medicine, talk therapy, and support groups. This information is not intended to replace advice given to you by your health care provider. Make sure you discuss any questions you have with your health care provider. Document Released: 10/12/2004 Document Revised: 01/24/2018 Document Reviewed: 01/24/2018 [id number] Patient Education 2020 [employer]. 01/20/2022 11:29:01 Gastroesophageal Reflux Disease, Adult Gastroesophageal Reflux Disease, Adult Gastroesophageal reflux (JO) happens when acid from the stomach flows up into the tube that connects the mouth and the stomach (esophagus). Normally, food travels down the esophagus and stays in the stomach to be digested. However, when a person has JO, food and stomach acid sometimes move back up into the esophagus. If this becomes a more serious problem, the person may be diagnosed with a disease called gastroesophageal reflux disease (GERD). GERD occurs when the reflux: Happens often. Causes frequent or severe symptoms. Causes problems such as damage to the esophagus. When stomach acid comes in contact with the esophagus, the acid may cause soreness (inflammation) in the esophagus. Over time, GERD may create small holes (ulcers) in the lining of the esophagus. What are the causes? This condition is caused by a problem with the muscle between the esophagus and the stomach (lower esophageal sphincter, or LES). Normally, the LES muscle closes after food passes through the esophagus to the stomach. When the LES is weakened or abnormal, it does not close properly, and that allows food and stomach acid to go back up into the esophagus. The LES can be weakened by certain dietary substances, medicines, and medical conditions, including: Tobacco use. . Having a hiatal hernia. Alcohol use. Certain foods and beverages, such as coffee, chocolate, onions, and peppermint. What increases the risk? You are more likely to develop this condition if you: Have an increased body weight. Have a connective tissue disorder. Use NSAID medicines. What are the signs or symptoms? Symptoms of this condition include: Heartburn. Difficult or painful swallowing. The feeling of having a lump in the throat. A bitter taste in the mouth. Bad breath. Having a large amount of saliva. Having an upset or bloated stomach. Belching. Chest pain. Different conditions can cause chest pain. Make sure you see your health care provider if you experience chest pain. Shortness of breath or wheezing. Ongoing (chronic) cough or a night-time cough. Wearing away of tooth enamel. Weight loss. How is this diagnosed? Your health care provider will take a medical history and perform a physical exam. To determine if you have mild or severe GERD, your health care provider may also monitor how you respond to treatment. You may also have tests, including: A test to examine your stomach and esophagus with a small camera (endoscopy). A test that measures the acidity level in your esophagus. A test that measures how much pressure is on your esophagus. A barium swallow or modified barium swallow test to show the shape, size, and functioning of your esophagus. How is this treated? The goal of treatment is to help relieve your symptoms and to prevent complications. Treatment for this condition may vary depending on how severe your symptoms are. Your health care provider may recommend: Changes to your diet. Medicine. Surgery. Follow these instructions at home: Eating and drinking Follow a diet as recommended by your health care provider. This may involve avoiding foods and drinks such as: ?Coffee and tea (with or without caffeine). ?Drinks that contain alcohol. ?Energy drinks and sports drinks. ?Carbonated drinks or sodas. ?Chocolate and cocoa. ?Peppermint and mint flavorings. ?Garlic and onions. ?Horseradish. ?Spicy and acidic foods, including peppers, chili powder, winkler powder, vinegar, hot sauces, and barbecue sauce. ?[place] fruit juices and citrus fruits, such as oranges, keren, and limes. ?Tomato-based foods, such as red sauce, chili, salsa, and pizza with red sauce. ?Fried and fatty foods, such as donuts, martiniquais fries, potato chips, and high-fat dressings. ?High-fat meats, such as hot dogs and fatty cuts of red and white meats, such as rib eye steak, sausage, ham, and cha. ?High-fat dairy items, such as whole milk, butter, and cream cheese. Eat small, frequent meals instead of large meals. Avoid drinking large amounts of liquid with your meals. Avoid eating meals during the 2 3 hours before bedtime. Avoid lying down right after you eat. Do not exercise right after you eat. Lifestyle Do not use any products that contain nicotine or tobacco, such as cigarettes, e-cigarettes, and chewing tobacco. If you need help quitting, ask your health care provider. Try to reduce your stress by using methods such as yoga or meditation. If you need help reducing stress, ask your health care provider. If you are overweight, reduce your weight to an amount that is healthy for you. Ask your health care provider for guidance about a safe weight loss goal. General instructions Pay attention to any changes in your symptoms. Take coqv-jxh-csxolaa and prescription medicines only as told by your health care provider. Do not take aspirin, ibuprofen, or other NSAIDs unless your health care provider told you to do so. Wear loose-fitting clothing. Do not wear anything tight around your waist that causes pressure on your abdomen. Raise (elevate) the head of your bed about 6 inches (15 cm). Avoid bending over if this makes your symptoms worse. Keep all follow-up visits as told by your health care provider. This is important. Contact a health care provider if: You have: ?New symptoms. ?Unexplained weight loss. ?Difficulty swallowing or it hurts to swallow. ?Wheezing or a persistent cough. ?A hoarse voice. Your symptoms do not improve with treatment. Get help right away if you: Have pain in your arms, neck, jaw, teeth, or back. Feel sweaty, dizzy, or light-headed. Have chest pain or shortness of breath. Vomit and your vomit looks like blood or coffee grounds. Faint. Have stool that is bloody or black. Cannot swallow, drink, or eat. Summary Gastroesophageal reflux happens when acid from the stomach flows up into the esophagus. GERD is a disease in which the reflux happens often, causes frequent or severe symptoms, or causes problems such as damage to the esophagus. Treatment for this condition may vary depending on how severe your symptoms are. Your health care provider may recommend diet and lifestyle changes, medicine, or surgery. Contact a health care provider if you have new or worsening symptoms. Take uudj-apx-dtgwydw and prescription medicines only as told by your health care provider. Do not take aspirin, ibuprofen, or other NSAIDs unless your health care provider told you to do so. Keep all follow-up visits as told by your health care provider. This is important. This information is not intended to replace advice given to you by your health care provider. Make sure you discuss any questions you have with your health care provider. Document Released: 11/16/2005 Document Revised: 08/15/2018 Document Reviewed: 08/15/2018 [id number] Patient Education 2020 [employer] [facility] 12/23/2021 13:31:55 With:Ana Bynum CNP Address: [address] [place] [phone] When:1 month [facility] 12-23-2021 Hospital Discharg e instructions Patient Education 12/23/2021 13:31:35 BMI for Adults BMI for Adults Body mass index (BMI) is a number that is calculated from a person's weight and height. BMI may help to estimate how much of a person's weight is composed of fat. BMI can help identify those who may be at higher risk for certain medical problems. How is BMI used with adults? BMI is used as a screening tool to identify possible weight problems. It is used to check whether a person is obese, overweight, healthy weight, or underweight. How is BMI calculated? BMI measures your weight and compares it to your height. This can be done either in [place] ([place] or metric measurements. Note that charts are available to help you find your BMI quickly and easily without having to do these calculations yourself. To calculate your BMI in [place] ([place] measurements, your health care provider will: 1.Measure your weight in pounds (lb). 2.Multiply the number of pounds by 703. For example, for a person who weighs 180 lb, multiply that number by 703, which equals 126,540. 3.Measure your height in inches (in). Then multiply that number by itself to get a measurement called inches squared. For example, for a person who is 70 in tall, the inches squared measurement is 70 in x 70 in, which equals 4900 inches squared. 4.Divide the total from Step 2 (number of lb x 703) by the total from Step 3 (inches squared): 126,540 4900 = 25.8. This is your BMI. To calculate your BMI in metric measurements, your health care provider will: 1.Measure your weight in kilograms (kg). 2.Measure your height in meters (m). Then multiply that number by itself to get a measurement called meters squared. For example, for a person who is 1.75 m tall, the meters squared measurement is 1.75 m x 1.75 m, which is equal to 3.1 meters squared. 3.Divide the number of kilograms (your weight) by the meters squared number. In this example: 70 3.1 = 22.6. This is your BMI. How is BMI interpreted? To interpret your results, your health care provider will use BMI charts to identify whether you are underweight, normal weight, overweight, or obese. The following guidelines will be used: Underweight: BMI less than 18.5. Normal weight: BMI between 18.5 and 24.9. Overweight: BMI between 25 and 29.9. Obese: BMI of 30 and above. Please note: Weight includes both fat and muscle, so someone with a muscular build, such as an athlete, may have a BMI that is higher than 24.9. In cases like these, BMI is not an accurate measure of body fat. To determine if excess body fat is the cause of a BMI of 25 or higher, further assessments may need to be done by a health care provider. BMI is usually interpreted in the same way for men and women. Why is BMI a useful tool? BMI is useful in two ways: Identifying a weight problem that may be related to a medical condition, or that may increase the risk for medical problems. Promoting lifestyle and diet changes in order to reach a healthy weight. Summary Body mass index (BMI) is a number that is calculated from a person's weight and height. BMI may help to estimate how much of a person's weight is composed of fat. BMI can help identify those who may be at higher risk for certain medical problems. BMI can be measured using [place] measurements or metric measurements. To interpret your results, your health care provider will use BMI charts to identify whether you are underweight, normal weight, overweight, or obese. This information is not intended to replace advice given to you by your health care provider. Make sure you discuss any questions you have with your health care provider. Document Released: 10/18/2004 Document Revised: 01/19/2018 Document Reviewed: 12/20/2017 [id number] Patient Education 2020 [employer]. 12/23/2021 13:31:31 Dizziness Dizziness Dizziness is a common problem. It is a feeling of unsteadiness or light-headedness. You may feel like you are about to faint. Dizziness can lead to injury if you stumble or fall. Anyone can become dizzy, but dizziness is more common in older adults. This condition can be caused by a number of things, including medicines, dehydration, or illness. Follow these instructions at home: Eating and drinking Drink enough fluid to keep your urine clear or pale yellow. This helps to keep you from becoming dehydrated. Try to drink more clear fluids, such as water. Do not drink alcohol. Limit your caffeine intake if told to do so by your health care provider. Check ingredients and nutrition facts to see if a food or beverage contains caffeine. Limit your salt (sodium) intake if told to do so by your health care provider. Check ingredients and nutrition facts to see if a food or beverage contains sodium. Activity Avoid making quick movements. ?Rise slowly from chairs and steady yourself until you feel okay. ?In the morning, first sit up on the side of the bed. When you feel okay, stand slowly while you hold onto something until you know that your balance is fine. If you need to brim stretching machine operator one place for a long time, move your legs often. Tighten and relax the muscles in your legs while you are standing. Do not drive or use heavy machinery if you feel dizzy. Avoid bending down if you feel dizzy. Place items in your home so that they are easy for you to reach without leaning over. Lifestyle Do not use any products that contain nicotine or tobacco, such as cigarettes and e-cigarettes. If you need help quitting, ask your health care provider. Try to reduce your stress level by using methods such as yoga or meditation. Talk with your health care provider if you need help to manage your stress. General instructions Watch your dizziness for any changes. Take eqix-fdv-qaobmjs and prescription medicines only as told by your health care provider. Talk with your health care provider if you think that your dizziness is caused by a medicine that you are taking. Tell a friend or a family member that you are feeling dizzy. If he or she notices any changes in your behavior, have this person call your health care provider. Keep all follow-up visits as told by your health care provider. This is important. Contact a health care provider if: Your dizziness does not go away. Your dizziness or light-headedness gets worse. You feel nauseous. You have reduced hearing. You have new symptoms. You are unsteady on your feet or you feel like the room is spinning. Get help right away if: You vomit or have diarrhea and are unable to eat or drink anything. You have problems talking, walking, swallowing, or using your arms, hands, or legs. You feel generally weak. You are not thinking clearly or you have trouble forming sentences. It may take a friend or family member to notice this. You have chest pain, abdominal pain, shortness of breath, or sweating. Your vision changes. You have any bleeding. You have a severe headache. You have neck pain or a stiff neck. You have a fever. These symptoms may represent a serious problem that is an emergency. Do not wait to see if the symptoms will go away. Get medical help right away. Call your local emergency services (911 in the [place] Do not drive yourself to the hospital. Summary Dizziness is a feeling of unsteadiness or light-headedness. This condition can be caused by a number of things, including medicines, dehydration, or illness. Anyone can become dizzy, but dizziness is more common in older adults. Drink enough fluid to keep your urine clear or pale yellow. Do not drink alcohol. Avoid making quick movements if you feel dizzy. Monitor your dizziness for any changes. This information is not intended to replace advice given to you by your health care provider. Make sure you discuss any questions you have with your health care provider. Document Released: 08/02/2001 Document Revised: 02/09/2018 Document Reviewed: 03/11/2017 [id number] Patient Education 2020 [employer]. 12/23/2021 13:31:27 Gastroesophageal Reflux Disease, Adult Gastroesophageal Reflux Disease, Adult Gastroesophageal reflux (JO) happens when acid from the stomach flows up into the tube that connects the mouth and the stomach (esophagus). Normally, food travels down the esophagus and stays in the stomach to be digested. However, when a person has JO, food and stomach acid sometimes move back up into the esophagus. If this becomes a more serious problem, the person may be diagnosed with a disease called gastroesophageal reflux disease (GERD). GERD occurs when the reflux: Happens often. Causes frequent or severe symptoms. Causes problems such as damage to the esophagus. When stomach acid comes in contact with the esophagus, the acid may cause soreness (inflammation) in the esophagus. Over time, GERD may create small holes (ulcers) in the lining of the esophagus. What are the causes? This condition is caused by a problem with the muscle between the esophagus and the stomach (lower esophageal sphincter, or LES). Normally, the LES muscle closes after food passes through the esophagus to the stomach. When the LES is weakened or abnormal, it does not close properly, and that allows food and stomach acid to go back up into the esophagus. The LES can be weakened by certain dietary substances, medicines, and medical conditions, including: Tobacco use. . Having a hiatal hernia. Alcohol use. Certain foods and beverages, such as coffee, chocolate, onions, and peppermint. What increases the risk? You are more likely to develop this condition if you: Have an increased body weight. Have a connective tissue disorder. Use NSAID medicines. What are the signs or symptoms? Symptoms of this condition include: Heartburn. Difficult or painful swallowing. The feeling of having a lump in the throat. A bitter taste in the mouth. Bad breath. Having a large amount of saliva. Having an upset or bloated stomach. Belching. Chest pain. Different conditions can cause chest pain. Make sure you see your health care provider if you experience chest pain. Shortness of breath or wheezing. Ongoing (chronic) cough or a night-time cough. Wearing away of tooth enamel. Weight loss. How is this diagnosed? Your health care provider will take a medical history and perform a physical exam. To determine if you have mild or severe GERD, your health care provider may also monitor how you respond to treatment. You may also have tests, including: A test to examine your stomach and esophagus with a small camera (endoscopy). A test that measures the acidity level in your esophagus. A test that measures how much pressure is on your esophagus. A barium swallow or modified barium swallow test to show the shape, size, and functioning of your esophagus. How is this treated? The goal of treatment is to help relieve your symptoms and to prevent complications. Treatment for this condition may vary depending on how severe your symptoms are. Your health care provider may recommend: Changes to your diet. Medicine. Surgery. Follow these instructions at home: Eating and drinking Follow a diet as recommended by your health care provider. This may involve avoiding foods and drinks such as: ?Coffee and tea (with or without caffeine). ?Drinks that contain alcohol. ?Energy drinks and sports drinks. ?Carbonated drinks or sodas. ?Chocolate and cocoa. ?Peppermint and mint flavorings. ?Garlic and onions. ?Horseradish. ?Spicy and acidic foods, including peppers, chili powder, winkler powder, vinegar, hot sauces, and barbecue sauce. ?[place] fruit juices and citrus fruits, such as oranges, keren, and limes. ?Tomato-based foods, such as red sauce, chili, salsa, and pizza with red sauce. ?Fried and fatty foods, such as donuts, martiniquais fries, potato chips, and high-fat dressings. ?High-fat meats, such as hot dogs and fatty cuts of red and white meats, such as rib eye steak, sausage, ham, and cha. ?High-fat dairy items, such as whole milk, butter, and cream cheese. Eat small, frequent meals instead of large meals. Avoid drinking large amounts of liquid with your meals. Avoid eating meals during the 2 3 hours before bedtime. Avoid lying down right after you eat. Do not exercise right after you eat. Lifestyle Do not use any products that contain nicotine or tobacco, such as cigarettes, e-cigarettes, and chewing tobacco. If you need help quitting, ask your health care provider. Try to reduce your stress by using methods such as yoga or meditation. If you need help reducing stress, ask your health care provider. If you are overweight, reduce your weight to an amount that is healthy for you. Ask your health care provider for guidance about a safe weight loss goal. General instructions Pay attention to any changes in your symptoms. Take zmzv-lyq-ymzwqie and prescription medicines only as told by your health care provider. Do not take aspirin, ibuprofen, or other NSAIDs unless your health care provider told you to do so. Wear loose-fitting clothing. Do not wear anything tight around your waist that causes pressure on your abdomen. Raise (elevate) the head of your bed about 6 inches (15 cm). Avoid bending over if this makes your symptoms worse. Keep all follow-up visits as told by your health care provider. This is important. Contact a health care provider if: You have: ?New symptoms. ?Unexplained weight loss. ?Difficulty swallowing or it hurts to swallow. ?Wheezing or a persistent cough. ?A hoarse voice. Your symptoms do not improve with treatment. Get help right away if you: Have pain in your arms, neck, jaw, teeth, or back. Feel sweaty, dizzy, or light-headed. Have chest pain or shortness of breath. Vomit and your vomit looks like blood or coffee grounds. Faint. Have stool that is bloody or black. Cannot swallow, drink, or eat. Summary Gastroesophageal reflux happens when acid from the stomach flows up into the esophagus. GERD is a disease in which the reflux happens often, causes frequent or severe symptoms, or causes problems such as damage to the esophagus. Treatment for this condition may vary depending on how severe your symptoms are. Your health care provider may recommend diet and lifestyle changes, medicine, or surgery. Contact a health care provider if you have new or worsening symptoms. Take hujb-sip-czxrehp and prescription medicines only as told by your health care provider. Do not take aspirin, ibuprofen, or other NSAIDs unless your health care provider told you to do so. Keep all follow-up visits as told by your health care provider. This is important. This information is not intended to replace advice given to you by your health care provider. Make sure you discuss any questions you have with your health care provider. Document Released: 11/16/2005 Document Revised: 08/15/2018 Document Reviewed: 08/15/2018 [employer] Patient Education 2020 [employer] Follow Up Care 12/08/2021 11:15:05 With:Ana Bynmu CNP Address: [address] [place] [address] [place] [phone] [phone] When:1 month [facility] 10-22-2021 Hospital Discharg e instructions Patient Education 10/21/2021 23:55:18 Nausea and Vomiting, Adult, Ayfx-ia-Vrmb Nausea and Vomiting, Adult Nausea is feeling sick to your stomach or feeling that you are about to throw up (vomit). Vomiting is when food in your stomach is thrown up and out of the mouth. Throwing up can make you feel weak. It can also make you lose too much water in your body (get dehydrated). If you lose too much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
--- NOTE | 2024-04-16 01:22 | ED_ITS ---
HPI - URI/Sore Throat General Chief Complaint: Upper Respiratory Infection Stated Complaint: COUGH Time Seen by Provider: 04/16/24 00:58 Source: patient Limitations: no limitations History of Present Illness HPI Narrative: 28-year-old female who is 20 weeks presents for evaluation of a cough that will not stop. She does not have a history of asthma or COPD. She does not smoke cigarettes but does use a vape pen. She states she cannot stop smoking. Her cough is worse at night. She has been using Robitussin without significant improvement. She has not had a fever since she had the flu 2 weeks ago. She denies any abdominal pain or vaginal bleeding or related complaints. Related Data Home Medications ?Medication ?Instructions ?Recorded ?Confirmed No Known Home Medications 04/16/24 04/16/24 Allergies Allergy/AdvReac Type Severity Reaction Status Date / Time Penicillins Allergy Unknown Verified 04/16/24 00:55 Review of Systems ROS Status of ROS 10 or more systems reviewed and unremark able except as noted in history and below PFSH PFSH Social History Little interest or pleasure in doing things: not at all Feeling down, depressed, or hopeless: not at all Exam Narrative Exam Narrative: Vital signs and Nursing Notes reviewed: Patient is afebrile with a normal pulse, normal blood pressure, she is not hypoxic with pulse ox of 99% on room air General: Awake, alert, oriented, no acute distress, intermittent dry cough noted HEENT: Normocephalic atraumatic, mucous membranes are moist and pink, eyes are clear, normal conjunctiva, vision is grossly intact, posterior pharynx is normal in appearance. Chest: Lungs are clear to auscultation with good air entry, there is no wheezing rhonchi or rales appreciated no accessory muscle use, patient is speaking in complete sentences-no chest wall tenderness to palpation, intermittent dry cough CVS: Regular rate and rhythm S1-S2, no murmurs rubs or gallops, pulses are brisk and equal bilaterally ABD: Soft, nondistended, nontender, no rebound guarding or rigidity, bowel sounds are normal, no pulsatile masses appreciated Extremities: Moving all extremities, no lower extremity tenderness or swelling noted, negative Homans' sign, pulses are brisk and equal bilaterally Skin: Normal in appearance without rash,pallor, petechiae or purpura Neuro: No focal deficits Constitutional Vital Signs, click to edit/add: Last Vital Signs Temp 98.6 F 04/16/24 00:50 Pulse 77 04/16/24 01:39 Resp 20 04/16/24 01:39 BP 104/69 04/16/24 00:50 Pulse Ox 97 04/16/24 01:39 O2 Del Method Room Air 04/16/24 01:39 Course Vital Signs Vital signs: Vital Signs Temperature 98.6 F 04/16/24 00:50 Pulse Rate 85 04/16/24 00:50 Respiratory Rate 18 04/16/24 00:50 Blood Pressure 104/69 04/16/24 00:50 Pulse Oximetry 99 04/16/24 00:50 Oxygen Delivery Method Room Air 04/16/24 00:50 Temperature 98.6 F 04/16/24 00:50 Pulse Rate 77 04/16/24 01:39 Respiratory Rate 20 04/16/24 01:39 Blood Pressure 104/69 04/16/24 00:50 Pulse Oximetry 97 04/16/24 01:39 Oxygen Delivery Method Room Air 04/16/24 01:39 MDM - URI/Sore Throat MDM Narrative Medical decision making narrative: This 28-year-old female who is 20 weeks presents for evaluation of a cough. The cough is keeping her up at night. She has been using Robitussin. The cough is mostly dry but occasionally productive and she has some posttussive vomiting. She has been drinking tea with honey as well as her Robitussin and also using cough drops without significant improvement. She does not smoke but does use a vape pen. The patient's vital signs are stable and her lungs are clear. She was offered multiple options for her cough including Tylenol with codeine if she consented to a category C medication in . She declined this. She was agreeable to a breathing treatment and a dose of Benadryl. She was given both a breathing treatment and Benadryl. Her cough did seem to slow down at some point but she is still having the same cough. I discussed prednisone which does not seem to be a good idea at this stage of her especially since she is not wheezing and is not asthmatic. I offered her a chest x-ray which she declined due to her . I offered her an albuterol MDI as a prescription but the reading treatment did not really help her cough and she declined this. She was encouraged to drink plenty of fluids and use cbhs-eba-vqpygen cough medications that are safe in and consultation with her BROKER ASSOCIATE. Discharge Plan Discharge Chief Complaint: Upper Respiratory Infection Clinical Impression: Viral upper respiratory tract infection with cough Patient Disposition: Home, Self-Care Time of Disposition Decision: 02:07 Condition: Good Prescriptions / Home Meds: No Action No Known Home Medications Print Language: Nicaraguan Instructions: Upper Respiratory Infection (ED) Referrals: Physician,Non-Staff, MD [Primary Care Provider] - 1 week
[2024-04-16] MEDS: DIPHENHYDRAMINE HCL 25 MG CAPSULE PO (01:25)
[2024-04-16] MEDS: IPRATROPIUM/ALBUTEROL SULFATE 3 ML AMPUL.NEB IH (01:37)
[2024-04-16 01:39] VITALS: PULSE 77; O2SAT 97
== END 2024-04-16 02:20 | disposition home or self-care (01) ==
PROVIDERS: Emergency Provider Emergency Medicine
DX: R05.9 Cough, unspecified (principal); O26.892 Other specified pregnancy related conditions, second trimester; J06.9 Acute upper respiratory infection, unspecified; Z87.891 Personal history of nicotine dependence; Z3A.20 20 weeks gestation of pregnancy
CPT/HCPCS: 94640; 99283